=== PATIENT | male | born 1935 | race Caucasian/White ===

== ENCOUNTER → 2016-12-11 | Day surgery (SDC) | payer OTHER, MEDICARE ==
[~2016-12-11] VITALS: Ht 170.2 cm; Wt 73.5 kg
[~2016-12-11] MED LIST: CARAFATE 1GM1000 MG PO; CARDURA4 MG PO; CIPROFLOXACIN500 MG PO; FERROUS SULFAT325 M1 PO; FOLIC ACID 1 MG PO; GLIPIZIDE ER2.5 M1 PO; GLIPIZIDE ER2.5 MG PO; INDERAL LA 60MG60 MG PO; INDERAL LA60 M1 PO; MAG-OX 400400 MG PO; METFORMIN1000 MG PO; MULTIVITAMIN1 TAB PO; NATURAL IRON65 MG PO; OXYCODONE5 M1 PO; PRESERVISION A1 EAC1; PRILOSEC 20MG C20 MG PO; PROPRANOLOL HCL60 MG PO; TRAZODONE HCL100 M1 PO; Theragran Vitamins PO; VITAMIN B-150 MG PO; VITAMIN B121000 MC1 SL; VITAMIN D31000 IU PO; [UNRECOGNIZED DRUG - MIXTURE] TOP
[2016-12-11 06:20] LABS: ABSOLUTE BASOPHIL COUNT 0 /CUMM (0.0-0.2); ABSOLUTE EOSINOPHIL COUNT 0.3 /CUMM (0.0-0.7); ABSOLUTE LYMPH COUNT 0.7 /CUMM (1.2-3.4); ABSOLUTE MONOCYTE COUNT 0.9 /CUMM (0.10-0.60); BASOPHIL % 0.6 % (0.0-2.0); EOSINOPHIL % 6.3 % (0-5); GRANULOCYTE % 61.2 % (42.2-75.2); HEMATOCRIT 30.4 % (42-52); MEAN CORPUSCULAR HGB CONC 33.4 G/DL (33.0-37.0); MEAN CORPUSCULAR VOLUME 92.8 FL (80.0-94.0); MEAN PLATELET VOLUME 9.7 FL (7.4-10.4); RBC DISTRIBUTION WIDTH 15.5 % (11.5-14.5); RED BLOOD CELL CT 3.28 /CUMM (4.70-6.10)
[2016-12-11 06:25] LABS: PT 14.1 SEC (9.4-12.5)
[2016-12-11 06:37] LABS: PLATELET COUNT 84 /CUMM (130-400)
--- NOTE | 2016-12-11 11:48 | Operative Report ---
Operative/Inv Procedure Report Surgery Date: 12/11/16 Name of Procedure: Left inguinal hernia repair Pre-Operative Diagnosis: Left inguinal hernia Post-Operative Diagnosis: Same Estimated Blood Loss: scant Surgeon/Fiberglass Insulation Installer: RANJIT VAZQUEZ,HAMILTON Tillman/terry GUEVARA Anesthesia: local monitored anesthesi Implants: Plug and patch Operative/Procedure Note Note: After consent is brought to the operating room laid supine. Sedation was obtained and his left inguinal region was prepped and draped. Ilioinguinal nerve block was created with a cocktail local anesthesia. Skin and subcutaneous tissues tissues and after local anesthesia. A transverse skin crease incision was made sharply and the subcutaneous tissues dissected with cautery. We came down through Amy's fascia with cautery. The superficial epigastric vein was suture ligated with 3-0 Vicryl the inguinal canals and delineated and evidence incision made through the direction of the external fibers. This was performed sharply. Planes behind the fascia was then created bluntly cord structures were circumferentially dissected. His large hernia sac and associated cord lipoma. A Brandon drain was placed around the cords structures. The cord was then dissected and vasculature and spermatic tube were then preserved. There is large cord lipoma as well as a large indirect sac which was both dissected free down to the internal ring. Sac was opened and contained no bowel. Closed with 3-0 Vicryl and reduced through the indirect defect. A plug was then placed to hold the tissue in place. An onlay patch of mesh was then placed. It was sutured with 2-0 Prolene along the inguinal ligament. This was done a running fashion. Superiorly it was anchored with interrupted 2-0 Prolene's. The tails were then tied together to create a snug but not tight closure. The wound was irrigated with saline. Hemostasis achieved with cautery. The external oblique was then closed over the cord structures with a running 3-0 Vicryl. The incision was then closed in layers of 3-0 and 4-0 Vicryl suture. Steri-Strips and sterile dressing applied. Sponge and needle counts are correct Findings: indirect CC: STEVE VAZQUEZ,BOLIVAR Zuniga
== END ==
LOC: STS 01:42
PROVIDERS: Surgery
DX: K40.90 Unilateral inguinal hernia, without obstruction or gangrene, not specified as recurrent (principal); E11.9 Type 2 diabetes mellitus without complications; Z79.84 Long term (current) use of oral hypoglycemic drugs; K70.30 Alcoholic cirrhosis of liver without ascites; D46.9 Myelodysplastic syndrome, unspecified
CPT/HCPCS: 36415; J0131; J0690; J1100; J2250; J2405

== ENCOUNTER 2017-03-06 11:25 | Inpatient (IN) | payer OTHER, MEDICARE ==
[~2017-03-06] VITALS: Ht 170.2 cm; Wt 69.9 kg
[~2017-03-06 11:25] MED LIST changes: +CARDURA4 M1 PO; -CARDURA4 MG PO; +METFORMIN HCL1000 M1 PO; -METFORMIN1000 MG PO; -PRESERVISION A1 EAC1; +PRESERVISION A1 EAC1 PO; +VITAMIN B-121000 MC2 SL; -VITAMIN B121000 MC1 SL; -VITAMIN D31000 IU PO; +VITAMIN D31000 UNI2 PO
--- NOTE | 2017-03-06 11:57 | NUR ---
PT FELL GETTING OUT OF BED ON WEDNESDAY WAS SEEN AT CLINIC BUT DID NOT HAVE X-RAY AND PT CONT.TO HAVE PELVIC PAIN.
--- NOTE | 2017-03-06 12:03 | NUR ---
PT DECLINED PAIN ME IN TRIAGE
--- NOTE | 2017-03-06 12:49 | ED UPPER/LOWER EXTREMITY COMPL ---
History of Present Illness General Chief Complaint: Lower Extremity Problems Stated Complaint: LFT LEG/HIP PAIN S/P FALLX 2 DAYS Source: patient, family Exam Limitations: no limitations Vital Signs & Intake/Output Vital Signs & Intake/Output Vital Signs Date Time Temp Pulse Resp B/P B/P Pulse O2 O2 Flow FiO2 Mean Ox Delivery Rate 03/06 1411 97.6 68 18 152/68 100 Room Air 03/06 1158 97.2 69 16 130/63 98 Room Air Allergies Coded Allergies: NO KNOWN ALLERGIES (06/13/15) Reconcile Medications Cholecalciferol (Vitamin D3) 1,000 UNIT TABLET 1 TAB PO DAILY VITAMIN SUPPORT (Reported) Cyanocobalamin (Vitamin B-12) (Vitamin B-12) 1,000 MCG TAB.SUBL 1 TAB SL DAILY VITAMIN SUPPORT (Reported) Doxazosin Mesylate (Cardura) 4 MG TABLET 1 TAB PO DAILY PROSTATE (Reported) Ferrous Sulfate 325 MG (65 MG IRON) TABLET 1 TAB PO DAILY ANEMIA (Reported) Glipizide (Glipizide ER) 2.5 MG TAB.ER.24 1 TAB PO DAILY DM II (Reported) Metformin HCl 1,000 MG TABLET 1 TAB PO BID DIABETES (Reported) Propranolol LA (Inderal LA) 60 MG CAP.SA.24H 1 CAP PO DAILY TREMORS (Reported ) Trazodone HCl 100 MG TABLET 1 TAB PO QPM SLEEP (Reported) Vit C/E/Zn/Coppr/Lutein/Zeaxan (Preservision Areds 2 Softgel) 250-200-40 CAPSULE 1 TAB PO BID EYE (Reported) Triage Note: PT FELL GETTING OUT OF BED ON WEDNESDAY WAS SEEN AT CLINIC BUT DID NOT HAVE X-RAY AND PT CONT.TO HAVE PELVIC PAIN. Triage Nurses Notes Reviewed? yes HPI: 82 yo M PMH DM, peripheral neuropathy presenting with left hip pain s/p fall. Patient was getting out of bed 3 days ago, slipped, mechanical fall directly backwards onto buttocks, ongoing left hip pain since that time, much worse with ambulation or bearing weight, patient is unable to take more than 3-4 steps at a time with his cane (uses at baseline) secondary to pain, but seems very unsteady on his feet, is concerned he will fall again. Sustained ecchymosis to left buttocks and skin tear to right elbow. Denies head/neck trauma or pain, hedache, AMS, LOC, motor weakness, or new numbness (patient has BLE neuropathy at baseline). Denies chest pain, palpitations, SOB, dizziness or syncope associated with fall 3 days ago. Evaluated at walk 2 days ago, diagnosed with muscle contusion, no imaging, discharged, no tetanus given at that time (unknown last tetans). (CHARLENE GOMEZ MD) Past History Travel History Traveled to [place] past 21 day No Medical History Any Pertinent Medical History? 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 tracheostomy as infant. Psychosocial History Who do you live with Spouse Services at Home None What is your primary language Faroese Tobacco Use: Quit >30 days ago ETOH Use: denies use Illicit Drug Use: denies illicit drug use Family History Family History, If Any: maternal aunt, ; Cause: Alcoholic cirrhosis. Hx Contributory? Yes (CHARLENE GOMEZ MD) Review of Systems Review of Systems Constitutional: Reports: no symptoms. EENTM: Reports: no symptoms. Respiratory: Reports: no symptoms. Cardiovascular: Reports: no symptoms. Gastrointestinal/Abdominal: Reports: no symptoms. Genitourinary: Reports: no symptoms. Musculoskeletal: Reports: joint pain. Skin: Reports: no symptoms. Neurological/Psychological: Reports: no symptoms. Hematologic/Endocrine: Reports: no symptoms. Immunological: Reports: no symptoms. All Other Systems: Reviewed and Negative (CHARLENE GOMEZ MD) Physical Exam Physical Exam General Appearance: well developed/nourished, no apparent distress, alert, awake Head: atraumatic, normal appearance Eyes: Bilateral: PERRL, EOMI. Ears, Nose, Throat: normal pharynx, normal ENT inspection Neck: normal inspection, full range of motion Cardiovascular/Respiratory: normal peripheral pulses Peripheral Pulses: 2+ radial (R), 2+ radial (L), 2+ dorsalis pedis (R), 2+ dorsalis pedis (L) Gastrointestinal: Soft and non-TTP throughout Back: no vertebral tenderness Hip Left: tenderness, pain Comments: HEENT: Atraumatic, PERRL, EOMI, no nasal septal deviation or hematoma, no TTP or hematomas over scalp, no TTP over facial bones C-Spine: No midline c-spine TTP, step-offs or deformities Chest: No TTP over anterior chest wall and clavicles, equal breath sounds bilaterally Abdomen: Soft and nontender to palpation throughout Right Elbow: Skin tear over right proximal elbow, no active bleeding, full range of motion of right elbow without pain, no bony tenderness palpation over right elbow, 2+ radial pulse Left Hip: Pain with active and passive range of motion of left hip, bony tenderness to palpation over medial hip joint, 2+ DP pulses bilaterally, no motor deficits, Ecchymosis over left inferior buttocks with TTP (PATRICIA VAZQUEZ,CHARLENE) Progress Differential Diagnosis: arterial insufficiency, cellulitis, CHF, compartment syndrome, contusion, dislocation, DVT, fracture, gout, septic arthritis, sprain, tendon injury Plan of Care: Orders Procedure Date/time Status PARTIAL THROMBOPLASTIN TIME 03/06 1815 Complete PROTHROMBIN TIME 03/06 1815 Complete Admit to inpatient 03/06 1810 Active HEPATIC FUNCTION PANEL 03/06 1810 Active HEPATIC FUNCTION PANEL 03/06 172 Active CBC WITHOUT DIFFERENTIAL 03/06 1722 Complete BASIC METABOLIC PANEL 03/06 1722 Active Laboratory Tests 03/06/17 1835: PT 14.0 H, INR 1.34 H, APTT 35 03/06/17 1816: Total Bilirubin Cancelled, Direct Bilirubin Cancelled, AST Cancelled, ALT Cancelled, Alkaline Phosphatase Cancelled, Total Protein Cancelled, Albumin Cancelled 03/06/171809: Sodium Pending, Potassium Pending, Chloride Pending, Carbon Dioxide Pending, Anion Gap Pending, BUN Pending, Creatinine Pending, BUN/Creatinine Ratio Pending , Glucose Pending, Calcium Pending, Total Bilirubin Pending, Direct Bilirubin Pending, AST Pending, ALT Pending, Alkaline Phosphatase Pending, Total Protein Pending, Albumin Pending, CBC w Diff NO MAN DIFF REQ, RBC 3.40 L, MCV 93.5, MCH 31.3 H, RDW 16.6 H, MPV 9.6, Gran % 73.4, Lymphocytes % 12.1 L, Monocytes % 11.8 H, Eosinophils % 2.5, Basophils % 0.2, Absolute Granulocytes 4.0, Absolute Lymphocytes 0.7 L, Absolute Monocytes 0.6, Absolute Eosinophils 0.1, Absolute Basophils 0, PUBS MCHC 33.4 Physician MDM: 82 yo M PMH DM, peripheral neuropathy presenting with left hip pain s/p fall. VSS, trauma exam as above. DDx: Hip Fx, pelvic Fx, soft tissue injury, low concern for significant traumatic injury to head, C-spine, thorax, abdomen, or other extremities. Pelvis and left Hip XR with "Increased sclerosis of the left inferior pubic ramus questionable for fracture." Pelvis CT with "Acute nondisplaced left pubic ramus fracture." Patient unable to ambulate in ED more than 2-3 step without cane, very unsteady on his feet requiring support from multiple individuals to get back into bed. Given patient has underlying neuropathy, now with left inferior pubic ramus fracture, he has a multifactorial gait disorder and is not safe for discharge. Will admit for ongoing pain control, PT, nonemergent orthopedics consult if needed. The plan of care was discussed with the patient his expressed agreement and understanding. (PATRICIA VAZQUEZ,CHARLENE) Departure Departure Disposition: STILL A PATIENT Condition: Stable Clinical Impression Primary Impression: Fracture of left inferior pubic ramus Secondary Impressions: Unable to ambulate Referrals: STEVE VAZQUEZ,BOLIVAR Zuniga (PCP/Family) Departure Forms: Customer Survey General Discharge Information Admission Note Spoke With: WILLIAM SCHULTZ MD Documentation of Exam: Documentation of any treatments & extenuating circumstances including Concerns Regarding Discharge (functional status, medication knowledge or non-compliance, living conditions, etc.) that warrant an admission rather than observation: [ Patient presents with inability to ambulate after a fall 3 days ago, found to have left inferior pubic ramus fracture, patient unable to ambulate without marked assistance in ED, Significant concern that if the patient was discharged he would likely fall again resulting in further tabetic injury, or rigidity, possibly mortality, patient requires, furthermore the patient has baseline neuropathy that impairs his gait, now with an inferior ramus fracture the patient has a multifactorial gait disorder that will prevent him from walking safely unassisted, patient of ours admission for pain management, PT consult, orthopedics consult, monitoring and further management.] (PATRICIA VAZQUEZ,CHARLENE) Resident Co-Sign Statement Statement: ED Attending supervision documentation- I saw and evaluated the patient. I have also reviewed all the pertinent lab results and diagnostic results. I agree with the findings and the plan of care as documented in the Resident's documentation. x I have reviewed the ED Record and agree with the Resident's documentation. [] Additions or exceptions (if any) to the Resident's note and plan are summarized below: [] (LOIS VAZQUEZ,RHONA)
--- NOTE | 2017-03-06 13:07 | NUR ---
TO X-RAY VIA STRECHER
--- NOTE | 2017-03-06 13:15 | NUR ---
SEEN BY BRIGETTE VAZQUEZ
--- NOTE | 2017-03-06 13:51 | RADIOLOGY REPORT ---
EXAMINATION: XR HIP, LEFT CLINICAL INFORMATION: Fall. Evaluate for fracture. COMPARISON: None TECHNIQUE: Two views of the left hip and one view of the pelvis. FINDINGS: Bone alignment is normal. There is increased sclerosis of the left inferior pubic ramus questionable for fracture. No other fracture or dislocation is seen. There is arthritis at both hip joints. Degenerative changes of the visualized lower lumbar spine. There is evidence of atherosclerotic disease. There is a central calcification in the pelvis, questionable for possible bladder stone. IMPRESSION: Increased sclerosis of the left inferior pubic ramus questionable for fracture. Bilateral hip arthritis. Atherosclerotic disease. Question bladder stone.
[2017-03-06] MEDS ORDERED: FERROUS SULFAT325 M3 PO (15:08)
--- NOTE | 2017-03-06 15:13 | NUR ---
TO CT SCAN
--- NOTE | 2017-03-06 16:36 | CT SCAN REPORT ---
EXAMINATION: CT PELVIS WITHOUT CONTRAST CLINICAL INFORMATION: Difficulty weightbearing. Pain. History of fall. COMPARISON: Pelvis and left hip x-ray from earlier today. TECHNIQUE: Helical scanning was performed with submillimeter collimation through the pelvis. Sagittal and coronal multiplanar 2-D reconstructions were obtained. DLP: 511 mGy-cm FINDINGS: PELVIS: There is congestion of the small-bowel mesentery. There is evidence of diverticulosis. There is ascites. There is a 5 x 10 mm bladder stone. There is question of smaller layering stones versus dependent bladder wall calcification. The prostate gland is enlarged. There is evidence of atherosclerotic disease. OSSEOUS STRUCTURES: There is an acute nondisplaced fracture of the left inferior pubic ramus. No other fracture is seen. The bones are osteopenic. There is arthritis at the hip joints. There is degenerative disc disease of the visualized lower lumbar spine. IMPRESSION: Acute nondisplaced left pubic ramus fracture. No other fracture seen. Diverticulosis. Nonspecific haziness or congestion of the small-bowel mesentery. 5 x 10 mm bladder stone. Question smaller bladder stones versus dependent bladder wall calcification. Small amount of ascites.
--- NOTE | 2017-03-06 17:49 | NUR ---
PATIENT REMIANS ALERT ORIENTED SKIN WARM DRY RE-EVAL BY ER MD SEEN BY CASE MANAGEMENT TBA FOR REHAB DUE TO PELVIC FX GIVEN AFTERNOON TRAY
--- NOTE | 2017-03-06 18:26 | NUR ---
IV MED LOCK EST 22 LEFT UPPER F/A BLOOD WORK DRAWN AND SENT
[2017-03-06 18:31] LABS: ABSOLUTE BASOPHIL COUNT 0 /CUMM (0.0-0.2); ABSOLUTE EOSINOPHIL COUNT 0.1 /CUMM (0.0-0.7); ABSOLUTE LYMPH COUNT 0.7 /CUMM (1.2-3.4); ABSOLUTE MONOCYTE COUNT 0.6 /CUMM (0.10-0.60); BASOPHIL % 0.2 % (0.0-2.0); EOSINOPHIL % 2.5 % (0-5); GRANULOCYTE % 73.4 % (42.2-75.2); HEMATOCRIT 31.8 % (42-52); MEAN CORPUSCULAR HGB 31.3 PG (27.0-31.0); MEAN CORPUSCULAR HGB CONC 33.4 G/DL (33.0-37.0); MEAN CORPUSCULAR VOLUME 93.5 FL (80.0-94.0); MEAN PLATELET VOLUME 9.6 FL (7.4-10.4); PLATELET COUNT 91 /CUMM (130-400); RBC DISTRIBUTION WIDTH 16.6 % (11.5-14.5); WHITE BLOOD CELL COUNT 5.4 /CUMM (4.8-10.8)
[2017-03-06 18:52] LABS: PTT 35 SEC (25-37)
--- NOTE | 2017-03-06 19:09 | NUR ---
ASSUMED CARE OF PT PER ROHAN SANZ. PT LAYING ON STRETCHER WITH RR, WILL CONTINUE T O MONITOR. PT OFFERS NO COMPLAINTS AT THIS TIME.
--- NOTE | 2017-03-06 19:15 | NUR ---
FALL BRACELET PLACED ON PTS LEFT WRIST
--- NOTE | 2017-03-06 19:45 | NUR ---
DR SCHULTZ IN FOR EVAL
--- NOTE | 2017-03-06 20:44 | NUR ---
HOUSE STAFF IN FOR EVAL
--- NOTE | 2017-03-06 21:38 | NUR ---
PT BED ASSIGNMENT TO [id number]
--- NOTE | 2017-03-06 21:44 | History & Physical ---
[facility] 03/06/172136: General Information and HPI MD Statement: I have seen and personally examined PEDRO MYERS and documented this H&P. The patient is a 82 year old M who presented with a patient stated chief complaint of [inability to walk and left hip pain for two days.]. Exam Limitations: no limitations History of Present Illness: 82 YO M gentleman ex-smoker(1 PACK/D QUIT 40 Yrs back) PMH of diabetes mellitus with complication, peripheral neuropathy, alcoholic cirrhosis, portal hypertension with gastropathy, esophageal varices status post band ligation, essential tremors, cholelithiasis, thrombocytopenia(d/t portal hypertension), anxiety, depression, insomnia and inguinal hernia status post surgical repair presented to ED with complaint of inability to move and pain in left buttock for last 2 days. According to patient he was all right two days back when he woke up at 1:30am to urinate but lost his balance and fell down. He hit his buttock to ground and also hit his elbow to the dressing table. According to patient his son came in and helped him to get up and when he tried to walk he noticed pain in left buttock that increases on on walking, sharp pain, 10/10 on walking, nonradiating and and there is no pain at rest. He also noticed a bruise on his left buttock and a abrasion on his left elbow. He said he doesn't have any pain in left elbow and no moment restrictions. He also told us that he has a problem of BPH and sometimes he loses control on urination while getting out of the bed. He also reported that he is taking propranolol for tremors and portal hypertension but he stoped it one month back. He denied any chest pain, palpitations, nausea, vomiting, change in vision, sweating, shortness of breath, headache, shakiness in the body, loss of consciousness after fall, confusion after fall, fever and recent sore throat. Vitals signs stable on admission Alert oriented x3, cooperative, no distress, multiple ecchymosis on both forearms and abrasion on left elbow, and a bandage on right elbow. HEENT Atraumatic, PERRLA, EOMI CVS: R/R/R, S1+S2+0 Lungs: CTA, bilateral air entry normal Abdomen: Normal bowel sounds, nontender Neurological examination: Normal speech, power: 5/5 B/L X4, sensations: Impaired below the knees Bilateral pedal edema grade 1 LABS: Hemoglobin 10.6, bilirubin 1.4, platelets 91 Imaging: X-ray left hip:Increased sclerosis of the left inferior pubic ramus questionable for fracture. Bilateral hip arthritis. Atherosclerotic disease. Question bladder stone. CT scan:Acute nondisplaced left pubic ramus fracture. No other fracture seen. Diverticulosis. Nonspecific haziness or congestion of the small-bowel mesentery. 5 x 10 mm bladder stone. Question smaller bladder stones versus dependent bladder wall calcification. Small amount of ascites. ASSESSMENT/PLAN: Nondisplaced left pubic rami fracture status post mechanical fall Admitting general medicine floor Check Orthostatic vitals Baseline EKG X-ray right elbow tomorrow Tylenol for mild pain and tramadol for severe pain Orthopedic consult PT consult CIRRHOSIS/LOW PLT COUNT : Continue propranolol by mouth 10 mgXTID Low-sodium diet No HEPARIN No NSAIDs Continue vitamins FOR BPH: Continue doxazosin Follow-up with PCP for bladder stone ANEMIA: Watch for bleeding, CBCs in the morning Continue iron supplement. CODE STATUS: Full code, DVT PROPHYLAXIS: mechanical DVT prophylaxis Allergies/Medications Allergies: Coded Allergies: NO KNOWN ALLERGIES (06/13/15) Home Med list Cholecalciferol (Vitamin D3) 1,000 UNIT TABLET 1 TAB PO DAILY VITAMIN SUPPORT (Reported) Cyanocobalamin (Vitamin B-12) (Vitamin B-12) 1,000 MCG TAB.SUBL 1 TAB SL DAILY VITAMIN SUPPORT (Reported) Doxazosin Mesylate (Cardura) 4 MG TABLET 1 TAB PO DAILY PROSTATE (Reported) Ferrous Sulfate 325 MG (65 MG IRON) TABLET 1 TAB PO DAILY ANEMIA (Reported) Glipizide (Glipizide ER) 2.5 MG TAB.ER.24 1 TAB PO DAILY DM II (Reported) Metformin HCl 1,000 MG TABLET 1 TAB PO BID DIABETES (Reported) Propranolol LA (Inderal LA) 60 MG CAP.SA.24H 1 CAP PO DAILY TREMORS (Reported ) Trazodone HCl 100 MG TABLET 1 TAB PO QPM SLEEP (Reported) Vit C/E/Zn/Coppr/Lutein/Zeaxan (Preservision Areds 2 Softgel) 250-200-40 CAPSULE 1 TAB PO BID EYE (Reported) Past History Travel History Traveled to [place] past 21 day No Medical History Neurological: peripheral neuropathy, essential tremor EENT: hearing loss Cardiovascular: NONE Respiratory: NONE Gastrointestinal: Esophageal varices, band ligated Junctional varices Portal hypertensive gastropathy Hepatic: cholelithiasis, cirrhosis Renal: NONE Musculoskeletal: NONE Psychiatric: anxiety, depression, insomnia Endocrine: diabetes Blood Disorders: thrombocytopenia (cirrhotic) Cancer(s): NONE 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 tracheostomy as . Past Family/Social History Family History Relations & Conditions if any maternal aunt, ; Cause: Alcoholic cirrhosis. Psychosocial History Who Do You Live With? spouse Services at Home: None Primary Language: Turkish ETOH Use: denies use Illicit Drug Use: denies illicit drug use Living Will? full code Power of Relocation Counselor/HCP? unknown Functional Ability ADLs Independent: dressing, eating, toileting, bathing. Ambulation: independent IADLs Independent: shopping, housework, finances, food prep, telephone, transportation , medication admin. Review of Systems Review of Systems Constitutional: Reports: no symptoms. EENTM: Reports: no symptoms. Cardiovascular: Reports: edema. Respiratory: Reports: no symptoms. GI: Reports: constipation. Genitourinary: Reports: urgency. Musculoskeletal: Reports: no symptoms. Skin: Reports: no symptoms. Neurological/Psychological: Reports: tremors. Hematologic/Endocrine: Reports: bruising. Immunologic/Allergic: Reports: no symptoms. Exam & Diagnostic Data Last 24 Hrs of Vital Signs/I&O Vital Signs Date Time Temp Pulse Resp B/P B/P Pulse O2 O2 Flow FiO2 Mean Ox Delivery Rate 03/06 1911 98.6 72 18 151/69 97 Room Air 03/06 1411 97.6 68 18 152/68 100 Room Air 03/06 1158 97.2 69 16 130/63 98 Room Air Intake & Output 03/07 0800 03/07 0000 03/06 1600 Intake Total 250 Output Total 100 400 Balance -100 -150 Intake, Oral 250 Output, Urine 100 400 Patient 154 lb 154 lb Weight Weight Reported by Patient Reported by Patient Measurement Method Physical Exam General Appearance Alert, Oriented X3, Cooperative, No Acute Distress Skin No Rashes Skin Temp/Moisture Exam: Warm/Dry HEENT Atraumatic, PERRLA, EOMI Neck Supple Cardiovascular Regular Rate, Normal S1, Normal S2 Lungs Clear to Auscultation, Normal Air Movement Abdomen Normal Bowel Sounds, Soft, No Tenderness Neurological Normal Speech, Strength at 5/5 X4 Ext, Normal Tone, Cranial Nerves 3-12 NL Assessment/Plan Assessment: ASSESSMENT/PLAN: Nondisplaced left pubic rami fracture status post mechanical fall Admitting general medicine floor Check Orthostatic vitals Baseline EKG X-ray right elbow tomorrow Tylenol for mild pain and tramadol for severe pain Orthopedic consult PT consult CIRRHOSIS/LOW PLT COUNT : Continue propranolol by mouth 10 mgXTID Low-sodium diet No HEPARIN No NSAIDs Continue vitamins FOR BPH: Continue doxazosin Follow-up with PCP for bladder stone ANEMIA: Watch for bleeding, CBCs in the morning Continue iron supplement. CODE STATUS: Full code, DVT PROPHYLAXIS: mechanical DVT prophylaxis As Ranked By This Provider Problem List: 1. Fracture of left inferior pubic ramus 2. Cirrhosis 3. Thrombocytopenia 4. Esophageal varices Core Measures/Miscellaneous Acute Coronary Syndrome ACS Diagnosis: No Cerebrovascular Accident CVA/TIA Diagnosis: No Congestive Heart Failure CHF Diagnosis: No VTE (View Protocol) VTE Risk Factors: Age > 40 [facility] prophylaxis d/t: No contraindications No VTE Pharm Prophylaxis d/t: Medical contraindication VTE Diagnosis: No VTE Type: NONE VTE Confirmed by (Test): NONE Sepsis (View Protocol) Severe Sepsis Present: No Septic Shock Septic Shock Present: No Miscellaneous Documentation Attending Case Discussed With: Dr. ANTOINE THOMAS Primary Care Physician: STEVE VAZQUEZ,BOLIVAR Zuniga Patient sees these Specialists ORTHOPEDICS Level of Patient Care: General Medicine JAVAD MURO 03/06/173: Resident Review Statement Resident Statement: examined this patient, discussed with pharmacy graduate intern, agreed with pharmacy graduate intern, amended to note Other Findings: 82-year-old gentleman with past medical history of diabetes type 2 with diabetic neuropathy,essentional termors, alcoholic? cirrhosis and history of variceal bleeding status post gastric banding(on proponanol till 1 month ago, it was stopped by PCP due to tiredness), inguinal hernia status post repair ,BPH on doxazosin, trazodone for sleeping using cane for walking came with chief complaint of left hip pain which has been going on for 2 days. he reported that he fell at 1:30 AM about 2-3 days ago while standing up from the bed to go to the bathroom no loss of consciousness, dizziness, palpitations, sweating, chest pain, shortness of breath. Patient was able to walk small steps with pain 10 out of 10, nonradiating, sharp, allerivate with rest, contant while walking. He does not have any back pain however he does have urinary incontinency with drippling which is chronic. ex smoker, does not drink since 3 years ago. A deep also hit his head and had a bruise in his left buttocks and had a skin tear on the tight elbow. Patient reported that the pain on walking got worse for 2 days and Tylenol didn't help and he came to the hospital for direct. Vital signs on admission were stable Alert and oriented 3 HEENT Atraumatic, PERRLA, EOMI Cardiovascular Regular Rate, Normal S1, Normal S2 Lungs Clear to Auscultation, Normal Air Movement Abdomen Normal Bowel Sounds, Soft, No Tenderness, Neurological Normal Speech, Strength at 5/5 X4 Ext, Sensation impaired below both knees Extremities bilateral pedal edema to one third of the loving, Bandage on the right elbow, bruise on the left buttocks, No major limitation on passive movement of the left hip Labs were notable for anemia hemoglobin 10.6, bilirubin 1.4, platelet 91 CT of the hip IMPRESSION: Acute nondisplaced left pubic ramus fracture. No other fracture seen. Diverticulosis. Nonspecific haziness or congestion of the small-bowel mesentery. 5 x 10 mm bladder stone. Question smaller bladder stones versus dependent bladder wall calcification. Small amount of ascites. Assessment and plan #Nondisplaced left pubic ramus fracture status post mechanical fall -Admit to general medicine floor -check orthostatics -baseline EKG -Tylenol for mild and tramadol for severe pain -Orthopedic consult in the morning and PT consult # hx of Cirrhosis/ low plt -no NSAIDS - restart Propanolol by mouth 10 mg TID -low sodium diet - No heparin Sq for now -Continue B12 and multivitamin #hx of BPH/ new found bladder stone -Continue doxazosin -Follow-up with PCP for bladder stone Anemia -Stable, watch for bleeding, CBC in the morning -Continue iron supplementation insomnia/anxiety -Continue trazodone Full code, DVT prophylaxis is mechanical, diabetic and low sodium diet, Tylenol and tramadol for pain WILLIAM SCHULTZ 03/07/17 0045: Attending MD Review Statement Attending Statement Attending MD Statement: examined this patient, discuss w/resident/PA/CIVIL DESIGNER, agreed w/resident/PA/CIVIL DESIGNER, reviewed EMR data (avail), reviewed images, amended to note Attending Assessment/Plan: CC: Left groin pain persistent after fall PMH: DM, cirrhosis with esophageal varices, ascites, history of tremors, peripheral neuropathy Patient had fall on in [place] where he was visiting. He states that it's unclear how he fell down, he was conscious throughout, the space was narrow and surroundings were unfamiliar, so he may have had accidental fall according to him. He Did not have any palpitations, chest pain, loss of consciousness, head trauma before or after the fall. Next morning patient went to urgent care with the did x-ray of his left hip and some dressing for the wound on right arm. X-ray was negative and he was suggested pain control. Patient persisted to have pain in left groin and pelvic area. He returned back to [place] today. Last 3 days patient was barely able to walk with the help of cane because of pain, he did not notice any neurological weakness in lower extremity, back pain, blood in urine. No alcohol since 3 year Vitals: Unremarkable On exam: A O 3, cooperative, no acute distress, neck supple, JVD normal, no lymphadenopathy, mucosa moist, no focal neurological deficit, trace edema around ankle and feet, Ecchymosis over left inferior buttocks, Skin tear over right proximal elbow, trace bleeding, ? bony tenderness over lateral epicondyle CVS: S1-S2, RRR, systolic flow murmur. RS: Clear to auscultate bilaterally. Abdomen: Soft, NT, ND, bowel sounds present. Tenderness on palpation left groin, hip. Peripheral pulses, color, temperature normal. exam normal Labs: WBC 5.4, hemoglobin 10.6, hematocrit 31.8, platelets 91, BMP unremarkable, glucose 138, bilirubin 1.4, AST 35, AST 40, albumin 3.9, INR 1.34 X-ray left hip: Increased sclerosis of the left inferior pubic ramus questionable for fracture. Bilateral hip arthritis. Atherosclerotic disease. Question bladder stone. CT pelvis without IV contrast: Acute nondisplaced left pubic ramus fracture. No other fracture seen. Diverticulosis. Nonspecific haziness or congestion of the small-bowel mesentery. 5 x 10 mm bladder stone. Question smaller bladder stones versus dependent bladder wall calcification. Small amount of ascites. A and P 82-year-old male presented in ER for persistent left groin, pelvic pain after sustaining fall 3 days back. Fall appears accidental, no chest pain, loss of consciousness or palpitations before or after fall. Patient was evaluated in urgent care on that day, x-ray of left hip did not show any fracture, wound on the right arm was dressed. Patient's walking was limited because of the pain. Repeat imaging in the ER shows nondisplaced fracture of left pubis trauma. Skin tear present on lateral aspect of right arm. Questionable bony tenderness on lateral epicondyles. Patient has history of cirrhosis with bleeding analysis last year, status post banding which explains his anemia, ascites. Appears to be stable. + Accidental fall + Nondisplaced left pubic ramus fracture + History of DM, peripheral neuropathy, cirrhosis with history of a esophageal varices and ascites - Admit to general medicine - Adequate pain control - OT PT evaluation - Orthopedic consult in a.m. - ekg - orthostatic vitals in Am - Continue all his home medications - X-ray of right arm - DVT prophylaxis with Alps - Hold metformin and glipizide, continue sliding scale insulin - Patient's propranolol was recently discontinued, would suggest restarting propranolol upon discharge for his history of bleeding esophageal varices - Evaluate for short-term rehabilitation
--- NOTE | 2017-03-06 22:06 | NUR ---
PTS FS 125
--- NOTE | 2017-03-06 22:11 | NUR ---
REPORT GIVEN TO SANTANA, TRANSPORT BOOKED
--- NOTE | 2017-03-06 22:17 | NUR ---
CHANGE TO ROOM 206
--- NOTE | 2017-03-07 00:47 | Admission Certification ---
Admission Certification Certification Statement - As attending physician, I certify that at the time of - admission, based on clinical presentation, severity of - symptoms, need for further diagnostic testing and - therapeutic interventions, and risk of adverse outcomes - without in-hospital treatment, in my clinical assessment, - this patient requires an acute hospital stay for a minimum - of two nights or longer. I have also considered psychsocial - factors such as support system, advanced age, financial - issues, cognitive issues, and failed out-patient treatments, - past re-admission history, safety of patient, and lack of - compliance as applicable. Specific rationale supporting this admission is: left pubic ramus fracture s/p fall
[2017-03-07 06:29] VITALS: BP 132/62
[2017-03-07 08:15] LABS: ABSOLUTE BASOPHIL COUNT 0 /CUMM (0.0-0.2); ABSOLUTE EOSINOPHIL COUNT 0.2 /CUMM (0.0-0.7); ABSOLUTE GRANULOCYTE CT 3.5 /CUMM (1.4-6.5); ABSOLUTE LYMPH COUNT 0.5 /CUMM (1.2-3.4); ABSOLUTE MONOCYTE COUNT 0.6 /CUMM (0.10-0.60); BASOPHIL % 0.3 % (0.0-2.0); EOSINOPHIL % 3.8 % (0-5); GRANULOCYTE % 73.8 % (42.2-75.2); HEMATOCRIT 27.7 % (42-52); MEAN CORPUSCULAR HGB CONC 33.3 G/DL (33.0-37.0); MEAN CORPUSCULAR VOLUME 93.2 FL (80.0-94.0); MEAN PLATELET VOLUME 10.5 FL (7.4-10.4); PLATELET COUNT 76 /CUMM (130-400); RBC DISTRIBUTION WIDTH 15.8 % (11.5-14.5); RED BLOOD CELL CT 2.97 /CUMM (4.70-6.10); WHITE BLOOD CELL COUNT 4.8 /CUMM (4.8-10.8)
[2017-03-07 09:05] LABS: PT 14.1 SEC (9.4-12.5)
--- NOTE | 2017-03-07 10:28 | RADIOLOGY REPORT ---
EXAMINATION: XR ELBOW, RIGHT CLINICAL INFORMATION: History of fall, complaining of pain in the elbow. COMPARISON: None TECHNIQUE: AP, lateral, and oblique views of the right elbow. Total of 4 images. FINDINGS: The bony alignment is intact. The cortices are intact. There is no joint effusion present. Incidental note is made of mild osteoarthrosis of the right elbow and evidence of enthesopathy at the insertional site of the triceps tendon to the olecranon process. Note is also made of cortical irregularity and suggestion of new bone formation at both medial as well as lateral epicondyles, consistent with epicondylitis/flexor, extensor tendinopathy tendinitis. IMPRESSION: 1. No radiographic evidence of any displaced fracture and/or joint effusion identified at the right elbow. 2. Incidental note is made of mild osteoarthrosis, enthesopathy at the insertional site of the triceps tendon to the acromion process and features suggestive of medial, lateral epicondylitis/flexor, extensor tendinopathy/tendinitis.
--- NOTE | 2017-03-07 12:00 | PN- Housestaff ---
See Addendum Subjective Follow-up For: Mechanical fall, hip fracture Subjective: Overnight events. He is feeling okay this morning. He is 0 out of 10 pain when sitting, his increases to 910 out of 10 pain with walking. His elbows not hurting at this time. No chest pain or shortness of breath. Review of Systems Constitutional: Reports: no symptoms. EENTM: Reports: no symptoms. Cardiovascular: Reports: no symptoms. Respiratory: Reports: no symptoms. Gastrointestinal: Reports: no symptoms. Genitourinary: Reports: no symptoms. Musculoskeletal: Reports: see HPI. Skin: Reports: no symptoms. Neurological/Psychological: Reports: no symptoms. Hematologic/Endocrine: Reports: no symptoms. Immunologic/Allergic: Reports: no symptoms. Objective Last 24 Hrs of Vital Signs/I&O Vital Signs Date Time Temp Pulse Resp B/P B/P Pulse O2 O2 Flow FiO2 Mean Ox Delivery Rate 03/07 0629 98.0 73 20 132/62 96 03/07 0621 73 132/62 03/06 1911 98.6 72 18 151/69 97 Room Air 03/06 1411 97.6 68 18 152/68 100 Room Air 03/06 1158 97.2 69 16 130/63 98 Room Air Intake & Output 03/07 1600 03/07 0800 03/07 0000 Intake Total 200 250 Output Total 250 400 Balance -50 -150 Intake, Oral 200 250 Output, Urine 250 400 Patient 154 lb Weight Weight Reported by Patient Measurement Method Physical Exam General Appearance: Alert, Oriented X3, Cooperative, No Acute Distress Cardiovascular: Regular Rate, Normal S1, Normal S2 Lungs: Clear to Auscultation Abdomen: Normal Bowel Sounds, Soft, No Tenderness Extremities: right elbow bandaged Current Medications: Current Medications Sig/Sidra Start time Last Medication Dose Route Stop Time Status Admin Acetaminophen 650 MG Q6P PRN 03/06 2115 AC PO Cholecalciferol 1,000 IU DAILY 03/07 1000 AC 03/07 PO 1012 Cyanocobalamin 1,000 MCG DAILY 03/07 1000 AC 03/07 PO 1012 Doxazosin Mesylate 4 MG QPM 03/06 2300 AC 03/07 PO 0107 Ferrous Sulfate 325 MG DAILY 03/06 2300 AC 03/07 PO 1012 Insulin Aspart 0 TIDAC 03/07 0800 AC SC Multivitamins 1 TAB DAILY 03/07 1000 AC 03/07 PO 1012 Propranolol HCl 10 MG Q8 03/07 0600 AC 03/07 PO 0621 Tetanus/Diphtheria 0 .STK-MED ONE 03/06 1828 DC Toxoids Adsorbed IM Tetanus/Diphtheria 0.5 ML ONCE ONE 03/06 1815 DC 03/06 Toxoids Adsorbed IM 03/06 Tramadol HCl 25 MG Q6-PRN PRN 03/06 2115 AC PO Trazodone HCl 100 MG QPM 03/060 AC 03/07 PO 0108 Last 24 Hrs of Lab/Herb Results Last 24 Hrs of Labs/Mics: Laboratory Tests 03/07/17 0837: PT 14.1 H, INR 1.35 H 03/07/17 0637: Anion Gap 9, Estimated GFR > 60, BUN/Creatinine Ratio 30.0 H, Total Bilirubin 1.4 H, Direct Bilirubin 0.3, AST 31, ALT 40, Alkaline Phosphatase 81, Total Protein 6.6, Albumin 3.2 L, CBC w Diff NO MAN DIFF REQ, RBC 2.97 L, MCV 93.2, MCH 31.0, RDW 15.8 H, MPV 10.5 H, Gran % 73.8, Lymphocytes % 10.2 L, Monocytes % 11.9 H, Eosinophils % 3.8, Basophils % 0.3, Absolute Granulocytes 3.5, Absolute Lymphocytes 0.5 L, Absolute Monocytes 0.6, Absolute Eosinophils 0.2, Absolute Basophils 0, PUBS MCHC 33.3 03/06/17 1835: PT 14.0 H, INR 1.34 H, APTT 35 03/06/171815: Total Bilirubin Cancelled, Direct Bilirubin Cancelled, AST Cancelled, ALT Cancelled, Alkaline Phosphatase Cancelled, Total Protein Cancelled, Albumin Cancelled 03/06/171809: Anion Gap 13, Estimated GFR > 60, BUN/Creatinine Ratio 28.6 H, Glucose 138 H, Calcium 9.9, Total Bilirubin 1.4 H, Direct Bilirubin 0.4, AST 35, ALT 40, Alkaline Phosphatase 98, Total Protein 8.1, Albumin 3.9, CBC w Diff NO MAN DIFF REQ, RBC 3.40 L, MCV 93.5, MCH 31.3 H, RDW 16.6 H, MPV 9.6, Gran % 73.4, Lymphocytes % 12.1 L, Monocytes % 11.8 H, Eosinophils % 2.5, Basophils % 0.2, Absolute Granulocytes 4.0, Absolute Lymphocytes 0.7 L, Absolute Monocytes 0.6, Absolute Eosinophils 0.1, Absolute Basophils 0, PUBS MCHC 33.4 Assessment/Plan Assessment: Mr. Feliz is a 82 YO M gentleman ex-smoker(1 PACK/D QUIT 40 Yrs back) PMH of diabetes mellitus with complication, peripheral neuropathy, alcoholic cirrhosis, portal hypertension with gastropathy, esophageal varices status post band ligation, essential tremors, cholelithiasis, thrombocytopenia(d/t portal hypertension), anxiety, depression, insomnia and inguinal hernia status post surgical repair presented to ED with complaint of inability to move and pain in left buttock for last 2 days. On presentation, vital signs were 297.2, HR 69, RR 16, BP 130/63, satting 98% on room air. Labs were significant for no leukocytosis, hemoglobin 10.6, platelets 91, bilirubin 1.4, INR 1.34. Hip x-ray showed increased sclerosis of the left inferior pubic ramus she will for fracture, bilateral hip arthritis. Pelvic CT showed acute nondisplaced left pubic ramus fracture. He was admitted to general medicine and treated for the following conditions: 1. Nondisplaced left pubic rami fracture status post mechanical fall 2. Elbow pain #Nondisplaced left pubic rami fracture status post mechanical fall -Tylenol for mild pain and tramadol for severe pain -Orthopedic consult -PT consult #Elbow pain: X-ray shows no fracture. Incidental mild osteoarthritis, features suggestive of epicondylitis/tendinitis potentially. -Follow up orthopedics recommendations CIRRHOSIS/LOW PLT COUNT : Continue propranolol by mouth 10 mgXTID Low-sodium diet No HEPARIN No NSAIDs Continue vitamins FOR BPH: Continue doxazosin Follow-up with PCP for bladder stone ANEMIA: Watch for bleeding, CBCs in the morning Continue iron supplement. CODE STATUS: Full code, DVT PROPHYLAXIS: mechanical DVT prophylaxis Problem List: 1. Fracture of left inferior pubic ramus 2. Epicondylitis Pain Ratin Pain Location: hip Pain Goal: Remain pain free Pain Plan: see a/p Tomorrow's Labs & Rationales: cbc, bep
[2017-03-07 15:15] VITALS: BP 140/61
[2017-03-07 22:00] VITALS: BP 130/70
[2017-03-08 07:34] VITALS: BP 154/66
--- NOTE | 2017-03-08 08:13 | Discharge Summary ---
Visit Information Visit Dates Admission Date: 03/06/17 Discharge Date: 03/08/17 Hospital Course Course Attending Physician: CHRISTINA VAZQUEZ,ANTONIO Rossi Primary Care Physician: STEVE VAZQUEZ,BOLIVAR Zuniga Hospital Course: Mr. Feliz is a 82 YO M gentleman ex-smoker(1 PACK/D QUIT 40 Yrs back) PMH of diabetes mellitus with complication, peripheral neuropathy, alcoholic cirrhosis, portal hypertension with gastropathy, esophageal varices status post band ligation, essential tremors, cholelithiasis, thrombocytopenia(d/t portal hypertension), anxiety, depression, insomnia and inguinal hernia status post surgical repair presented to ED with complaint of inability to move and pain in left buttock for last 2 days. On presentation the emergency department, vital signs were T 97.2, HR 69, RR 16, BP 130/63, satting 90% on room air. Labs are significant for white blood cell count 5.4, hemoglobin 10.6, platelets 91, glucose 138, total bilirubin 1.4. He was admitted to the general medicine floor and treated for the following problems: 1. Nondisplaced left pubic rami fracture status post mechanical fall 2. Epicondylitis 3. Incidental bladder stone on CT 4. Thrombocytopenia and anemia secondary to cirrhosis 5. Benign prostate hyperplasia #Nondisplaced left pubic rami fracture status post mechanical fall. On presentation is significant pain with ambulation. Hip x-ray showed increased sclerosis of the left inferior pubic ramus and bilateral hip arthritis. Pelvic CT showed acute nondisplaced left pubic ramus fracture. He was treated conservatively, orthopedics recommended no surgery that time. PT evaluated him and recommended home with services. He should follow up with orthopedics as PCP in one week. #Epicondylitis: Upon presentation but elbow pain. X-ray of the elbow showed no displaced fracture or joint effusion, but there was features suggestive of epicondylitis and/or tendinitis. Xeroform dressing was applied. He should follow-up with his PCP and orthopedisst for this. #Incidental finding: CT scan showed bladder stone. He had no urinary complaints. He should follow up with his PCP for this. #thrombocytopenia/anemia secondary to cirrhosis: This is likely chronic in nature. He was kept on a low-sodium diet and heparin and NSAIDs were avoided. He is continued on his home vitamins. #History of esophageal varices: Propanolol was discontinued in context of generalized weakness. EGD in July 2016 showed varices that were not banded. He should follow-up with Dr. Malave, for endoscopy in 1 week. #BPH: He is continued on his home doxazosin. Allergies: Coded Allergies: NO KNOWN ALLERGIES (06/13/15) Disposition Summary Disposition Principal Diagnosis: Left anterior pubic ramus fracture Additional Diagnosis: Epicondylitis, bladder syndrome, thrombocytopenia Discharge Disposition: home health services Discharge Instructions General Discharge Information Code Status: Full Code Patient's Diet: Low-sodium diet Patient's Activity: As tolerated with walker Follow-Up Instructions/Appts: Please follow up with orthopedic surgery in 1 week. Please follow-up with Dr. Up, urology, in 1 week. Please follow up with her PCP in one week. Please follow-up with Dr. Malave in one week for endoscopy. Please take all medications as directed. Medications at Discharge Discharge Medications: Stop taking the following medications: Propranolol LA (Inderal LA) 60 MG CAP.SA.24H ORAL DAILY Continue taking these medications: Cholecalciferol (Vitamin D3) 1,000 UNIT TABLET 1 Tablet ORAL DAILY Metformin HCl (Metformin HCl) 1,000 MG TABLET 1 Tablet ORAL TWICE DAILY Doxazosin Mesylate (Cardura) 4 MG TABLET 1 Tablet ORAL DAILY Trazodone HCl (Trazodone HCl) 100 MG TABLET 1 Tablet ORAL Every night Cyanocobalamin (Vitamin B-12) (Vitamin B-12) 1,000 MCG TAB.SUBL 1 Tablet SUBLINGUAL DAILY Glipizide (Glipizide ER) 2.5 MG TAB.ER.24 1 Tablet ORAL DAILY Vit C/E/Zn/Coppr/Lutein/Zeaxan (Preservision Areds 2 Softgel) 250-200-40 CAPSULE 1 Tablet ORAL TWICE DAILY Ferrous Sulfate (Ferrous Sulfate) 325 MG (65 MG IRON) TABLET 1 Tablet ORAL DAILY Copies To: KAYLA VAZQUEZ,TEREZA; STEVE VAZQUEZ,BOLIVAR Zuniga; VALERIE VAZQUEZ,STELLA Helm; АННА VAZQUEZ,KRYSTLE Doyle
[2017-03-08 08:30] LABS: ABSOLUTE BASOPHIL COUNT 0 /CUMM (0.0-0.2); ABSOLUTE EOSINOPHIL COUNT 0.2 /CUMM (0.0-0.7); ABSOLUTE GRANULOCYTE CT 3.6 /CUMM (1.4-6.5); ABSOLUTE LYMPH COUNT 0.7 /CUMM (1.2-3.4); ABSOLUTE MONOCYTE COUNT 0.6 /CUMM (0.10-0.60); BASOPHIL % 0.4 % (0.0-2.0); EOSINOPHIL % 4.2 % (0-5); MEAN CORPUSCULAR HGB 31.2 PG (27.0-31.0); MEAN CORPUSCULAR HGB CONC 33.5 G/DL (33.0-37.0); MEAN CORPUSCULAR VOLUME 93.2 FL (80.0-94.0); MEAN PLATELET VOLUME 10.5 FL (7.4-10.4); PLATELET COUNT 73 /CUMM (130-400); RBC DISTRIBUTION WIDTH 16.8 % (11.5-14.5); RED BLOOD CELL CT 3.12 /CUMM (4.70-6.10); WHITE BLOOD CELL COUNT 5.1 /CUMM (4.8-10.8)
[2017-03-08 08:42] LABS: PT 14.5 SEC (9.4-12.5)
--- NOTE | 2017-03-08 08:51 | PN- Housestaff ---
See Addendum Subjective Follow-up For: Left pubic ramus fracture, right epicondylitis Subjective: No overnight events. He slept well. His pain with movement is improving, now 6/ 10. At rest, it is 0/10. His elbow is ok, hurts when he bangs it. Otherwise, no complaints or issues. Review of Systems Constitutional: Reports: no symptoms. EENTM: Reports: no symptoms. Cardiovascular: Reports: no symptoms. Respiratory: Reports: no symptoms. Gastrointestinal: Reports: no symptoms. Genitourinary: Reports: no symptoms. Musculoskeletal: Reports: see HPI. Skin: Reports: no symptoms. Neurological/Psychological: Reports: no symptoms. Hematologic/Endocrine: Reports: no symptoms. Immunologic/Allergic: Reports: no symptoms. Objective Last 24 Hrs of Vital Signs/I&O Vital Signs Date Time Temp Pulse Resp B/P B/P Pulse O2 O2 Flow FiO2 Mean Ox Delivery Rate 03/08 0734 97.8 66 20 154/66 96 03/07 2200 97.9 62 18 130/70 96 Room Air 03/07 1515 98.6 67 20 140/61 99 Room Air Intake & Output 03/08 1600 03/08 0800 03/08 0000 Intake Total 940 Output Total 250 Balance -250 940 Intake, IV 100 Intake, Oral 840 Number 1 Bowel Movements Output, Urine 250 Physical Exam General Appearance: Alert, Oriented X3, Cooperative, No Acute Distress Cardiovascular: Regular Rate, Normal S1, Normal S2 Lungs: Clear to Auscultation Abdomen: Normal Bowel Sounds, Soft, No Tenderness Extremities: Rigth eblow nontender to palpation and passive flexion/extension. Right hip not painful with limited exam (patient seated). Current Medications: Current Medications Sig/Sidra Start time Last Medication Dose Route Stop Time Status Admin Acetaminophen 500 MG Q6 03/07 1412 AC 03/08 IV 0630 Acetaminophen 650 MG Q6P PRN 03/065 DC PO Cholecalciferol 1,000 IU DAILY 03/07 1000 AC 03/07 PO 1012 Cyanocobalamin 1,000 MCG DAILY 03/07 1000 AC 03/07 PO 1012 Doxazosin Mesylate 4 MG QPM 03/06 2300 AC 03/07 PO 2119 Ferrous Sulfate 325 MG DAILY 03/06 2300 AC 03/07 PO 1012 Insulin Aspart 0 TIDAC 03/07 0800 AC 03/07 SC 1735 Multivitamins 1 TAB DAILY 03/07 1000 AC 03/07 PO 1012 Propranolol HCl 10 MG Q8 03/07 0600 DC 03/07 PO 0621 Tramadol HCl 25 MG Q6-PRN PRN 03/06 2115 AC PO Trazodone HCl 100 MG QPM 03/06 2200 AC 03/07 PO 2119 Last 24 Hrs of Lab/Herb Results Last 24 Hrs of Labs/Mics: Laboratory Tests 03/08/17 0645: PT Pending, INR Pending, CBC w Diff Pending, WBC Pending, RBC Pending, Hgb Pending, Hct Pending, MCV Pending, MCH Pending, RDW Pending, Plt Count Pending, MPV Pending, PUBS MCHC Pending Assessment/Plan Assessment: Mr. Feliz is a 82 YO M gentleman ex-smoker(1 PACK/D QUIT 40 Yrs back) PMH of diabetes mellitus with complication, peripheral neuropathy, alcoholic cirrhosis, portal hypertension with gastropathy, esophageal varices status post band ligation, essential tremors, cholelithiasis, thrombocytopenia(d/t portal hypertension), anxiety, depression, insomnia and inguinal hernia status post surgical repair presented to ED with complaint of inability to move and pain in left buttock for last 2 days. #Nondisplaced left pubic rami fracture status post mechanical fall. -Tylenol for mild pain standing and tramadol for severe pain. Avoiding opiates. -Orthopedic consult -PT consult #Elbow pain: X-ray shows no fracture. Incidental mild osteoarthritis, features suggestive of epicondylitis/tendinitis potentially. -Follow up orthopedics recommendations #Incidental finding: CT scan showed bladder stone. We'll recommend outpatient follow-up with urology. He is not having any urinary complaints at this time. -Outpatient follow-up with urology #thrombocytopenia/anemia secondary to cirrhosis: -Continue propranolol by mouth 10 mgXTID -Low-sodium diet -No HEPARIN -No NSAIDs -Continue vitamins #BPH Continue doxazosin Follow-up with PCP for bladder stone CODE STATUS: Full code, DVT PROPHYLAXIS: mechanical DVT prophylaxis Problem List: 1. Epicondylitis 2. Fracture of left inferior pubic ramus Pain Ratin Pain Location: no pain Pain Goal: Remain pain free Pain Plan: see a/p Tomorrow's Labs & Rationales: discharge
--- NOTE | 2017-03-08 12:43 | Patient Discharge Instructions ---
Discharge Instructions General Discharge Information You were seen/treated for: Fall and found to a have pubic fracture Watch for these problems: Worsening pain in the pelvis. Numbness or weakness in the legs. New incontinence of bowel/bladder Special Instructions: Continue to take all medications as directed. Continue with physical therapy at home. You were previously on propranolol which was discontinued for generalized weakness. Please follow up with your vendor analyst in the next 2 weeks for a repeat endoscopy We have provided you with a referral to see a urologist for a stoning and bladder. Please call the office of Dr. Up in the next 1 week to set up a follow-up appointment. Diet Recommended Diet: Diabetic Activity Activity Self Limited: Yes Other activity limits: Rolling walker Acute Coronary Syndrome Inclusion Criteria At DC or during hospital stay patient has or had the following: ACS DIAGNOSIS No Discharge Core Measures Meds if any: Prescribed or Continued at Discharge Meds if any: NOT Prescribed or Continued at Discharge Congestive Heart Failure Inclusion Criteria At DC or during hospital stay patient has or had the following: CHF DIAGNOSIS No Discharge Core Measures Meds if any: Prescribed or Continued at Discharge Meds if any: NOT Prescribed or Continued at Discharge Cerebrovascular accident Inclusion Criteria At DC or during hospital stay patient has or had the following: CVA/TIA Diagnosis No Discharge Core Measures Meds if any: Prescribed or Continued at Discharge Meds if any: NOT Prescribed or Continued at Discharge Venous thromboembolism Inclusion Criteria VTE Diagnosis No VTE Type NONE VTE Confirmed by (Test) NONE Discharge Core Measures - Per Current guidelines, there needs to be overlap - treatment for the first 5 days of Warfarin therapy. - If discharged on Warfarin prior to 5 days of - overlap therapy, the patient will need to be - assessed for post discharge needs including - *Post discharge parental anticoagulation - *Warfarin and/or parental anticoagulation education - *Follow up date to check INR post discharge At least 5 days overlap therapy as Inpatient No Meds if any: Prescribed or Continued at Discharge Note: Overlap Therapy is Warfarin and Anticoagulant Meds if any: NOT Prescribed or Continued at Discharge
== END 2017-03-08 15:30 | disposition home health service (06) | DRG 536 ==
LOC: ERH 11:25 → 2NB 18:10 → ERHI 18:10 → ENRESERV 21:37 → CANRESERV 21:37 → ENTRNSPT 22:11 → ENRESERV 22:16 → 2NB 22:22 → CMPTRNSPT 22:29 → 2NB 03-08 08:41 → ENPENDDIS 03-08 14:03 → 2NB 03-08 15:30
PROVIDERS: Emergency Medicine; Internal Medicine; Student in an Organized Health Care Education/Training Program; ADMIT Internal Medicine
DX: S32.592A Other specified fracture of left pubis, initial encounter for closed fracture (principal); K76.6 Portal hypertension; I85.10 Secondary esophageal varices without bleeding; E11.42 Type 2 diabetes mellitus with diabetic polyneuropathy; D69.59 Other secondary thrombocytopenia; K70.30 Alcoholic cirrhosis of liver without ascites; D63.8 Anemia in other chronic diseases classified elsewhere; W18.30XA Fall on same level, unspecified, initial encounter; Y92.003 Bedroom of unspecified non-institutional (private) residence as the place of occurrence of the external cause; K31.89 Other diseases of stomach and duodenum; N40.0 Benign prostatic hyperplasia without lower urinary tract symptoms; N21.0 Calculus in bladder; M77.11 Lateral epicondylitis, right elbow; G25.0 Essential tremor; M77.01 Medial epicondylitis, right elbow; K57.90 Diverticulosis of intestine, part unspecified, without perforation or abscess without bleeding; Z87.891 Personal history of nicotine dependence; Z79.84 Long term (current) use of oral hypoglycemic drugs
CPT/HCPCS: 2NBP; 36415; 73080-RT; 73502-LT; 82436; 90714; 93005; 93010; 97110-GO; 97116-GO; 97161-GP; 97530-GO; J0131

== ENCOUNTER 2017-09-10 11:57 | Emergency (ER) | payer OTHER, MEDICARE ==
[~2017-09-10] VITALS: Ht 170.2 cm; Wt 64.4 kg
[~2017-09-10 11:57] MED LIST changes: +FERROUS SULFAT325 M3 PO
[2017-09-10 14:05] LABS: ABSOLUTE BASOPHIL COUNT 0 /CUMM (0.0-0.2); ABSOLUTE EOSINOPHIL COUNT 0.2 /CUMM (0.0-0.7); ABSOLUTE GRANULOCYTE CT 8.3 /CUMM (1.4-6.5); ABSOLUTE LYMPH COUNT 0.8 /CUMM (1.2-3.4); ABSOLUTE MONOCYTE COUNT 0.8 /CUMM (0.10-0.60); BASOPHIL % 0.1 % (0.0-2.0); EOSINOPHIL % 1.6 % (0-5); HEMATOCRIT 28.6 % (42-52); MEAN CORPUSCULAR HGB 28.2 PG (27.0-31.0); MEAN CORPUSCULAR HGB CONC 32.9 G/DL (33.0-37.0); MEAN CORPUSCULAR VOLUME 85.8 FL (80.0-94.0); MEAN PLATELET VOLUME 9.5 FL (7.4-10.4); PLATELET COUNT 190 /CUMM (130-400); RBC DISTRIBUTION WIDTH 15.5 % (11.5-14.5); RED BLOOD CELL CT 3.33 /CUMM (4.70-6.10); WHITE BLOOD CELL COUNT 9.9 /CUMM (4.8-10.8)
--- NOTE | 2017-09-10 14:28 | ED GI/GU/ABDOMINAL COMPLAINT ---
History of Present Illness General Chief Complaint: General Adult Stated Complaint: SENT BY DR Tere REBOLLEDO FOR EVAL FLUID IN ABD Source: patient, family Exam Limitations: no limitations Allergies Coded Allergies: NO KNOWN ALLERGIES (06/13/15) Reconcile Medications Cholecalciferol (Vitamin D3) 1,000 UNIT TABLET 1 TAB PO DAILY VITAMIN SUPPORT (Reported) Doxazosin Mesylate (Cardura) 4 MG TABLET 1 TAB PO DAILY PROSTATE (Reported) Ferrous Sulfate 325 MG (65 MG IRON) TABLET 1 TAB PO DAILY ANEMIA (Reported) Glipizide (Glipizide ER) 2.5 MG TAB.ER.24 1 TAB PO DAILY DM II (Reported) Metformin HCl 1,000 MG TABLET 1 TAB PO BID DIABETES (Reported) Trazodone HCl 100 MG TABLET 1 TAB PO QPM SLEEP (Reported) Vit C/E/Zn/Coppr/Lutein/Zeaxan (Preservision Areds 2 Softgel) 250-200-40 CAPSULE 1 TAB PO BID EYE (Reported) Triage Note: PT TO ED FOR "PARACENTESIS" PT REPORTING HE CALLED DR. MALAVE'S OFFICE WHO INSTRUCTED HIM TO COME TO ED FOR ABOVE, PT'S VERY ADAMENT "A DOCTOR NEEDS TO DO IT NOT A PA" PT DENIES ALL OTHER COMPLAINTS STATING "I JUST CAME TO THE ED TO GET THIS FLUID DRAINED." Triage Nurses Notes Reviewed? yes Onset: Gradual Duration: week(s): (2-3), constant, continues in ED, getting worse Timing: single episode today Quality/Severity: dullness, fullness Location: generalized abdomen Radiation: no radiation Activities at Onset: none Prior Abdominal Problems: similar symptoms Past Sexual History: Unobtainable at this time No Modifying Factors: none Associated Symptoms: abdominal distention HPI: 82-year-old male past medical history of cirrhosis, diabetes, hypertension presents for evaluation of fluid in his abdomen. Patient states that over the past several months he has had gradually increasing fluid in his abdomen. He states it is difficult from the button his pants and he feels distended and full all the time. He had a paracentesis done in April 2017 reveals that he needs another one. He states that he is call Dr. Malave his GI doctors office he was instructed to come in for evaluation for possible paracentesis. He denies any abdominal pain, fever, chest pain, shortness of breath, back pain, urinary symptoms or any other associated symptoms. (Juan Alberto Díaz) Vital Signs & Intake/Output Vital Signs & Intake/Output Vital Signs Date Time Temp Pulse Resp B/P B/P Pulse O2 O2 Flow FiO2 Mean Ox Delivery Rate 09/10 1613 97.6 57 18 109/50 99 Room Air ED Intake and Output 09/11 0000 09/10 1200 Intake Total Output Total Balance Patient 142 lb Weight Weight Reported by Patient Measurement Method (Tehodora VAZQUEZ,James Boss) Past History Travel History Traveled to [place] past 21 day No Medical History Any Pertinent Medical History? see below for history Neurological: peripheral neuropathy, essential tremor EENT: cataracts, hearing loss Cardiovascular: NONE Respiratory: NONE Gastrointestinal: Esophageal varices, band ligated Junctional varices Portal hypertensive gastropathy Hepatic: cholelithiasis, cirrhosis Renal: NONE Musculoskeletal: osteoarthritis Psychiatric: alcohol dependence, insomnia Endocrine: diabetes Blood Disorders: thrombocytopenia (cirrhotic) Cancer(s): NONE CUSTOMER TRAINER/Reproductive: NONE History of MRSA: No History of VRE: No History of CDIFF: No Tetanus Vaccine: 03/06/17 Surgical History Surgical History: UPPER ENDOSCOPY WITH VARICEAL BANDING. tracheostomy as . INGUINAL HERNIA REPAIRED Psychosocial History Who do you live with Spouse Services at Home None What is your primary language [place] Tobacco Use: Never used ETOH Use: denies use Illicit Drug Use: denies illicit drug use Family History Family History, If Any: maternal aunt, ; Cause: Alcoholic cirrhosis. Hx Contributory? No (Juan Alberto Díaz) Review of Systems Review of Systems Constitutional: Reports: no symptoms. EENTM: Reports: no symptoms. Respiratory: Reports: no symptoms. Cardiovascular: Reports: no symptoms. GI: Reports: see HPI (distension ), bloating. Genitourinary: Reports: no symptoms. Musculoskeletal: Reports: no symptoms. Skin: Reports: no symptoms. Neurological/Psychological: Reports: no symptoms. Hematologic/Endocrine: Reports: no symptoms. Immunologic/Allergic: Reports: no symptoms. All Other Systems: Reviewed and Negative (Juan Alberto Díaz) Physical Exam Physical Exam General Appearance: well developed/nourished, no apparent distress, alert, awake Head: atraumatic, normal appearance Eyes: Bilateral: normal appearance, PERRL, EOMI. Ears, Nose, Throat, Mouth: hearing grossly normal, moist mucous membrane Neck: normal inspection, supple, full range of motion, no JVD Respiratory: normal breath sounds, chest non-tender, no respiratory distress, lungs clear Cardiovascular: regular rate/rhythm, normal peripheral pulses Peripheral Pulses: 2+ radial (R), 2+ radial (L) Gastrointestinal: normal bowel sounds, soft, non-tender, distention, ascities. mild distension no pain to palpation. no erythema Back: normal inspection, normal range of motion, no vertebral tenderness Extremities: normal range of motion Neurologic/Psych: no motor/sensory deficits, awake, alert, oriented x 3 Skin: intact, normal color, warm/dry Core Measures ACS in differential dx? No Sepsis Present: No Sepsis Focused Exam Completed? No (Wesley GUEVARA,Juan Alberto) Progress Differential Diagnosis: AAA, appendicitis, biliary colic, bowel obstruction, cholecystitis, diverticulitis, SBO, ureterolithiasis, urinary retention, UTI/ pyelo Diagnostic Imaging: Viewed by Me: CT Scan. Discussed w/RAD: CT Scan. Radiology Impression: PATIENT: JAS MYERS PRESENT AGE: 82 PATIENT ACCOUNT NO: [id number] : 36 LOCATION: [facility] ORDERING PHYSICIAN: Juan Alberto GUEVARA SERVICE DATE: 09/10/17 EXAM TYPE: CAT - CT ABD & PELVIS W IV CONTRAST EXAMINATION: CT ABDOMEN AND PELVIS WITH CONTRAST CLINICAL INFORMATION: Abdominal pain and distention. COMPARISON: 04/29/2017. TECHNIQUE: Contiguous axial thin section helical images of the abdomen and pelvis were performed following the administration of 100 mL of intravenous Omnipaque 300. The data set was reformatted in the coronal and sagittal planes and reviewed on an independent workstation. DLP: 345 mGy-cm. FINDINGS: The visualized lung bases are clear. The visualized portions of the heart are unremarkable. Distal esophageal varices are demonstrable. There are diffuse upper abdominal varices. The liver is of decreased size and mildly heterogeneous attenuation without intrahepatic biliary ductal dilation. Within the right lobe, there is a stable 10 mm low-attenuation focus. The gallbladder is distended. There is a calculus present dependently within the gallbladder lumen. There is pericholecystic fluid , though there is also a moderate amount of additional free fluid within the upper abdomen. The pancreas and adrenal glands are unremarkable. The spleen is of normal contour and attenuation. It is enlarged measuring 13.7 cm. Both kidneys are of normal size and attenuation without hydronephrosis or nephrolithiasis. Following the administration of IV contrast, prompt symmetric nephrograms are displayed. There is no abdominal free fluid. There are numerous retroperitoneal lymph nodes. The largest is at the level of the left renal hilum measuring approximately 1.9 cm in short axis on image 309/[id number]. There is nonspecific mesenteric fat stranding. Normal unopacified loops of small and large bowel are identified. There is a large amount of pelvic free fluid. The urinary bladder is partially filled. There is an 11 mm calculus within the bladder. There is neither pelvic nor inguinal lymphadenopathy. Bone windows: Neither sclerotic nor lytic bone lesions are identified. There is multilevel disc height loss throughout the lumbar spine. IMPRESSION: Moderate amount of abdominal and pelvic free fluid. Manifestations of cirrhosis and upper abdominal and lower esophageal varices. Splenomegaly. Cholelithiasis without evidence of cholecystitis. Scattered retroperitoneal lymph nodes. The largest measures 19 mm in short axis. DICTATED BY: Jas Hameed MD DATE/TIME DICTATED:09/10/171733 CHIEF OPERATING ENGINEER:JESUS DATE/TIME TRANSCRIBED:09/10/171733 CONFIDENTIAL, DO NOT COPY WITHOUT APPROPRIATE AUTHORIZATION. <Electronically signed in Other Vendor System> , PATIENT: JAS MYERS PRESENT AGE: 82 PATIENT ACCOUNT NO: [id number] : LOCATION: [facility] ORDERING PHYSICIAN: Juan Alberto GUEVARA SERVICE DATE: EXAM TYPE: US - US-LIMITED ABDOMEN EXAMINATION: US ABDOMEN LIMITED CLINICAL INFORMATION: Ascites, assess for paracentesis. COMPARISON: Paracentesis performed 05/13/2017. TECHNIQUE: Real-time images of all 4 quadrants of the abdomen were performed. FINDINGS: Real-time imaging of all 4 quadrants demonstrates trace amount of ascites in the right lower quadrant. No safe window for paracentesis was identified. IMPRESSION: Trace abdominal ascites. No safe window for paracentesis. Results were discussed with Juan Alberto Olson at the time of imaging. DICTATED BY: Bay Iniguez MD DATE/TIME DICTATED:09/10/171633 CHIEF OPERATING ENGINEER:MAURI DATE/TIME TRANSCRIBED:09/10/171633 CONFIDENTIAL, DO NOT COPY WITHOUT APPROPRIATE AUTHORIZATION. Initial ED EKG: none (Wesley GUEVARA,Juan Alberto) Plan of Care: Laboratory Tests 09/10/17 1430: Fluid WBC Cancelled, Fld Total RBCs Counted Cancelled 09/10/17 1430: Fluid Albumin Cancelled 09/10/17 1407: Urine Color YEL, Urine Clarity CLEAR, Urine pH 6.0, Ur Specific [place] 1.020, Urine Protein NEG, Urine Ketones NEG, Urine Nitrite NEG, Urine Bilirubin NEG, Urine Urobilinogen 0.2, Ur Leukocyte Esterase NEG, Ur Microscopic EXAM NOT REQUIRED, Urine Hemoglobin NEG, Urine Glucose NEG Microbiology 09/10 1430 BODY FLUID: Body Fluid Culture - CAN Cancelled: Cancelled via OE: Per MD Decision 09/10 1430 BODY FLUID: Gram Stain - CAN Cancelled: Cancelled via OE: Per MD Decision Patient seen and evaluated. He has history of liver cirrhosis and ascites. He' s had a paracentesis before. Patient states he feels like he needs another one. He was not actually evaluated by Dr. Malave he just call the office. Will check basic blood work and order an abdominal US. pt went to US and radiologist called saying that there is not enough fluid in the abdomen to make para worth the risk. discussed with pt. will check a ct of neda abdomen. ct scan does not show any acute changes. blood work shows a mildly elevated potassium. rx given for a dose of art-excelate otherwise nho acute changes. reviewed results with pt. advised him to follow up with [facility]. discussed return precautions. case discussed with dr nova. he agrees. (Juan Alberto Díaz) (Theodora VAZQUEZ,James Boss) Departure Departure Disposition: HOME OR SELF CARE Condition: Stable Clinical Impression Primary Impression: Ascites Qualifiers: Ascites type: other type Qualified Code: R18.8 - Other ascites Referrals: Tashi VAZQUEZ,Anurag Zuniga (PCP/Family) Ananda VAZQUEZ,Nigel Doyle Additional Instructions: Continue all medications as directed. Follow-up with Dr. Malave this coming week. Monitor symptoms return with fever, abdominal pain, chest pain, shortness of breath or any other concerns. Departure Forms: Customer Survey General Discharge Information (Juan Alberto Díaz) PA/ADMISSIONS CLINICIAN Co-Sign Statement Statement: ED Attending supervision documentation- [X] I saw and evaluated the patient. I have also reviewed all the pertinent lab results and diagnostic results. I agree with the findings and the plan of care as documented in the PA's/ADMISSIONS CLINICIAN's documentation. Patient presents for evaluation of worsening ascites. Physical examination reveals firmly distended abdomen. [] I have reviewed the ED Record and agree with the PA's/ADMISSIONS CLINICIAN's documentation. [] Additions or exceptions (if any) to the PAs/ADMISSIONS CLINICIAN's note and plan are summarized below: [] (Theodora VAZQUEZ,James Boss) as documented in the PA's/ADMISSIONS CLINICIAN's documentation. Patient presents for evaluation of worsening ascites. Physical examination reveals firmly distended abdomen. [] I have reviewed the ED Record and agree with the PA's/ADMISSIONS CLINICIAN's documentation. [] Additions or exceptions (if any) to the PAs/ADMISSIONS CLINICIAN's note and plan are summarized below: [] (Theodora VAZQUEZ,James Boss)
[2017-09-10 16:13] VITALS: BP 109/50
--- NOTE | 2017-09-10 16:47 | ULTRASOUND REPORT ---
EXAMINATION: US ABDOMEN LIMITED CLINICAL INFORMATION: Ascites, assess for paracentesis. COMPARISON: Paracentesis performed 05/13/2017. TECHNIQUE: Real-time images of all 4 quadrants of the abdomen were performed. FINDINGS: Real-time imaging of all 4 quadrants demonstrates trace amount of ascites in the right lower quadrant. No safe window for paracentesis was identified. IMPRESSION: Trace abdominal ascites. No safe window for paracentesis. Results were discussed with Juan Alberto Olson at the time of imaging.
--- NOTE | 2017-09-10 17:43 | CT SCAN REPORT ---
EXAMINATION: CT ABDOMEN AND PELVIS WITH CONTRAST CLINICAL INFORMATION: Abdominal pain and distention. COMPARISON: 04/29/2017. TECHNIQUE: Contiguous axial thin section helical images of the abdomen and pelvis were performed following the administration of 100 mL of intravenous Omnipaque 300. The data set was reformatted in the coronal and sagittal planes and reviewed on an independent workstation. DLP: 345 mGy-cm. FINDINGS: The visualized lung bases are clear. The visualized portions of the heart are unremarkable. Distal esophageal varices are demonstrable. There are diffuse upper abdominal varices. The liver is of decreased size and mildly heterogeneous attenuation without intrahepatic biliary ductal dilation. Within the right lobe, there is a stable 10 mm low-attenuation focus. The gallbladder is distended. There is a calculus present dependently within the gallbladder lumen. There is pericholecystic fluid, though there is also a moderate amount of additional free fluid within the upper abdomen. The pancreas and adrenal glands are unremarkable. The spleen is of normal contour and attenuation. It is enlarged measuring 13.7 cm. Both kidneys are of normal size and attenuation without hydronephrosis or nephrolithiasis. Following the administration of IV contrast, prompt symmetric nephrograms are displayed. There is no abdominal free fluid. There are numerous retroperitoneal lymph nodes. The largest is at the level of the left renal hilum measuring approximately 1.9 cm in short axis on image 309/[id number]. There is nonspecific mesenteric fat stranding. Normal unopacified loops of small and large bowel are identified. There is a large amount of pelvic free fluid. The urinary bladder is partially filled. There is an 11 mm calculus within the bladder. There is neither pelvic nor inguinal lymphadenopathy. Bone windows: Neither sclerotic nor lytic bone lesions are identified. There is multilevel disc height loss throughout the lumbar spine. IMPRESSION: Moderate amount of abdominal and pelvic free fluid. Manifestations of cirrhosis and upper abdominal and lower esophageal varices. Splenomegaly. Cholelithiasis without evidence of cholecystitis. Scattered retroperitoneal lymph nodes. The largest measures 19 mm in short axis.
== END 2017-09-10 18:14 ==
LOC: ERH 11:57
PROVIDERS: Physician Assistant Medical
DX: K70.31 Alcoholic cirrhosis of liver with ascites (principal); E11.9 Type 2 diabetes mellitus without complications; D69.6 Thrombocytopenia, unspecified
CPT/HCPCS: 87075; 74177; 81003

== ENCOUNTER 2017-09-27 15:18 | Inpatient (IN) | payer OTHER, MEDICARE ==
[~2017-09-27] VITALS: Ht 170.2 cm; Wt 70.8 kg
[2017-09-27 17:40] LABS: ABSOLUTE BASOPHIL COUNT 0 /CUMM (0.0-0.2); ABSOLUTE EOSINOPHIL COUNT 0.1 /CUMM (0.0-0.7); ABSOLUTE LYMPH COUNT 0.6 /CUMM (1.2-3.4)
[2017-09-27 17:48] LABS: ABSOLUTE GRANULOCYTE CT 12.6 /CUMM (1.4-6.5); BASOPHIL % 0 % (0.0-2.0); EOSINOPHIL % 0.5 % (0-5); HEMATOCRIT 21.9 % (42-52); MEAN CORPUSCULAR HGB 28.5 PG (27.0-31.0); MEAN CORPUSCULAR HGB CONC 33.3 G/DL (33.0-37.0); MEAN CORPUSCULAR VOLUME 85.5 FL (80.0-94.0); MEAN PLATELET VOLUME 10.9 FL (7.4-10.4); PLATELET COUNT 116 /CUMM (130-400); RBC DISTRIBUTION WIDTH 16.9 % (11.5-14.5); RED BLOOD CELL CT 2.57 /CUMM (4.70-6.10); WHITE BLOOD CELL COUNT 14.2 /CUMM (4.8-10.8)
[2017-09-27 18:10] LABS: GRANULOCYTE % 88.2 % (42.2-75.2)
--- NOTE | 2017-09-27 18:17 | ED GENERAL ADULT ---
History of Present Illness General Chief Complaint: General Adult Stated Complaint: YOSELIN BELL FOR ?LOW BLOOD COUNT Source: patient, family, old records Exam Limitations: no limitations Vital Signs & Intake/Output Vital Signs & Intake/Output Vital Signs Date Time Temp Pulse Resp B/P B/P Pulse O2 O2 Flow FiO2 Mean Ox Delivery Rate 09/30 1017 97.8 77 19 114/54 09/30 0645 97.8 77 19 114/54 98 Room Air ED Intake and Output 09/30 0000 09/29 1200 Intake Total 720 240 Output Total 400 Balance 320 240 Intake, Oral 720 240 Output, Urine 400 Patient 156 lb Weight Allergies Coded Allergies: NO KNOWN ALLERGIES (06/13/15) Reconcile Medications B12/Levomefolate Calcium/B-6 (Folbic Rf Tablet) 2 MG-1.13 MG-25 MG TABLET 1 TAB PO DAILY Vitamin (Reported) Cholecalciferol (Vitamin D3) 1,000 UNIT TABLET 1 TAB PO DAILY VITAMIN SUPPORT (Reported) Ferrous Sulfate 325 MG (65 MG IRON) TABLET 1 TAB PO DAILY ANEMIA (Reported) Glipizide (Glipizide ER) 2.5 MG TAB.ER.24 1 TAB PO DAILY DM II (Reported) Lactulose 10 GRAM/15 ML SOLUTION 15 ML PO DAILY CONSTIPATION (Reported) Metformin HCl 1,000 MG TABLET 1 TAB PO BID DIABETES (Reported) Propranolol HCl (Propranolol HCl ER) 60 MG CAP.SA.24H 1 CAP PO DAILY Cirrhosis (Reported) Rifaximin (Xifaxan) 550 MG TABLET 1 TAB PO BID Liver (Reported) Trazodone HCl 100 MG TABLET 1 TAB PO QPM SLEEP (Reported) Vit C/E/Zn/Coppr/Lutein/Zeaxan (Preservision Areds 2 Softgel) 250-200-40 CAPSULE 1 TAB PO BID EYE (Reported) Triage Note: RECEIVED 82 YO MALE WITH HX OF ANEMIA AND CIRRHOSIS, SENT BY DR BELL FOR LOWE BLOOD COUNT. PT REPORTS WEAKNESS LATELY AND MULTIPLE FALLS RECENTLY. PT FELL YESTERDAY AND CALLED 911, WAS UNABLE TO GET OFF THE FLOOR. Triage Nurses Notes Reviewed? yes HPI: Patient presents for evaluation of an anemia. Patient states that he saw Dr. Neida carpenter earlier today at the request of his GI specialist the possibility of a low blood count. He was then instructed to go to the emergency department based on the blood counts today. He has been experiencing fatigue dyspnea and generalized weakness. His states that he has been sleeping almost constantly and has fallen repeatedly recently. He denies any clinical focus of bleeding and denies melena. Past History Travel History Traveled to [place] past 21 day No Medical History Any Pertinent Medical History? 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 tracheostomy as infant. INGUINAL HERNIA REPAIRED Psychosocial History Who do you live with Spouse Services at Home None What is your primary language Vietnamese Tobacco Use: Never used Family History Family History, If Any: maternal aunt, ; Cause: Alcoholic cirrhosis. Hx Contributory? No Review of Systems Review of Systems Constitutional: Reports: no symptoms. EENTM: Reports: no symptoms. Respiratory: Reports: no symptoms. Cardiovascular: Reports: no symptoms. GI: Reports: no symptoms. Genitourinary: Reports: no symptoms. Musculoskeletal: Reports: no symptoms. Skin: Reports: no symptoms. Neurological/Psychological: Reports: no symptoms. Hematologic/Endocrine: Reports: no symptoms. Immunologic/Allergic: Reports: no symptoms. All Other Systems: Reviewed and Negative Physical Exam Physical Exam General Appearance: SEE BELOW Comments: Gen.: Well-nourished, well-developed, no acute respiratory distress. Head: Normocephalic, atraumatic. Eyes: Mild icterus Ears: Normal inspection bilaterally Nose: Normal inspection Throat/mouth : Moist mucosa, no oropharyngeal soft tissue swelling erythema or exudates Neck: Supple, full range of motion, no goiter, no JVD Heart: Regular rate and rhythm, systolic murmur greatest over the left sternal border Lungs: Clear to auscultation bilaterally with normal air entry Chest: Nontender Back: Normal range of motion Abdomen: Soft, nontender, mildly distended and tympanitic, normal bowel sounds Extremities: Normal range of motion grossly, equal radial pulses, no cyanosis clubbing or edema Neurologic: Cranial nerves grossly intact, speech is clear Skin: warm and dry Psychiatric: Calm, cooperative, no apparent delusions or hallucinations Core Measures ACS in differential dx? No CVA/TIA Diagnosis: No Sepsis Present: No Sepsis Focused Exam Completed? No Progress Differential Diagnoses I considered the following diagnoses in my evaluation of the patient: Plan of Care: Orders Procedure Date/time Status CBC WITHOUT DIFFERENTIAL 09/30 0656 Complete Evaluate Swallowing 09/30 UNK Complete Therapeutic Exercise 09/30 UNK Complete Gait Training 09/30 UNK Complete Discharge Patient 09/30 UNK Active Laboratory Tests 09/30/17 0710: CBC w Diff NO MAN DIFF REQ, RBC 3.23 L, MCV 86.3, MCH 28.2, MCHC 32.7 L, RDW 17.5 H, MPV 9.7, Gran % 74.5, Lymphocytes % 10.2 L, Monocytes % 11.4 H, Eosinophils % 3.4, Basophils % 0.5, Absolute Granulocytes 6.3, Absolute Lymphocytes 0.9 L, Absolute Monocytes 1.0 H, Absolute Eosinophils 0.3, Absolute Basophils 0 Initial ED EKG: none Comments: d/w dr keller. no clear onc dx. hypersplenism with low counts in 2008. Other than the patient's current symptoms there seems to be no reason for an urgent blood transfusion. Patient does have hyponatremia and this could explain his symptoms. Departure Departure Disposition: STILL A PATIENT Condition: Stable Clinical Impression Primary Impression: Hyponatremia Secondary Impressions: Anemia Qualifiers: Anemia type: unspecified type Qualified Code: D64.9 - Anemia, unspecified Cirrhosis Qualifiers: Hepatic cirrhosis type: unspecified hepatic cirrhosis Ascites presence: without ascites Qualified Code: K74.60 - Unspecified cirrhosis of liver Occult GI bleeding Thrombocytopenia Referrals: Tashi VAZQUEZ,Anurag Zuniga (PCP/Family) Departure Forms: Customer Survey General Discharge Information Admission Note Spoke With: Devin Hernandez MDaustyn Documentation of Exam: Documentation of any treatments & extenuating circumstances including Concerns Regarding Discharge (functional status, medication knowledge or non-compliance, living conditions, etc.) that warrant an admission rather than observation: Patient presents for worsening fatigue shortness of breath and generalized weakness somnolence and falling. His emergency department evaluation reveals hyponatremia, anemia, thrombocytopenia and heme positive stool. Given the patient's overall debilitated state both as a result of his chronic illnesses and his recent fatigue and weakness and falling with hypersomnolence I feel he is a poor candidate for outpatient management and would likely return in worse clinical condition including injury secondary to falling. He had great difficulty in even repositioning himself on the stretcher due to weakness and I feel he would be incapable of maintaining ADLs under the circumstances. I feel he now requires hospitalization for correction of his hyponatremia and monitoring of his hematocrit and hemoglobin for worsening. In addition, he should be monitored clinically for onset of melena and GI consultation considered for the possibility of an occult GI bleed (patient may require an endoscopy). In addition, physical therapy consultation should be considered given his history of lower extremity peripheral neuropathy and worsening trouble ambulating with frequent falls. If patient's hyponatremia does not respond to a normal saline infusion, nephrology consultation should be considered. Given the above I feel this patient will require a multiple day hospitalization and could potentially require short-term rehabilitation. Critical Care Note Critical Care Note Critical Care Time: 30-74 min ED Attending Observation Initial Observation Note: I have seen and personally examined PEDRO MYERS on 09/30/17 at 2339. I agree with the current emergency department documentation. The disposition (admission or discharge) is uncertain at this time, he needs a period of observation for the following reason(s): The ED Nurse caring for this patient has been personally informed as to what the patient is being observed for. Observation Re-Evaluation: I have reevaluated PEDRO MYERS on 09/30/17 at 2339. The physical findings that support the continued need to observe this patient include . Observation Discharge: I have reevaluated PEDRO MYERS on 09/30/17 at 2339. The patient is: (): Stable for discharge (): To be admitted to Nursing Floor (): To be placed in Observation on Nursing Floor (): For transfer to other facility The patient was being observed for As a result of that observation, I have determined .
[2017-09-27] MEDS ORDERED: LASIX40 M1 PO (19:57)
[2017-09-27] MEDS ORDERED: FOLBIC RF TABL1 EACH PO (19:57)
[2017-09-27] MEDS ORDERED: XIFAXAN550 M1 PO (19:58)
[2017-09-27] MEDS ORDERED: FINASTERIDE5 M1 PO (19:59)
[2017-09-27] MEDS ORDERED: ALDACTONE100 M1 PO (20:00)
[2017-09-27 20:36] LABS: PT 13.3 SEC (9.4-12.5)
--- NOTE | 2017-09-27 20:46 | History & Physical ---
Singh VAZQUEZ,[facility] 09/27/172044: General Information and HPI MD Statement: I have seen and personally examined PEDOR FELIZ and documented this H&P. The patient is a 82 year old M who presented with a patient stated chief complaint of [sent in by Dr. Willis for low hemoglobin]. History of Present Illness: 82-year-old male with past history of alcoholic cirrhosis, portal hypertension with gastropathy, esophageal varices status post band ligation,diabetes mellitus with peripheral neuropathy, essential tremors, cholelithiasis, thrombocytopenia and anemia, anxiety, depression, insomnia and inguinal hernia status post surgical repair sent to the emergency department from Dr. Willis's office for low hemoglobin. The patient states that he had endoscopy by Dr. Malave 2 weeks ago. The patient states that there were varices found however there was no reason to band ligate them. The patient's were talked with over the phone is unsure whether there are varices are not however she did agree that there was going to be any intervention to be done. The patient was referred to Dr. Willis by Dr. Malave and was seen by Dr. Willis first time today. At this office visit he was found to be anemic and was instructed to go to the emergency department for transfusion. The patient states that he had a colonoscopy 5 years ago and states that the colonoscopy was normal. He also states that he had a paracentesis done in August however the records show that a paracentesis was done in April 2017. The patient states that he does not have any blood in his stool or melena however the guaiac was positive. He does endorse weakness, fatigue, sleepiness, lightheadedness, nausea, decreased appetite, nonproductive cough, and intermittent confusion. He also states she's been having a sore throat and lower extremity edema. He also endorses subprapubic abd pain starting in the L and radiating to the R. He denies any fevers, chills, sick contacts, chest pain, shortness breath, changes in urination, blurry vision, or dizziness. Patient states that he last used alcohol 2 years ago and stopped smoking in 1964. 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 tracheostomy as . INGUINAL HERNIA REPAIRED Past Family/Social History Family History Relations & Conditions if any maternal aunt, ; Cause: Alcoholic cirrhosis. Psychosocial History Who Do You Live With? spouse Services at Home: None Primary Language: Slovenian Living Will? full code Power of Eddy Current Inspector/HCP? unknown Functional Ability ADLs Independent: dressing, eating, toileting, bathing. Ambulation: independent IADLs Independent: shopping, housework, finances, food prep, telephone, transportation , medication admin. Review of Systems Review of Systems Constitutional: Reports: see HPI, malaise, weakness. EENTM: Reports: see HPI, throat pain. Cardiovascular: Reports: edema. GI: Reports: see HPI, nausea. Genitourinary: Reports: see HPI (suprapubic abd pain). Neurological/Psychological: Reports: see HPI (lightheadedness,), confusion. Exam & Diagnostic Data Last 24 Hrs of Vital Signs/I&O Vital Signs Date Time Temp Pulse Resp B/P B/P Pulse O2 O2 Flow FiO2 Mean Ox Delivery Rate 09/28 0130 56 96/40 09/28 0005 98.8 60 18 88/46 99 Room Air 09/27 2305 98.2 62 18 111/54 100 Room Air 09/27 2121 98.6 61 18 98/52 100 Room Air 09/27 2106 97.8 60 20 96/51 100 Room Air 09/27 2019 97.2 58 18 110/51 100 Room Air 09/27 1820 98.0 57 20 94/46 99 Room Air 09/27 1637 97.5 60 20 105/61 96 Room Air Intake & Output 09/28 0800 09/28 0000 09/27 1600 Intake Total 600 Output Total 200 Balance 400 Intake, IV 600 Output, Urine 200 Patient 156 lb Weight Weight Reported by Patient Measurement Method Physical Exam General Appearance Alert, Oriented X3, Cooperative, No Acute Distress Skin hand jaudice, R loving bruising HEENT NO scleral icterus Cardiovascular ?systolic murmur Lungs Clear to Auscultation, Normal Air Movement Abdomen Normal Bowel Sounds, Soft, No Tenderness, distended abd Extremities 1+ LE edema b/l, no flapping tremor Last 24 Hrs of Labs/Herb: Laboratory Tests 09/28/17 0621: Anion Gap 12, Estimated GFR > 60, BUN/Creatinine Ratio 65.7 H 09/28/17 0621: Alpha Fetoprotein Pending, CBC w Diff NO MAN DIFF REQ, RBC 2.79 L, MCV 86.0, MCH 29.0, MCHC 33.8, RDW 17.8 H, MPV 10.9 H, Gran % 84.7 H, Lymphocytes % 4.6 L, Monocytes % 9.7 H, Eosinophils % 1.0, Basophils % 0, Absolute Granulocytes 9.8 H, Absolute Lymphocytes 0.5 L, Absolute Monocytes 1.1 H, Absolute Eosinophils 0.1, Absolute Basophils 0 09/28/17 0205: Lactic Acid 1.6 09/28/17 0025: Anion Gap 10, Estimated GFR > 60, BUN/Creatinine Ratio 67.1 H, Ammonia 25 09/27/17 1846: Urine Color YEL, Urine Clarity CLEAR, Urine pH 6.0, Ur Specific [place] 1.015, Urine Protein NEG, Urine Ketones NEG, Urine Nitrite NEG, Urine Bilirubin NEG, Urine Urobilinogen 0.2, Ur Leukocyte Esterase NEG, Ur Microscopic EXAM NOT REQUIRED, Urine Hemoglobin NEG, Urine Glucose NEG 09/27/17 1713: Anion Gap 14, Estimated GFR > 60, BUN/Creatinine Ratio 67.5 H, Glucose 95, Lactic Acid 4.8 H, Calcium 9.6, Iron 13 L, TIBC 317, Ferritin 44.0, Total Bilirubin 0.6, AST 44, ALT 45, Alkaline Phosphatase 97, Lactate Dehydrogenase 409, Troponin I < 0.01, Total Protein 6.7, Albumin 2.8 L, Globulin 3.9, Albumin /Globulin Ratio 0.7 L, PT 13.3 H, INR 1.27 H, CBC w Diff NO MAN DIFF REQ, RBC 2.57 L, MCV 85.5, MCH 28.5, MCHC 33.3, RDW 16.9 H, MPV 10.9 H, Gran % 88.2 H , Lymphocytes % 4.2 L, Monocytes % 7.1, Eosinophils % 0.5, Basophils % 0, Absolute Granulocytes 12.6 H, Absolute Lymphocytes 0.6 L, Absolute Monocytes 1.0 H, Absolute Eosinophils 0.1, Absolute Basophils 0, Retic Count 2.74 H Microbiology 09/28 0145 NASOPHARYN: Influenza Virus A & B Rapid Smear - COMP Assessment/Plan Assessment: A: 82 yo M with a pmhx of diabetes mellitus with peripheral neuropathy, alcoholic cirrhosis, portal hypertension with gastropathy, esophageal varices status post band ligation, essential tremors, cholelithiasis, thrombocytopenia and anemia, anxiety, depression, insomnia and inguinal hernia status post surgical repair presenting for low h/h found at Dr. Lovett's office. P: #symptomatic acute blood loss anemia most likely due to GI bleed Pt reports having varices during his endoscopy 2 weeks ago Presumed upper GI bleeding BUN elevated 54 H/H 7.3/21.9 iron 13 Platelet 116 reticulocyte count 2.74 Vitals: T-98.0, HR 57, RR 20, BP 94/46, 96-99% O2 sat -hgn goal >7 -Repeat CBC after transfusion (1 unit so far) -orthos tats -GI and onc consult -PT consult for weakness -cont Ferrous sulfate -*currently holding IVF for concerns of third spacing -*be cautious with over transfusing as pt has varices #Hyponatremia Na 129 -> 131 Most likely due to poor po intake -f/u urine osmolarity and lytes #Lactic acidosis 2/2 hepatic cirrhosis Lactic acid 4.8 -> 1.6 -continue to monitor #Hepatic cirrhosis and esophageal varices ammonia 25 -GI consult as stated above -cont lactulose, Rifaximin #Coagulopathy INR 1.27, PT 13.3 Most likely 2/2 cirrhosis -monitor vitals and signs of bleeding #Thrombocytopenia Plt 116 -currently at baseline. -avoid NSAIDS for pharm lowering plt drugs #diabetes -continue NovoLog sliding scale #insomnia -cont Trazodone #DVT prophylaxis -ALPS #FULL CODE As Ranked By This Provider Problem List: 1. Anemia Qualifiers Anemia type: unspecified type Qualified Code: D64.9 - Anemia, unspecified 2. Hyponatremia 3. Cirrhosis Core Measures/Misc (05/02) Acute Coronary Syndrome ACS Diagnosis: No Congestive Heart Failure Congestive Heart Failure Diagnosis No Cerebrovascular Accident CVA/TIA Diagnosis: No VTE (View Protocol) VTE Risk Factors Acute Medical Illness No Mechanical VTE Prophylaxis d/t N/A MechProphylax Ordered No VTE Pharm Prophylaxis d/t Bleeding (Active) Sepsis (View protocol) Sepsis Present: No Basilia VAZQUEZ,[facility] 09/28/17 0353: General Information and HPI Allergies/Medications Home Med list B12/Levomefolate Calcium/B-6 (Folbic Rf Tablet) 2 MG-1.13 MG-25 MG TABLET HEART HEALTH (Reported) Cholecalciferol (Vitamin D3) 1,000 UNIT TABLET 1 TAB PO DAILY VITAMIN SUPPORT (Reported) Doxazosin Mesylate (Cardura) 4 MG TABLET 1 TAB PO DAILY PROSTATE (Reported) Ferrous Sulfate 325 MG (65 MG IRON) TABLET 1 TAB PO DAILY ANEMIA (Reported) Finasteride 5 MG TABLET X (Reported) Furosemide (Lasix) 40 MG TABLET HEART HEALTH (Reported) Glipizide (Glipizide ER) 2.5 MG TAB.ER.24 1 TAB PO DAILY DM II (Reported) Lactulose 10 GRAM/15 ML SOLUTION 15 ML PO DAILY CONSTIPATION (Reported) Metformin HCl 1,000 MG TABLET 1 TAB PO BID DIABETES (Reported) Propranolol HCl (Propranolol HCl ER) 60 MG CAP.SA.24H HEART HEALTH (Reported) Rifaximin (Xifaxan) 550 MG TABLET HEART HEALTH (Reported) Spironolactone (Aldactone) 100 MG TABLET X (Reported) Trazodone HCl 100 MG TABLET 1 TAB PO QPM SLEEP (Reported) Vit C/E/Zn/Coppr/Lutein/Zeaxan (Preservision Areds 2 Softgel) 250-200-40 CAPSULE 1 TAB PO BID EYE (Reported) Resident Review Statement Resident Statement: examined this patient, discussed with copywriting intern, agreed with copywriting intern Other Findings: Mr. Feliz is 82 years old male with past medical history significant for diabetes mellitus with peripheral neuropathy, alcoholic cirrhosis, portal hypertension with gastropathy, esophageal varices status post band ligation, essential tremors, cholelithiasis, thrombocytopenia and anemia, anxiety, depression, insomnia and inguinal hernia status post surgical repair presented to ED for evaluation for low hemoglobin level. Patient was evaluated by Dr. Malave GI last week, regular follow up, had upper endoscopy without any intervention, CBC was found to be significant for worsening anemia, since patient didn't have any significant bleeding from the esophageal varices, Dr. Malave asked him to go and see Dr. Willis. Patient saw Dr. Willis today and he was advised to come to ED for evaluation. He reported weakness since April, sleeps a lot, fatigue. Denied any chest pain, shortness of breath, change in the color of stool or the caliber of stool. Note that patient has alternating bowel movement constipation and diarrhea because of the laxative. He has urine and stool incontinence at baseline. Reported getting bruised easily, multiple falls with no significant injuries. Last paracentesis April 2017. He denied any abdominal pain, fever or chills. Reported some confusion on and off. Last colonoscopy was 5 years ago within normal. Problem list Acute blood loss anemia Upper GI bleeding Hyponatremia Lactic acidosis incident of hepatic cirrhosis Hepatic cirrhosis and esophageal varices Coagulopathy Thrombocytopenia Plan Admit to general medical floor Vitals every shift Bleeding and fall precautions Typed and crossmatched Hemoglobin should be above 7 however this patient is symptomatic will transfuse 1 unit of blood Repeat CBC after transfusion Monitor CBC Ammonia level Urine osmolarity and lites Oncology/hematology consultation GI consultation PT evaluation Lactic acid trend DC IV fluid because of third spacing Orthostatic Rapid flu test Accu-Chek and NovoLog sliding scale low-dose Continue home medication, was confirmed by the Diet diabetic with 2 g sodium restriction DVT prophylaxis Alps for thrombocytopeniA Code full David VAZQUEZ, [facility] 09/28/17 0725: Attending MD Review Statement Attending Statement Attending MD Statement: examined this patient, discuss w/resident/PA/SHIPSMITH, agreed w/resident/PA/SHIPSMITH, reviewed images, amended to note Attending Assessment/Plan: 82 yo M with T2DM with neuropathy, alcoholic cirrhosis, portal hypertension with gastropathy, esophageal varices s/p band ligation, essential tremors, cholelithiasis, thrombocytopenia(d/t portal hypertension), recently underwent EGD (Sep [address] Malave) which showed small to medrium esophageal varices without need for ligation, was sent in by Dr. Lovett for anemia. Patient was referred by Dr. Malave to Dr. Lovett for workup of his anemia. Patient reports fatigue, weakness, lightheadedness and recurrent falls. He also reports feeling increasingly tired, sleepy and at times confused. He is oriented x 3 right now. His abdomen is distended and he reports some lower abdominal discomfort but no pain. He denies melena, hematemesis or BRBPR. C/o b/l lower extremity edema. Last colonscopy (2012): nonbleeding angioectasias, pandiverticulosis. Vitals stable, except for transient hypotension. Examination as above. Labs: WBC 14.2, H/H 7.3/21.9, plt 116, INR 1.27, Na 129, bicarb 20, BUN 54, lactic acid 4.8, trop neg. UA clear. CT abd/pelvis: Sep 10 moderate amount of abdominal and pelvic free fluids, splenomegaly. Rectal exam: guaiac positive stool Assessment and plan: 1. Symptomatic anemia 2. Acute on chronic blood loss anemia 3. Possible source upper GI bleed from esophageal varices 4. History of alcoholic cirrhosis with portal hypertension and gastropathy 5. Hyponatremia hypervolemic from cirrhosis 6. Lactic acidosis 7. Coagulopathy with thrombocytopenia 8. Leukocytosis likely reactive, no source of infection - Admit to General medicine - Type and crossmatch - Hb goal is > 7.0, however given he is symptomatic 1 unit was transfused in ER - Guaiac all stools - Check iron studies, B12, folic acid, TSH - GI consult - Hold off on Oncology consult - Check serum and urine osmolality, urine lytes - Check ammonia level (given h/o confusion, although is oriented now) - Discontinue IV fluids, can given albumin to keep SBP ~ 90's. - Trend lactic acid - Consider paracentesis in AM by IR, although patient is in no acute distress due to this - Resume lactulose and rifaximin now. - Resume spirinolactone, lasix and propranolol in AM as BP tolerates. - PT eval for possible placement - Case management consult DVT ppx Alps. Full code. Please confirm CMR and resume meds in AM.
--- NOTE | 2017-09-27 23:17 | Admission Certification ---
Admission Certification Certification Statement - As attending physician, I certify that at the time of - admission, based on clinical presentation, severity of - symptoms, need for further diagnostic testing and - therapeutic interventions, and risk of adverse outcomes - without in-hospital treatment, in my clinical assessment, - this patient requires an acute hospital stay for a minimum - of two nights or longer. I have also considered psychsocial - factors such as support system, advanced age, financial - issues, cognitive issues, and failed out-patient treatments, - past re-admission history, safety of patient, and lack of - compliance as applicable. Specific rationale supporting this admission is: Symptomatic anemia, hyponatremia.
[2017-09-28 00:05] VITALS: BP 88/46
[2017-09-28] MEDS ORDERED: LACTULOSE10 GM/153 PO (01:02)
[2017-09-28 01:30] VITALS: BP 96/40
[2017-09-28 07:35] VITALS: BP 98/46
--- NOTE | 2017-09-28 08:35 | PN- Housestaff ---
See Addendum Subjective Follow-up For: Acute anemia, hyponatremia, cirrohis with ascites Subjective: Admitted last night. He was sent in by Dr. Lovett for symptomatic anemia. He was seen by Dr. Malave, EGD performed 09/20/17 showed esophageal varices and portal HTN without active bleeding. His weakness and fatigue have improved s/p 1unit pRBC. No abd pain, CP, SOB, or other complaints. Patient is incontinent, was evaluated by urology, surgery contraindicated given other medical conditions. Review of Systems Constitutional: Reports: no symptoms. EENTM: Reports: no symptoms. Cardiovascular: Reports: no symptoms. Respiratory: Reports: no symptoms. Gastrointestinal: Reports: see HPI. Genitourinary: Reports: see HPI. Musculoskeletal: Reports: no symptoms. Skin: Reports: no symptoms. Neurological/Psychological: Reports: no symptoms. Hematologic/Endocrine: Reports: see HPI. Immunologic/Allergic: Reports: no symptoms. Objective Last 24 Hrs of Vital Signs/I&O Vital Signs Date Time Temp Pulse Resp B/P B/P Pulse O2 O2 Flow FiO2 Mean Ox Delivery Rate 09/28 0735 97.9 60 20 98/46 95 Room Air 09/28 0130 56 96/40 09/28 0005 98.8 60 18 88/46 99 Room Air 09/27 2305 98.2 62 18 111/54 100 Room Air 09/27 2121 98.6 61 18 98/52 100 Room Air 09/27 2106 97.8 60 20 96/51 100 Room Air 09/27 2020 97.2 58 18 110/51 100 Room Air 09/27 1820 98.0 57 20 94/46 99 Room Air 09/27 1637 97.5 60 20 105/61 96 Room Air Intake & Output 09/28 1600 09/28 0800 09/28 0000 Intake Total 290 600 Output Total 200 Balance 290 400 Intake, IV 50 600 Intake, Oral 240 Number 0 Bowel Movements Output, Urine 200 Patient 70.76 kg Weight Weight Reported by Patient Measurement Method Physical Exam General Appearance: Alert, Oriented X3, Cooperative, No Acute Distress Cardiovascular: Regular Rate, Normal S1, Normal S2 Lungs: Clear to Auscultation Abdomen: distended, with caput medusa and fluid wave, nontender Neurological: Normal Speech Extremities: No Edema, Normal Pulses, No Tenderness/Swelling Current Medications: Current Medications Sig/Sidra Start time Last Medication Dose Route Stop Time Status Admin Acetaminophen 325 MG Q6P PRN 09/28 0100 AC PO Doxazosin Mesylate 4 MG DAILY 09/28 1000 CAN PO Ferrous Sulfate 325 MG DAILY 09/28 1000 AC PO Finasteride 5 MG DAILY 09/28 1000 CAN PO Furosemide 40 MG DAILY 09/28 1000 CAN PO Insulin Aspart 0 TIDAC 09/28 0800 AC SC Lactulose 15 GM DAILY 09/28 1000 AC PO Propranolol HCl 60 MG DAILY 09/28 1000 CAN PO Rifaximin 550 MG BID 09/28 0100 AC 09/28 PO 0205 Sodium Chloride 1,000 ML ONCE ONE 09/27 1999 DC 09/27 IV 09/28 Spironolactone 100 MG DAILY 09/28 1000 CAN PO Trazodone HCl 100 MG QPM 09/28 0200 AC 09/28 PO 0205 Last 24 Hrs of Lab/Herb Results Last 24 Hrs of Labs/Mics: Laboratory Tests 09/28/17 0621: Sodium Pending, Potassium Pending, Chloride Pending, Carbon Dioxide Pending, Anion Gap Pending, BUN Pending, Creatinine Pending, BUN/Creatinine Ratio Pending , CBC w Diff Pending, WBC Pending, RBC Pending, Hgb Pending, Hct Pending, MCV Pending, MCH Pending, MCHC Pending, RDW Pending, Plt Count Pending, MPV Pending 09/28/17 0205: Lactic Acid 1.6 09/28/17 0025: Anion Gap 10, Estimated GFR > 60, BUN/Creatinine Ratio 67.1 H, Ammonia 25 09/27/17 1846: Urine Color YEL, Urine Clarity CLEAR, Urine pH 6.0, Ur Specific [place] 1.015, Urine Protein NEG, Urine Ketones NEG, Urine Nitrite NEG, Urine Bilirubin NEG, Urine Urobilinogen 0.2, Ur Leukocyte Esterase NEG, Ur Microscopic EXAM NOT REQUIRED, Urine Hemoglobin NEG, Urine Glucose NEG 09/27/17 1713: Anion Gap 14, Estimated GFR > 60, BUN/Creatinine Ratio 67.5 H, Glucose 95, Lactic Acid 4.8 H, Calcium 9.6, Iron 13 L, TIBC 317, Ferritin 44.0, Total Bilirubin 0.6, AST 44, ALT 45, Alkaline Phosphatase 97, Lactate Dehydrogenase 409, Troponin I < 0.01, Total Protein 6.7, Albumin 2.8 L, Globulin 3.9, Albumin /Globulin Ratio 0.7 L, PT 13.3 H, INR 1.27 H, CBC w Diff NO MAN DIFF REQ, RBC 2.57 L, MCV 85.5, MCH 28.5, MCHC 33.3, RDW 16.9 H, MPV 10.9 H, Gran % 88.2 H , Lymphocytes % 4.2 L, Monocytes % 7.1, Eosinophils % 0.5, Basophils % 0, Absolute Granulocytes 12.6 H, Absolute Lymphocytes 0.6 L, Absolute Monocytes 1.0 H, Absolute Eosinophils 0.1, Absolute Basophils 0, Retic Count 2.74 H Microbiology 09/28 0145 NASOPHARYN: Influenza Virus A & B Rapid Smear - COMP Assessment/Plan Assessment: 82-year-old male with past history of alcoholic cirrhosis, portal hypertension with gastropathy, esophageal varices status post band ligation,diabetes mellitus with peripheral neuropathy, essential tremors, cholelithiasis, thrombocytopenia and anemia, anxiety, depression, insomnia and inguinal hernia status post surgical repair sent to the emergency department from Dr. Willis's office for low hemoglobin. Problem List: 1. Acute iron deficiency anemia 2. Acute hyponatremia 3. Lactic acidosis 4. Hepatic cirrhosis with esophageal varices and mild portal hypertension #Acute iron deficiency anemia: Patient was sent in by Dr. Willis for symptomatic anemia. Hemoglobin at admission was 7.3. He feels better this morning status post 1 unit PRBC. His guaiac was positive. Lactic acidosis has resolved. -Monitor CBC, hemoglobin goal greater than 7 -Appreciate GI recommendations -PT evaluation #Acute hyponatremia: Sodium on admission was 129. -Follow up urinary electrolytes -Continue to monitor #Hepatic cirrhosis with esophageal varices and mild portal hypertension: No fevers or chills to suggest SBP at this time. -Continue lactulose and rifaximin #Chronic medical problems: -Continue other home medications DVT prophylaxis with heparin Consistent carbohydrate 3 diet Full code Problem List: 1. Cirrhosis 2. Anemia Pain Ratin Pain Location: no pain Pain Goal: Remain pain free Pain Plan: see a/p Tomorrow's Labs & Rationales: none
[2017-09-28 08:43] LABS: ABSOLUTE BASOPHIL COUNT 0 /CUMM (0.0-0.2); ABSOLUTE EOSINOPHIL COUNT 0.1 /CUMM (0.0-0.7); ABSOLUTE GRANULOCYTE CT 9.8 /CUMM (1.4-6.5); ABSOLUTE LYMPH COUNT 0.5 /CUMM (1.2-3.4); ABSOLUTE MONOCYTE COUNT 1.1 /CUMM (0.10-0.60); BASOPHIL % 0 % (0.0-2.0); MEAN CORPUSCULAR HGB CONC 33.8 G/DL (33.0-37.0); MEAN PLATELET VOLUME 10.9 FL (7.4-10.4); PLATELET COUNT 117 /CUMM (130-400); RBC DISTRIBUTION WIDTH 17.8 % (11.5-14.5); RED BLOOD CELL CT 2.79 /CUMM (4.70-6.10); WHITE BLOOD CELL COUNT 11.6 /CUMM (4.8-10.8)
[2017-09-28 09:34] LABS: GRANULOCYTE % 84.7 % (42.2-75.2)
--- NOTE | 2017-09-28 11:01 | Patient Discharge Instructions ---
Discharge Instructions General Discharge Information You were seen/treated for: Anemia Watch for these problems: Fever, chest pain, shortness of breath Special Instructions: Please take all medications as directed. Please follow-up with primary care. Activity Full Activity/No Limits: Yes Acute Coronary Syndrome Inclusion Criteria At DC or during hospital stay patient has or had the following: ACS DIAGNOSIS No Discharge Core Measures Meds if any: Prescribed or Continued at Discharge Meds if any: NOT Prescribed or Continued at Discharge Congestive Heart Failure Inclusion Criteria At DC or during hospital stay patient has or had the following: CHF DIAGNOSIS No Discharge Core Measures Meds if any: Prescribed or Continued at Discharge Meds if any: NOT Prescribed or Continued at Discharge Cerebrovascular accident Inclusion Criteria At DC or during hospital stay patient has or had the following: CVA/TIA Diagnosis No Discharge Core Measures Meds if any: Prescribed or Continued at Discharge Meds if any: NOT Prescribed or Continued at Discharge Venous thromboembolism Inclusion Criteria VTE Diagnosis No VTE Type NONE VTE Confirmed by (Test) NONE Discharge Core Measures - Per Current guidelines, there needs to be overlap - treatment for the first 5 days of Warfarin therapy. - If discharged on Warfarin prior to 5 days of - overlap therapy, the patient will need to be - assessed for post discharge needs including - *Post discharge parental anticoagulation - *Warfarin and/or parental anticoagulation education - *Follow up date to check INR post discharge At least 5 days overlap therapy as Inpatient No Meds if any: Prescribed or Continued at Discharge Note: Overlap Therapy is Warfarin and Anticoagulant Meds if any: NOT Prescribed or Continued at Discharge
[2017-09-28 13:28] VITALS: BP 90/54
--- NOTE | 2017-09-28 16:05 | Cons- Gastroenterology ---
General Information and HPI Consulting Request Date of Consult: 09/28/17 Requested By: David VAZQUEZ,Aricalakshmi Reason for Consult: Anemia Source of Information: Electronic Medical Record Exam Limitations: poor historian History of Present Illness: Mr. Feliz is an 82-year-old male with a past medical history of alcoholic cirrhosis, diabetes mellitus with peripheral neuropathy, essential tremors, cholelithiasis, and chronic anemia, as well as anxiety, depression, insomnia. He has had an inguinal herniorraphy. I have reviewed Mr. Feliz's electronic medical record. He was admitted to [facility] in May 2015 for anemia. At that time his H&H was 8.1 and 24.9. At that time he had 89,000 platelets and an albumin of 3.4. His PT/INR was 13.4/1.36. In 2012 he had undergone EGD and colonoscopy by Dr. Hudson Carlisle and was found to have grade 2-3 varices with no stigmata of bleeding and did not undergo banding. He also had portal hypertensive gastropathy with no stigmata of bleeding. On colonoscopy he had nonbleeding colonic ectasias which were felt to be the source of his anemia. At that time he had an MRI which showed a cirrhotic liver, gastric and esophageal varices as well as splenomegaly. In April 2015 just prior to admission Mr. Feliz underwent EGD with band ligation of grade 2-3 esophageal varices with red whale sign by Dr. Mike Malave to his his primary fur blower. On admission in May he underwent EGD by Dr. Carlota kelley and was found to have ulceration at the site of prior band ligation. Since that time Mr. Feliz has undergone surveillance EGD and has generally had insignificant varices with no stigmata of bleeding. His last EGD was on September 20, 2017 and he was found to have a small to medium sized esophageal varices with no stigmata of bleeding and mild portal hypertensive gastropathy. Per my discussions with Dr. Malave it is his impression that Mr. Feliz has had gradual decompensation of his cirrhosis. Mr. Feliz was seen by Dr. Lovett in his office on the day of admission for evaluation of his anemia. Dr. Lovett recommended that Mr. Feliz be evaluated for transfusion at the [facility] ED where he was subsequently admitted. Mr. Feliz complains of fatigue. However he denies melena, bright red blood per rectum, nausea vomiting or abdominal pain. He last had a colonoscopy in 2004 which was completely normal. He has had no anorexia or unusual weight loss. He is had no unusual bruisability and denies fever, shaking chills, or malaise. He had a CT Scan of the abdomen done in August of this year. The results are as follows: FINDINGS: The visualized lung bases are clear. The visualized portions of the heart are unremarkable. Distal esophageal varices are demonstrable. There are diffuse upper abdominal varices. The liver is of decreased size and mildly heterogeneous attenuation without intrahepatic biliary ductal dilation. Within the right lobe, there is a stable 10 mm low-attenuation focus. The gallbladder is distended. There is a calculus present dependently within the gallbladder lumen. There is pericholecystic fluid, though there is also a moderate amount of additional free fluid within the upper abdomen. The pancreas and adrenal glands are unremarkable. The spleen is of normal contour and attenuation. It is enlarged measuring 13.7 cm. Both kidneys are of normal size and attenuation without hydronephrosis or nephrolithiasis. Following the administration of IV contrast, prompt symmetric nephrograms are displayed. There is no abdominal free fluid. There are numerous retroperitoneal lymph nodes. The largest is at the level of the left renal hilum measuring approximately 1.9 cm in short axis on image [id number]. There is nonspecific mesenteric fat stranding. Normal unopacified loops of small and large bowel are identified. There is a large amount of pelvic free fluid. The urinary bladder is partially filled. There is an 11 mm calculus within the bladder. There is neither pelvic nor inguinal lymphadenopathy. Bone windows: Neither sclerotic nor lytic bone lesions are identified. There is multilevel disc height loss throughout the lumbar spine. IMPRESSION: Moderate amount of abdominal and pelvic free fluid. Manifestations of cirrhosis and upper abdominal and lower esophageal varices. Splenomegaly. Cholelithiasis without evidence of cholecystitis. Scattered retroperitoneal lymph nodes. The largest measures 19 mm in short axis. We are consulted for assistance with this patient who is well known to our service. Allergies/Medications Allergies: Coded Allergies: NO KNOWN ALLERGIES (06/13/15) Home Med List: B12/Levomefolate Calcium/B-6 (Folbic Rf Tablet) 2 MG-1.13 MG-25 MG TABLET [facility] [employer] (Reported) Cholecalciferol (Vitamin D3) 1,000 UNIT TABLET 1 TAB PO DAILY VITAMIN SUPPORT (Reported) Doxazosin Mesylate (Cardura) 4 MG TABLET 1 TAB PO DAILY PROSTATE (Reported) Ferrous Sulfate 325 MG (65 MG IRON) TABLET 1 TAB PO DAILY ANEMIA (Reported) Finasteride 5 MG TABLET X (Reported) Furosemide (Lasix) 40 MG TABLET HEART HEALTH (Reported) Glipizide (Glipizide ER) 2.5 MG TAB.ER.24 1 TAB PO DAILY DM II (Reported) Lactulose 10 GRAM/15 ML SOLUTION 15 ML PO DAILY CONSTIPATION (Reported) Metformin HCl 1,000 MG TABLET 1 TAB PO BID DIABETES (Reported) Propranolol HCl (Propranolol HCl ER) 60 MG CAP.SA.24H HEART HEALTH (Reported) Rifaximin (Xifaxan) 550 MG TABLET HEART HEALTH (Reported) Spironolactone (Aldactone) 100 MG TABLET X (Reported) Trazodone HCl 100 MG TABLET 1 TAB PO QPM SLEEP (Reported) Vit C/E/Zn/Coppr/Lutein/Zeaxan (Preservision Areds 2 Softgel) 250-200-40 CAPSULE 1 TAB PO BID EYE (Reported) Current Medications: Current Medications Sig/Sidra Start time Last Medication Dose Route Stop Time Status Admin Acetaminophen 325 MG Q6P PRN 09/28 0100 AC PO Doxazosin Mesylate 4 MG DAILY 09/28 1000 CAN PO Ferrous Sulfate 325 MG DAILY 09/28 1000 AC 09/28 PO 1038 Finasteride 5 MG DAILY 09/28 1000 CAN PO Furosemide 40 MG DAILY 09/28 1000 CAN PO Insulin Aspart 0 TIDAC 09/28 0800 AC SC Lactulose 15 GM DAILY 09/28 1000 AC 09/28 PO 1038 Propranolol HCl 60 MG DAILY 09/28 1000 CAN PO Rifaximin 550 MG BID 09/28 0100 AC 09/28 PO 1038 Sodium Chloride 1,000 ML ONCE ONE 09/27 1999 DC 09/27 IV 09/28 0239 2020 Spironolactone 100 MG DAILY 09/28 1000 CAN PO Trazodone HCl 100 MG QPM 09/28 0200 AC 09/28 PO 0205 Past History Travel History Traveled to [place] past 21 day No Medical History Blood Transfusion Hx: Yes Neurological: peripheral neuropathy, essential tremor EENT: cataracts, hearing loss Cardiovascular: NONE Respiratory: NONE Gastrointestinal: Esophageal varices, band ligated Junctional varices Portal hypertensive gastropathy Hepatic: cholelithiasis, cirrhosis Renal: NONE Musculoskeletal: osteoarthritis Psychiatric: alcohol dependence, insomnia Endocrine: diabetes Blood Disorders: thrombocytopenia (cirrhotic) Cancer(s): NONE CLIENT SUPPORT PROFESSIONAL/Reproductive: NONE Surgical History Surgical History: UPPER ENDOSCOPY WITH VARICEAL BANDING. tracheostomy as . INGUINAL HERNIA REPAIRED Family History Relations & Conditions If Any: maternal aunt, ; Cause: Alcoholic cirrhosis. Psychosocial History Where Do You Live? Home Who Do You Live With? spouse Services at Home: None Primary Language: Indonesian Smoking Status: Former Smoker Living Will? full code Power of Splicer Helper/HCP? unknown Functional Ability ADLs Independent: dressing, eating, toileting, bathing. Ambulation: independent IADLs Independent: shopping, housework, finances, food prep, telephone, transportation , medication admin. Exam & Diagnostic Data Vital Signs and I&O Vital Signs Date Time Temp Pulse Resp B/P B/P Pulse O2 O2 Flow FiO2 Mean Ox Delivery Rate 09/28 1328 98.1 60 20 90/54 98 Room Air 09/28 0735 97.9 60 20 98/46 95 Room Air 09/28 0130 56 96/40 09/28 0005 98.8 60 18 88/46 99 Room Air 09/27 2305 98.2 62 18 111/54 100 Room Air 09/27 2121 98.6 61 18 98/52 100 Room Air 09/27 2106 97.8 60 20 96/51 100 Room Air 09/27 2020 97.2 58 18 110/51 100 Room Air 09/27 1820 98.0 57 20 94/46 99 Room Air 09/27 1637 97.5 60 20 105/61 96 Room Air Intake & Output 09/28 1600 09/28 0400 09/27 1600 09/27 0400 09/26 1600 09/26 0400 Intake Total 290 600 Output Total 200 Balance 290 400 Intake, IV 50 600 Intake, Oral 240 Number 0 Bowel Movements Output, Urine 200 Patient 156 lb Weight Weight Reported by Patient Measurement Method Results Pertinent Lab Results: Laboratory Tests 09/28 09/28 09/28 0621 0205 0025 Chemistry Sodium (137 - 145 mmol/L) 132 L 131 L Potassium (3.5 - 5.1 mmol/L) 4.6 4.5 Chloride (98 - 107 mmol/L) 99 100 Carbon Dioxide (22 - 30 mmol/L) 22 22 Anion Gap (5 - 16) 12 10 BUN (9 - 20 mg/dL) 46 H 47 H Creatinine (0.7 - 1.2 mg/dL) 0.7 0.7 Estimated GFR (>60 ml/min) > 60 > 60 BUN/Creatinine Ratio (7 - 25 %) 65.7 H 67.1 H Lactic Acid (0.7 - 2.1 mmol/L) 1.6 Ammonia (9 - 30 umol/L) 25 Hematology CBC w Diff NO MAN DIFF REQ WBC (4.8 - 10.8 /CUMM) 11.6 H RBC (4.70 - 6.10 /CUMM) 2.79 L Hgb (14.0 - 18.0 G/DL) 8.1 L Hct (42 - 52 %) 24.0 L MCV (80.0 - 94.0 FL) 86.0 MCH (27.0 - 31.0 PG) 29.0 MCHC (33.0 - 37.0 G/DL) 33.8 RDW (11.5 - 14.5 %) 17.8 H Plt Count (130 - 400 /CUMM) 117 L MPV (7.4 - 10.4 FL) 10.9 H Gran % (42.2 - 75.2 %) 84.7 H Lymphocytes % (20.5 - 51.1 %) 4.6 L Monocytes % (1.7 - 9.3 %) 9.7 H Eosinophils % (0 - 5 %) 1.0 Basophils % (0.0 - 2.0 %) 0 Absolute Granulocytes (1.4 - 6.5 /CUMM) 9.8 H Absolute Lymphocytes (1.2 - 3.4 /CUMM) 0.5 L Absolute Monocytes (0.10 - 0.60 /CUMM) 1.1 H Absolute Eosinophils (0.0 - 0.7 /CUMM) 0.1 Absolute Basophils (0.0 - 0.2 /CUMM) 0 09/27 02 1846 1713 Chemistry Sodium (137 - 145 mmol/L) 129 L Potassium (3.5 - 5.1 mmol/L) 5.0 Chloride (98 - 107 mmol/L) 95 L Carbon Dioxide (22 - 30 mmol/L) 20 L Anion Gap (5 - 16) 14 BUN (9 - 20 mg/dL) 54 H Creatinine (0.7 - 1.2 mg/dL) 0.8 Estimated GFR (>60 ml/min) > 60 BUN/Creatinine Ratio (7 - 25 %) 67.5 H Glucose (65 - 99 mg/dL) 95 Lactic Acid (0.7 - 2.1 mmol/L) 4.8 H Calcium (8.4 - 10.2 mg/dL) 9.6 Iron (49 - 181 ug/dL) 13 L TIBC (261 - 462 ug/dL) 317 Ferritin (17.9 - 464 ng/mL) 44.0 Total Bilirubin (0.2 - 1.3 mg/dL) 0.6 AST (17 - 59 U/L) 44 ALT (21 - 72 U/L) 45 Alkaline Phosphatase (< 127 U/L) 97 Lactate Dehydrogenase (313 - 618 U/L) 409 Troponin I (<0.11 ng/ml) < 0.01 Total Protein (6.3 - 8.2 g/dL) 6.7 Albumin (3.5 - 5.0 g/dL) 2.8 L Globulin (1.9 - 4.2 gm/dL) 3.9 Albumin/Globulin Ratio (1.1 - 2.2 %) 0.7 L Coagulation PT (9.4 - 12.5 SEC) 13.3 H INR (0.90 - 1.17) 1.27 H Hematology CBC w Diff NO MAN DIFF REQ WBC (4.8 - 10.8 /CUMM) 14.2 H RBC (4.70 - 6.10 /CUMM) 2.57 L Hgb (14.0 - 18.0 G/DL) 7.3 *L Hct (42 - 52 %) 21.9 L MCV (80.0 - 94.0 FL) 85.5 MCH (27.0 - 31.0 PG) 28.5 MCHC (33.0 - 37.0 G/DL) 33.3 RDW (11.5 - 14.5 %) 16.9 H Plt Count (130 - 400 /CUMM) 116 L MPV (7.4 - 10.4 FL) 10.9 H Gran % (42.2 - 75.2 %) 88.2 H Lymphocytes % (20.5 - 51.1 %) 4.2 L Monocytes % (1.7 - 9.3 %) 7.1 Eosinophils % (0 - 5 %) 0.5 Basophils % (0.0 - 2.0 %) 0 Absolute Granulocytes (1.4 - 6.5 /CUMM) 12.6 H Absolute Lymphocytes (1.2 - 3.4 /CUMM) 0.6 L Absolute Monocytes (0.10 - 0.60 /CUMM) 1.0 H Absolute Eosinophils (0.0 - 0.7 /CUMM) 0.1 Absolute Basophils (0.0 - 0.2 /CUMM) 0 Retic Count (0.5 - 2.0 %) 2.74 H Urines Urine Color (YEL,AMB,STR) YEL Urine Clarity (CLEAR) CLEAR Urine pH (5.0 - 8.0) 6.0 Ur Specific [place] (1.001 - 1.035) 1.015 Urine Protein (NEG,<30 MG/DL) NEG Urine Ketones (NEG) NEG Urine Nitrite (NEG) NEG Urine Bilirubin (NEG) NEG Urine Urobilinogen (0.1 - 1.0 EU/dl) 0.2 Ur Leukocyte Esterase (NEG) NEG Ur Microscopic EXAM NOT REQUIRED Urine Hemoglobin (NEG) NEG Urine Glucose (N MG/DL) NEG Assessment/Plan Assessment/Recommendations: ASSESSMENT: 1. Alcoholic Cirrhosis 2. Esophageal Varices -- Non-Bleeding 3. Acute on Chronic Anemia -- Patient with H/H of 7.3/21.9 on admission now 8.1 /24.0. With no signs of overt gastrointestinal bleeding 4. Retroperitoneal lymphadenopathy on CT Scan -- ? significance. Will review with radiology. ? benign reactive or malignant process 5. Esophageal Varices -- no clinical signs of bleeding. On propranolol for primary prophylaxis of variceal bleeding. RECOMMENDATIONS: 1. Continue current medications 2. Will review CT Scan with radiology. 3. Follow serial H/H. No need for repeat endoscopic investigation at this time. Continue propranolol. 4. AFP if it has not been drawn recently. Consult Acknowledgment - Thank you for your consult request.
[2017-09-28 22:01] VITALS: BP 88/48
[2017-09-28 23:26] VITALS: BP 92/50
--- NOTE | 2017-09-29 06:43 | PN- Housestaff ---
See Addendum Subjective Follow-up For: anemia Subjective: GUS. Patient feels good this morning, no CP, SOB, abd pain, fatigue or diarrhea. He is complaining of some nipple pain and swollen legs. Review of Systems Constitutional: Reports: no symptoms. EENTM: Reports: no symptoms. Cardiovascular: Reports: no symptoms. Respiratory: Reports: no symptoms. Gastrointestinal: Reports: no symptoms. Genitourinary: Reports: no symptoms. Musculoskeletal: Reports: see HPI. Skin: Reports: no symptoms. Neurological/Psychological: Reports: no symptoms. Hematologic/Endocrine: Reports: no symptoms. Immunologic/Allergic: Reports: no symptoms. Objective Last 24 Hrs of Vital Signs/I&O Vital Signs Date Time Temp Pulse Resp B/P B/P Pulse O2 O2 Flow FiO2 Mean Ox Delivery Rate 09/286 92/50 09/281 97.5 64 19 88/48 97 Room Air 09/28 1723 Room Air 09/28 1328 98.1 60 20 90/54 98 Room Air 09/28 0735 97.9 60 20 98/46 95 Room Air Intake & Output 09/29 0800 09/29 0000 09/28 1600 Intake Total 240 1800 Output Total 200 Balance 40 1800 Intake, IV 0 Intake, Oral 240 1800 Number 0 Bowel Movements Output, Urine 200 Physical Exam General Appearance: Alert, Oriented X3, Cooperative, No Acute Distress Skin: nipples appear normal, nontender to palpation. Cardiovascular: Regular Rate, Normal S1, Normal S2 Lungs: Clear to Auscultation Abdomen: disteneded, nontender Neurological: Normal Speech Extremities: 2+ pitting edema bilaterally, mildly tender Current Medications: Current Medications Sig/Sidra Start time Last Medication Dose Route Stop Time Status Admin Acetaminophen 325 MG Q6P PRN 09/28 010 AC PO Ferrous Sulfate 325 MG DAILY 09/28 1000 AC 09/28 PO 1038 Guaifenesin 600 MG Q12 09/28 2200 CAN PO Insulin Aspart 0 TIDAC 09/28 0800 AC 09/28 SC 1741 Lactulose 15 GM DAILY 09/28 1000 AC 09/28 PO 1038 Rifaximin 550 MG BID 09/28 0100 AC 09/28 PO 220 Trazodone HCl 100 MG QPM 09/28 0200 AC 09/28 PO 220 Assessment/Plan Assessment: 82-year-old male with past history of alcoholic cirrhosis, portal hypertension with gastropathy, esophageal varices status post band ligation,diabetes mellitus with peripheral neuropathy, essential tremors, cholelithiasis, thrombocytopenia and anemia, anxiety, depression, insomnia and inguinal hernia status post surgical repair sent to the emergency department from Dr. Willis's office for low hemoglobin. Problem List: 1. Acute iron deficiency anemia 2. Acute hyponatremia 3. Lactic acidosis 4. Hepatic cirrhosis with esophageal varices and mild portal hypertension 5. Deconditioning #Acute iron deficiency anemia: Patient was sent in by Dr. Willis for symptomatic anemia. Hemoglobin at admission was 7.3. He is status post 1 unit PRBC. His guaiac was positive. Lactic acidosis has resolved. -Monitor CBC, hemoglobin goal greater than 7 -Appreciate GI recommendations -PT evaluation -Continue ferrous sulfate #Deconditioning: Patient has been not eating well and not moving around a lot prior to admission. PT evaluated yesterday and recommended short-term rehabilitation. -Short-term rehabilitation at discharge #Acute hyponatremia: Sodium on admission was 129. Improved to 132. -Follow up urinary electrolytes -Continue to monitor #Hepatic cirrhosis with esophageal varices and mild portal hypertension: Compensated. No fevers or chills to suggest SBP at this time. -Continue lactulose and rifaximin #Chronic medical problems: -Continue other home medications DVT prophylaxis with alps Consistent carbohydrate 3 diet Full code Problem List: 1. Anemia Pain Ratin Pain Location: none Pain Goal: Remain pain free Pain Plan: see a/p Tomorrow's Labs & Rationales: none
[2017-09-29 06:56] VITALS: BP 114/53
--- NOTE | 2017-09-29 09:58 | Discharge Summary ---
Visit Information Visit Dates Admission Date: 09/27/17 Discharge Date: 09/29/17 Hospital Course Course Attending Physician: Marcy Thomson MD Primary Care Physician: Anurag Akins MD Hospital Course: 82-year-old male with past history of alcoholic cirrhosis, portal hypertension with gastropathy, esophageal varices status post band ligation,diabetes mellitus with peripheral neuropathy, essential tremors, cholelithiasis, thrombocytopenia and anemia, anxiety, depression, insomnia and inguinal hernia status post surgical repair sent to the emergency department from Dr. Willis's office for low hemoglobin. #Acute iron deficiency anemia: Patient was sent in for symptomatic anemia. Hemoglobin at admission was 7.3. He is status post 1 unit PRBC. His guaiac was positive on admission. Hg is stable post blood transfusion. We continue ferrous sulfate. GI recommended against repeat endoscopic investigation at this time. On discharge we will continue propranolol for primary prophylaxis of variceal bleeding. The patient will be instructed to follow up with Dr. Malave. # Retroperitoneal lymphadenopathy on CT Scan Noted increase in size of lymphadenopathy. For now patient appears stable from the point of view of his end-stage liver disease. He will be instructed to follow up with Dr. Lovett as an out-patient. #Hepatic cirrhosis with esophageal varices and mild portal hypertension: No fevers or chills to suggest SBP during admission. No active bleeding. Patient received lactulose and rifaximin. On propranolol for primary prophylaxis of variceal bleeding. On discharge we held, spironolactone, doxasosin, furosemide, and finasteride because of hypotension, patient will need to follow up with PCP within one week of discharge to address restarting these medications. #Deconditioning: Patient has been not eating and ambulating well prior to admission. physical therapy evaluated and recommended short-term rehabilitation. #Chronic medical problems: We continue other home medications Allergies: Coded Allergies: NO KNOWN ALLERGIES (06/13/15) Disposition Summary Disposition Principal Diagnosis: 1. Acute iron deficiency anemia 2. Acute hyponatremia 3. Lactic acidosis 4. Hepatic cirrhosis with esophageal varices and mild portal hypertension Additional Diagnosis: Deconditioning Discharge Disposition: SNF Discharge Instructions General Discharge Information Code Status: Full Code Patient's Diet: diabetic diet Patient's Activity: as tolerated Follow-Up Instructions/Appts: please f/u with PCP, GI, hem/onc within 1-2 weeks of discharge. Medications at Discharge Discharge Medications: Stop taking the following medications: Doxazosin Mesylate (Cardura) 4 MG TABLET ORAL DAILY Furosemide (Lasix) 40 MG TABLET ORAL DAILY Qty = 30 Finasteride (Finasteride) 5 MG TABLET ORAL DAILY Qty = 30 Spironolactone (Aldactone) 100 MG TABLET ORAL DAILY Qty = 30 Continue taking these medications: Cholecalciferol (Vitamin D3) 1,000 UNIT TABLET 1 Tablet ORAL DAILY Comments: NOT GIVEN IN HOSPITAL Metformin HCl (Metformin HCl) 1,000 MG TABLET 1 Tablet ORAL TWICE DAILY Comments: NOT GIVEN AT HOSPITAL Trazodone HCl (Trazodone HCl) 100 MG TABLET 1 Tablet ORAL Every night Comments: Last Taken: 09/29/17 Time: 2200PM Glipizide (Glipizide ER) 2.5 MG TAB.ER.24 1 Tablet ORAL DAILY Comments: NOT GIVEN AT HOSPITAL Vit C/E/Zn/Coppr/Lutein/Zeaxan (Preservision Areds 2 Softgel) 250-200-40 CAPSULE 1 Tablet ORAL TWICE DAILY Comments: NOT GIVEN AT HOSPITAL Ferrous Sulfate (Ferrous Sulfate) 325 MG (65 MG IRON) TABLET 1 Tablet ORAL DAILY Comments: Last Taken: 09/30/17 Time: 9AM Propranolol HCl (Propranolol HCl ER) 60 MG CAP.SA.24H 1 Capsule ORAL DAILY Qty = 30 B12/Levomefolate Calcium/B-6 (Folbic Rf Tablet) 2 MG-1.13 MG-25 MG TABLET 1 Tablet ORAL DAILY Qty = 30 Comments: NOT GIVEN IN HOSPITAL Rifaximin (Xifaxan) 550 MG TABLET 1 Tablet ORAL TWICE DAILY Qty = 60 Comments: Last Taken: 09/30/17 Time: 9AM Lactulose (Lactulose) 10 GRAM/15 ML SOLUTION 15 Milliliters ORAL DAILY Comments: Last Taken: 09/30/17 Time: 9AM Copies To: Tashi VAZQUEZ,Anurag Zuniga; Rachell VAZQUEZ,Anderson Antunez; Ananda VAZQUEZ,Nigel Doyle
--- NOTE | 2017-09-29 10:14 | PN- Gastroenterology ---
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 Acute on Chronic Anemia -- Patient with H/H of 7.3/21.9 on admission now 8.1 /24.0. With no signs of overt gastrointestinal bleeding 4. Retroperitoneal lymphadenopathy on CT Scan -- ? significance. Will review with radiology. ? benign reactive or malignant process 5. Esophageal Varices -- no clinical signs of bleeding. On propranolol for primary prophylaxis of variceal bleeding. RECOMMENDATIONS: 1. Continue current medications 2. Reviewed CT Scan with radiology who noted increase in size of lymphadenopathy. Spoke with Dr. Lovett who had also reviewed the CT with radiology. He will see patient back in office for further evaluation. Although patient may not be a candidate for chemotherapy should he have a hematologic malignancy because of his multiple medical comorbidities, that can be addressed if that diagnosis is made. For now patient appears stable from the point of view of his end-stage liver disease. 3. Follow serial H/H. No need for repeat endoscopic investigation at this time. Continue propranolol. 4. AFP if it has not been drawn recently. 5. At discharge, patient should have follow up appointments made with both Dr. Lovett and with Dr. Mike Malave Subjective Subjective: Doing well. No nausea, vomiting or abdominal pain. Tolerating diet. Objective Vital Signs and I&Os Vital Signs Date Time Temp Pulse Resp B/P B/P Pulse O2 O2 Flow FiO2 Mean Ox Delivery Rate 09/29 0656 97.7 67 18 114/53 98 Room Air 09/28 2326 92/50 09/28 2201 97.5 64 19 88/48 97 Room Air 09/28 1723 Room Air 09/28 1328 98.1 60 20 90/54 98 Room Air Intake & Output 09/29 1600 09/29 0400 09/28 1600 09/28 0400 09/27 1600 09/27 0400 Intake Total 162 939 8749 600 Output Total 200 200 Balance 919 76 5166 400 Intake, IV 50 600 Intake, Oral 793 291 2883 Number 0 Bowel Movements Output, Urine 200 200 Patient 156 lb Weight Weight Reported by Patient Measurement Method Physical Exam General Appearance: no apparent distress, alert, awake Respiratory: lungs clear Cardiovascular: regular rate/rhythm Abdomen: normal bowel sounds, soft, non-tender Neurologic/Psychiatric: alert, oriented x 3, mild asterixis Current Medications: Current Medications Sig/Sidra Start time Last Medication Dose Route Stop Time Status Admin Acetaminophen 325 MG Q6P PRN 09/28 0100 AC PO Ferrous Sulfate 325 MG DAILY 09/28 1000 AC 09/29 PO 1008 Guaifenesin 600 MG Q12 09/28 2200 CAN PO Insulin Aspart 0 TIDAC 09/28 0800 AC 09/28 SC 1741 Lactulose 15 GM DAILY 09/28 1000 AC 09/29 PO 1009 Rifaximin 550 MG BID 09/28 0100 AC 09/29 PO 1008 Trazodone HCl 100 MG QPM 09/28 0200 AC 09/28 PO 220 Results Pertinent Lab Results: Laboratory Tests 09/28 09/28 09/28 0621 0621 0205 Chemistry Sodium (137 - 145 mmol/L) 132 L Potassium (3.5 - 5.1 mmol/L) 4.6 Chloride (98 - 107 mmol/L) 99 Carbon Dioxide (22 - 30 mmol/L) 22 Anion Gap (5 - 16) 12 BUN (9 - 20 mg/dL) 46 H Creatinine (0.7 - 1.2 mg/dL) 0.7 Estimated GFR (>60 ml/min) > 60 BUN/Creatinine Ratio (7 - 25 %) 65.7 H Lactic Acid (0.7 - 2.1 mmol/L) 1.6 Alpha Fetoprotein Pending Hematology CBC w Diff NO MAN DIFF REQ WBC (4.8 - 10.8 /CUMM) 11.6 H RBC (4.70 - 6.10 /CUMM) 2.79 L Hgb (14.0 - 18.0 G/DL) 8.1 L Hct (42 - 52 %) 24.0 L MCV (80.0 - 94.0 FL) 86.0 MCH (27.0 - 31.0 PG) 29.0 MCHC (33.0 - 37.0 G/DL) 33.8 RDW (11.5 - 14.5 %) 17.8 H Plt Count (130 - 400 /CUMM) 117 L MPV (7.4 - 10.4 FL) 10.9 H Gran % (42.2 - 75.2 %) 84.7 H Lymphocytes % (20.5 - 51.1 %) 4.6 L Monocytes % (1.7 - 9.3 %) 9.7 H Eosinophils % (0 - 5 %) 1.0 Basophils % (0.0 - 2.0 %) 0 Absolute Granulocytes (1.4 - 6.5 /CUMM) 9.8 H Absolute Lymphocytes (1.2 - 3.4 /CUMM) 0.5 L Absolute Monocytes (0.10 - 0.60 /CUMM) 1.1 H Absolute Eosinophils (0.0 - 0.7 /CUMM) 0.1 Absolute Basophils (0.0 - 0.2 /CUMM) 0 09/28 09/27 0025 1846 Chemistry Sodium (137 - 145 mmol/L) 131 L Potassium (3.5 - 5.1 mmol/L) 4.5 Chloride (98 - 107 mmol/L) 100 Carbon Dioxide (22 - 30 mmol/L) 22 Anion Gap (5 - 16) 10 BUN (9 - 20 mg/dL) 47 H Creatinine (0.7 - 1.2 mg/dL) 0.7 Estimated GFR (>60 ml/min) > 60 BUN/Creatinine Ratio (7 - 25 %) 67.1 H Ammonia (9 - 30 umol/L) 25 Urines Urine Color (YEL,AMB,STR) YEL Urine Clarity (CLEAR) CLEAR Urine pH (5.0 - 8.0) 6.0 Ur Specific [place] (1.001 - 1.035) 1.015 Urine Protein (NEG,<30 MG/DL) NEG Urine Ketones (NEG) NEG Urine Nitrite (NEG) NEG Urine Bilirubin (NEG) NEG Urine Urobilinogen (0.1 - 1.0 EU/dl) 0.2 Ur Leukocyte Esterase (NEG) NEG Ur Microscopic EXAM NOT REQUIRED Urine Hemoglobin (NEG) NEG Urine Glucose (N MG/DL) NEG 09/27 1713 Chemistry Sodium (137 - 145 mmol/L) 129 L Potassium (3.5 - 5.1 mmol/L) 5.0 Chloride (98 - 107 mmol/L) 95 L Carbon Dioxide (22 - 30 mmol/L) 20 L Anion Gap (5 - 16) 14 BUN (9 - 20 mg/dL) 54 H Creatinine (0.7 - 1.2 mg/dL) 0.8 Estimated GFR (>60 ml/min) > 60 BUN/Creatinine Ratio (7 - 25 %) 67.5 H Glucose (65 - 99 mg/dL) 95 Lactic Acid (0.7 - 2.1 mmol/L) 4.8 H Calcium (8.4 - 10.2 mg/dL) 9.6 Iron (49 - 181 ug/dL) 13 L TIBC (261 - 462 ug/dL) 317 Ferritin (17.9 - 464 ng/mL) 44.0 Total Bilirubin (0.2 - 1.3 mg/dL) 0.6 AST (17 - 59 U/L) 44 ALT (21 - 72 U/L) 45 Alkaline Phosphatase (< 127 U/L) 97 Lactate Dehydrogenase (313 - 618 U/L) 409 Troponin I (<0.11 ng/ml) < 0.01 Total Protein (6.3 - 8.2 g/dL) 6.7 Albumin (3.5 - 5.0 g/dL) 2.8 L Globulin (1.9 - 4.2 gm/dL) 3.9 Albumin/Globulin Ratio (1.1 - 2.2 %) 0.7 L Coagulation PT (9.4 - 12.5 SEC) 13.3 H INR (0.90 - 1.17) 1.27 H Hematology CBC w Diff NO MAN DIFF REQ WBC (4.8 - 10.8 /CUMM) 14.2 H RBC (4.70 - 6.10 /CUMM) 2.57 L Hgb (14.0 - 18.0 G/DL) 7.3 *L Hct (42 - 52 %) 21.9 L MCV (80.0 - 94.0 FL) 85.5 MCH (27.0 - 31.0 PG) 28.5 MCHC (33.0 - 37.0 G/DL) 33.3 RDW (11.5 - 14.5 %) 16.9 H Plt Count (130 - 400 /CUMM) 116 L MPV (7.4 - 10.4 FL) 10.9 H Gran % (42.2 - 75.2 %) 88.2 H Lymphocytes % (20.5 - 51.1 %) 4.2 L Monocytes % (1.7 - 9.3 %) 7.1 Eosinophils % (0 - 5 %) 0.5 Basophils % (0.0 - 2.0 %) 0 Absolute Granulocytes (1.4 - 6.5 /CUMM) 12.6 H Absolute Lymphocytes (1.2 - 3.4 /CUMM) 0.6 L Absolute Monocytes (0.10 - 0.60 /CUMM) 1.0 H Absolute Eosinophils (0.0 - 0.7 /CUMM) 0.1 Absolute Basophils (0.0 - 0.2 /CUMM) 0 Retic Count (0.5 - 2.0 %) 2.74 H
[2017-09-29 13:53] VITALS: BP 118/60
[2017-09-29 17:59] LABS: ABSOLUTE BASOPHIL COUNT 0 /CUMM (0.0-0.2); ABSOLUTE EOSINOPHIL COUNT 0.3 /CUMM (0.0-0.7); ABSOLUTE GRANULOCYTE CT 8.8 /CUMM (1.4-6.5); ABSOLUTE LYMPH COUNT 0.8 /CUMM (1.2-3.4); ABSOLUTE MONOCYTE COUNT 1.1 /CUMM (0.10-0.60); BASOPHIL % 0.3 % (0.0-2.0); EOSINOPHIL % 2.4 % (0-5); GRANULOCYTE % 79.9 % (42.2-75.2); HEMATOCRIT 28.3 % (42-52); MEAN CORPUSCULAR HGB 28.2 PG (27.0-31.0); MEAN CORPUSCULAR HGB CONC 32.5 G/DL (33.0-37.0); MEAN CORPUSCULAR VOLUME 86.7 FL (80.0-94.0); MEAN PLATELET VOLUME 10.3 FL (7.4-10.4); PLATELET COUNT 153 /CUMM (130-400); RBC DISTRIBUTION WIDTH 17.8 % (11.5-14.5); RED BLOOD CELL CT 3.27 /CUMM (4.70-6.10)
[2017-09-29 21:34] VITALS: BP 90/52
[2017-09-30 06:45] VITALS: BP 114/54
--- NOTE | 2017-09-30 07:00 | PN- Housestaff ---
Subjective Follow-up For: Anemia, cirrhosis Subjective: No overnight events. Patient feels good this morning, ready to go to rehab. No CP, SOB, N/V/D or other complaints. Last BM yesterday. He agrees with the plan to follow up with Dr. Malave and Dr. Willis outpatient. Review of Systems Constitutional: Reports: no symptoms. EENTM: Reports: no symptoms. Cardiovascular: Reports: no symptoms. Respiratory: Reports: no symptoms. Gastrointestinal: Reports: no symptoms. Genitourinary: Reports: no symptoms. Musculoskeletal: Reports: no symptoms. Skin: Reports: no symptoms. Neurological/Psychological: Reports: no symptoms. Hematologic/Endocrine: Reports: no symptoms. Immunologic/Allergic: Reports: no symptoms. Objective Last 24 Hrs of Vital Signs/I&O Vital Signs Date Time Temp Pulse Resp B/P B/P Pulse O2 O2 Flow FiO2 Mean Ox Delivery Rate 09/30 0645 97.8 77 19 114/54 98 Room Air 09/29 2134 97.7 76 19 90/52 99 Room Air 09/29 1600 Room Air 09/29 1353 98.1 70 20 118/60 98 Room Air 09/29 1117 Room Air Intake & Output 09/30 0800 09/30 0000 09/29 1600 Intake Total 720 Output Total 450 400 Balance -450 320 Intake, Oral 720 Output, Urine 450 400 Patient 70.76 kg Weight Physical Exam General Appearance: Alert, Oriented X3, Cooperative, No Acute Distress Cardiovascular: Regular Rate, Normal S1, Normal S2 Lungs: heavy breathing Abdomen: distended, nontender Neurological: Normal Speech Extremities: 1+ pitting edema Current Medications: Current Medications Sig/Sidra Start time Last Medication Dose Route Stop Time Status Admin Acetaminophen 325 MG Q6P PRN 09/28 010 AC PO Ferrous Sulfate 325 MG DAILY 09/28 1000 AC 09/29 PO 1008 Insulin Aspart 0 TIDAC 09/28 0800 AC 09/29 SC 1747 Lactulose 15 GM DAILY 09/28 1000 AC 09/29 PO 1009 Rifaximin 550 MG BID 09/28 0100 AC 09/29 PO 2208 Trazodone HCl 100 MG QPM 09/28 0200 AC 09/29 PO 2208 Last 24 Hrs of Lab/Herb Results Last 24 Hrs of Labs/Mics: Laboratory Tests 09/29/17 1700: CBC w Diff NO MAN DIFF REQ, RBC 3.27 L, MCV 86.7, MCH 28.2, MCHC 32.5 L, RDW 17.8 H, MPV 10.3, Gran % 79.9 H, Lymphocytes % 7.2 L, Monocytes % 10.2 H, Eosinophils % 2.4, Basophils % 0.3, Absolute Granulocytes 8.8 H, Absolute Lymphocytes 0.8 L, Absolute Monocytes 1.1 H, Absolute Eosinophils 0.3, Absolute Basophils 0 Assessment/Plan Assessment: 82-year-old male with past history of alcoholic cirrhosis, portal hypertension with gastropathy, esophageal varices status post band ligation,diabetes mellitus with peripheral neuropathy, essential tremors, cholelithiasis, thrombocytopenia and anemia, anxiety, depression, insomnia and inguinal hernia status post surgical repair sent to the emergency department from Dr. Willis's office for low hemoglobin. Problem List: 1. Acute iron deficiency anemia 2. Acute hyponatremia 3. Lactic acidosis 4. Hepatic cirrhosis with esophageal varices and mild portal hypertension 5. Deconditioning #Acute iron deficiency anemia: Patient was sent in by Dr. Willis for symptomatic anemia. Hemoglobin at admission was 7.3. He is status post 1 unit PRBC. His guaiac was positive. Lactic acidosis has resolved. Hg has been stable since. -Monitor CBC, hemoglobin goal greater than 7 -Appreciate GI recommendations -PT evaluation - STR -Continue ferrous sulfate -Follow up with Dr. Malave and Dr. Willis as an outpatient #Deconditioning: Patient has been not eating well and not moving around a lot prior to admission. PT evaluated yesterday and recommended short-term rehabilitation. -Short-term rehabilitation at discharge #Acute hyponatremia: Sodium on admission was 129. Improved to 132. -Continue to monitor #Hepatic cirrhosis with esophageal varices and mild portal hypertension: Compensated. No fevers or chills to suggest SBP at this time. -Continue lactulose and rifaximin #Chronic medical problems: -Continue other home medications DVT prophylaxis with alps Consistent carbohydrate 3 diet Full code Problem List: 1. Cirrhosis Pain Ratin Pain Location: no Pain Goal: Remain pain free Pain Plan: seea/p Tomorrow's Labs & Rationales: no
[2017-09-30 07:47] LABS: ABSOLUTE BASOPHIL COUNT 0 /CUMM (0.0-0.2); ABSOLUTE EOSINOPHIL COUNT 0.3 /CUMM (0.0-0.7); ABSOLUTE GRANULOCYTE CT 6.3 /CUMM (1.4-6.5); ABSOLUTE LYMPH COUNT 0.9 /CUMM (1.2-3.4); BASOPHIL % 0.5 % (0.0-2.0); EOSINOPHIL % 3.4 % (0-5); GRANULOCYTE % 74.5 % (42.2-75.2); HEMATOCRIT 27.9 % (42-52); MEAN CORPUSCULAR HGB 28.2 PG (27.0-31.0); MEAN CORPUSCULAR HGB CONC 32.7 G/DL (33.0-37.0); MEAN CORPUSCULAR VOLUME 86.3 FL (80.0-94.0); MEAN PLATELET VOLUME 9.7 FL (7.4-10.4); PLATELET COUNT 148 /CUMM (130-400); RBC DISTRIBUTION WIDTH 17.5 % (11.5-14.5); RED BLOOD CELL CT 3.23 /CUMM (4.70-6.10); WHITE BLOOD CELL COUNT 8.5 /CUMM (4.8-10.8)
[2017-09-30 10:17] VITALS: BP 114/54
[2017-09-30] MEDS ORDERED: PROPRANOLOL HCL60 M2 PO (10:50)
== END 2017-09-30 11:30 | DRG 812 ==
LOC: ERH 15:18 → ERHI 20:33 → 2NB 20:33 → ENRESERV 22:05 → 2NB 23:21 → ENPENDDIS 09-30 10:10 → ENTRNSPT 09-30 11:08 → EDTRNSPT 09-30 11:21 → EDTRNSPTSTS 09-30 11:21 → 2NB 09-30 11:30 → CMPTRNSPT 09-30 11:40
PROVIDERS: Internal Medicine; Physician Assistant Medical; Student in an Organized Health Care Education/Training Program
PROC: 30233N1 Transfusion of Nonautologous Red Blood Cells into Peripheral Vein, Percutaneous Approach (ICD-10-PCS; principal; 2017-09-27)
DX: D62 Acute posthemorrhagic anemia (principal); D68.9 Coagulation defect, unspecified; D69.59 Other secondary thrombocytopenia; E87.2 Acidosis; E11.42 Type 2 diabetes mellitus with diabetic polyneuropathy; E87.1 Hypo-osmolality and hyponatremia; K92.2 Gastrointestinal hemorrhage, unspecified; K76.6 Portal hypertension; I85.10 Secondary esophageal varices without bleeding; I85.00 Esophageal varices without bleeding; F32.9 Major depressive disorder, single episode, unspecified; E86.0 Dehydration; F10.20 Alcohol dependence, uncomplicated; Z79.84 Long term (current) use of oral hypoglycemic drugs; G25.0 Essential tremor; K31.89 Other diseases of stomach and duodenum; W19.XXXA Unspecified fall, initial encounter; D63.8 Anemia in other chronic diseases classified elsewhere; K70.31 Alcoholic cirrhosis of liver with ascites; G47.00 Insomnia, unspecified; R16.1 Splenomegaly, not elsewhere classified; K80.20 Calculus of gallbladder without cholecystitis without obstruction; R59.1 Generalized enlarged lymph nodes; F41.9 Anxiety disorder, unspecified
CPT/HCPCS: 2NBSP; 84133; 84300; 36415; 36592; 81003; 82436; 82570; 86920; 87804; 87804-59; 96374; 97110-GO; 97116-GO; 97161-GP; 97530-GO; P9016

== ENCOUNTER 2018-01-12 06:19 | Inpatient (IN) | payer OTHER, MEDICARE ==
[~2018-01-12] VITALS: Ht 170.2 cm; Wt 67.2 kg
[~2018-01-12 06:19] MED LIST changes: +ALDACTONE100 M1 PO; +FINASTERIDE5 M1 PO; +FOLBIC RF TABL1 EACH PO; +LACTULOSE10 GM/153 PO; +LASIX40 M1 PO; +PROPRANOLOL HCL60 M2 PO; +XIFAXAN550 M1 PO
--- NOTE | 2018-01-12 06:25 | ED MVC/FALL/TRAUMA COMPLAINT ---
History of Present Illness General Chief Complaint: Fall Stated Complaint: FALL Source: patient Exam Limitations: no limitations Vital Signs & Intake/Output Vital Signs & Intake/Output Vital Signs Date Time Temp Pulse Resp B/P B/P Pulse O2 O2 Flow FiO2 Mean Ox Delivery Rate 01/12 0730 96.7 60 18 110/61 99 Room Air 01/12 0636 92 Room Air 01/12 0620 97.6 60 20 93/44 92 Room Air Allergies Coded Allergies: NO KNOWN ALLERGIES (NONE 12/27/17) Reconcile Medications B12/Levomefolate Calcium/B-6 (Folbic Rf Tablet) 2 MG-1.13 MG-25 MG TABLET 1 TAB PO DAILY Vitamin (Reported) Cholecalciferol (Vitamin D3) 1,000 UNIT TABLET 1 TAB PO DAILY VITAMIN SUPPORT (Reported) Ferrous Sulfate 325 MG (65 MG IRON) TABLET 1 TAB PO DAILY ANEMIA (Reported) Glipizide (Glipizide ER) 2.5 MG TAB.ER.24 1 TAB PO DAILY DM II (Reported) Lactulose 10 GRAM/15 ML SOLUTION 15 ML PO DAILY CONSTIPATION (Reported) Metformin HCl 1,000 MG TABLET 1 TAB PO BID DIABETES (Reported) Propranolol HCl (Propranolol HCl ER) 60 MG CAP.SA.24H 1 CAP PO DAILY Cirrhosis (Reported) Rifaximin (Xifaxan) 550 MG TABLET 1 TAB PO BID Liver (Reported) Trazodone HCl 100 MG TABLET 1 TAB PO QPM SLEEP (Reported) Vit C/E/Zn/Coppr/Lutein/Zeaxan (Preservision Areds 2 Softgel) 250-200-40 CAPSULE 1 TAB PO BID EYE (Reported) Triage Nurses Notes Reviewed? yes Onset: Abrupt Duration: minute(s): Timing: single episode today Severity: mild Injuries/Fall Location: head Method of Injury: fall Loss of Consciousness: no loss of consciousness Modifying Factors: Improves With: rest. Associated Symptoms: headache HPI: 82-year-old gentleman history of alcohol abuse, liver cirrhosis, with varices, presents after a fall from home. Per the medics, he was in his closet reaching up for something, when he fell backwards and hit his head and landed on his elbows. He did not lose consciousness. He is at his usual mental state. He notes a mild headache and multiple skin tears on his elbows and forearms. He states that he has no other pain. He has no neck pain back pain abdominal pain hip pain, or pain in his upper or lower extremities. He notes that he has had frequent falls in the past few days, suffering skin tears of his left forearm from a fall yesterday. He has no fever chills chest pain shortness of breath. His abdomen is distended at its baseline. He is otherwise well. (Guillermo Gonzalez MD) Past History Travel History Traveled to [place] past 21 day No Medical History Any Pertinent Medical History? see below for history Neurological: peripheral neuropathy, essential tremor EENT: cataracts, hearing loss Cardiovascular: NONE Respiratory: NONE Gastrointestinal: Esophageal varices, band ligated Junctional varices Portal hypertensive gastropathy Hepatic: cholelithiasis, cirrhosis Renal: NONE Musculoskeletal: osteoarthritis Psychiatric: alcohol dependence, insomnia Endocrine: diabetes Blood Disorders: thrombocytopenia (cirrhotic) Cancer(s): NONE REHAB CARE ASSISTANT/Reproductive: NONE History of MRSA: No History of VRE: No History of CDIFF: No Tetanus Vaccine: 03/06/17 Surgical History Surgical History: UPPER ENDOSCOPY WITH VARICEAL BANDING. tracheostomy as . INGUINAL HERNIA REPAIRED Psychosocial History Who do you live with Spouse Services at Home None What is your primary language Armenian Tobacco Use: Quit >30 days ago ETOH Use: denies use Illicit Drug Use: denies illicit drug use Family History Family History, If Any: maternal aunt, ; Cause: Alcoholic cirrhosis. Hx Contributory? No (Guillermo Gonzalez MD) Review of Systems Review of Systems Constitutional: Reports: no symptoms. Eyes: Reports: no symptoms. Ears, Nose, Throat, Mouth: Reports: no symptoms. Respiratory: Reports: no symptoms. Cardiovascular: Reports: no symptoms. Gastrointestinal/Abdominal: Reports: no symptoms. Genitourinary: Reports: no symptoms. Musculoskeletal: Reports: no symptoms. Skin: Reports: no symptoms. Neurological/Psychological: Reports: no symptoms. All Other Systems: Reviewed and Negative (Guillermo Gonzalez MD) Physical Exam Physical Exam General Appearance: well developed/nourished, alert, awake, mild distress Head: atraumatic, normal appearance Eyes: Bilateral: normal appearance, PERRL, EOMI, other (pINpOINT PUPILS). Ears, Nose, Throat, Mouth: hearing grossly normal, dental injury, moist mucous membrane Neck: normal inspection, supple, full range of motion, no midline tenderness Respiratory: normal breath sounds, chest non-tender, no respiratory distress, quiet respiration, lungs clear Cardiovascular: regular rate/rhythm Gastrointestinal: normal bowel sounds, soft, MILD DISTENTION WITH AN UMBILICAL HERNIA EASILY REDUCIBLE. Extremities: MULTIPLE SKIN TEARS ON BILATERAL FOREARMS, WITHOUT FOCAL BONY TENDERNESS OR DEFORMITY. Neurologic/Psych: no motor/sensory deficits, awake, AXO X 2 (KNOWS NAME, PLACE, NOT DAY (BUT DOES KNOW YEAR)) MILD TREMOR, BUT NO SIGNIFICANT ASTERIXIS. Core Measures ACS in differential dx? No CVA/TIA Diagnosis No Sepsis Present: No Sepsis Focused Exam Completed? No (Carlos VAZQUEZ,Guillermo Maldonado) Progress Differential Diagnosis: C/T/L spine injury, ext injury, ICH Plan of Care: Orders Procedure Date/time Status PT Evaluate & Treat 01/13 628 Active CASE MANAGEMENT CONSULT 01/13 628 Active XRY-WRIST 2 VIEWS RIGHT 01/12 627 Active XRY-WRIST 2 VIEWS LEFT 01/12 627 Active XRY-AP PELVIS 01/12 627 Active XRY-FOREARM, RIGHT 01/12 627 Active XRY-FOREARM, LEFT 01/12 627 Active XRY-ELBOW 3 OR MORE VIEWS, R 01/12 627 Active XRY-ELBOW 3 OR MORE VIEWS, L 01/12 627 Active XRY-CHEST XRAY, SINGLE VIEW 01/12 627 Active URINE DRUG SCREEN FOR ER ONLY 01/12 627 Active URINALYSIS 01/12 627 Active TROPONIN LEVEL 01/12 627 Complete PARTIAL THROMBOPLASTIN TIME 01/12 627 Complete PROTHROMBIN TIME 01/12 627 Complete LIPASE 01/12 627 Complete HEPATIC FUNCTION PANEL 01/12 627 Complete ETHANOL 01/12 627 Complete CBC WITHOUT DIFFERENTIAL 01/12 627 Complete BASIC METABOLIC PANEL 01/12 627 Complete AMYLASE 01/12 627 Complete EKG 01/12 627 Active Laboratory Tests 01/12/18 0645: Anion Gap 10, Estimated GFR > 60, BUN/Creatinine Ratio 37.8 H, Glucose 86, Calcium 10.6 H, Total Bilirubin 2.1 H, Direct Bilirubin 1.0 H, AST 66 H, ALT 41, Alkaline Phosphatase 154 H, Troponin I < 0.01, Total Protein 6.6, Albumin 2.7 L, Amylase 45, Lipase 139, PT 13.8 H, INR 1.26 H, APTT 30, CBC w Diff NO MAN DIFF REQ, RBC 3.14 L, MCV 86.4, MCH 29.1, MCHC 33.7, RDW 22.6 H, MPV 9.8, Gran % 83.6 H, Lymphocytes % 6.2 L, Monocytes % 10.2 H, Eosinophils % 0, Basophils % 0, Absolute Granulocytes 10.4 H, Absolute Lymphocytes 0.8 L, Absolute Monocytes 1.3 H, Absolute Eosinophils 0, Absolute Basophils 0, Serum Alcohol < 10.0 Diagnostic Imaging: Viewed by Me: Radiology Read, CT Scan. Discussed w/RAD: Radiology Read, CT Scan. Initial ED EKG: NSR, NO ACUTE CHANGES Hand-Off Endorsed To: Vernon Hirsch DO Endorsed Time: 0700 Pending: CT, labs, Xray (Carlos VAZQUEZ,Guillermo Maldonado) Hand-Off Endorsed To: Vernon Hirsch DO Comments: I assumed care of this patient from Dr. Gonzalez at shift change. We were awaiting laboratory studies, CT scans, and case management consultation. Laboratory studies show bilirubin elevation in the context of liver disease, but no other acute abnormalities. CT scans were negative for trauma. Patient was ambulated but failed. Admitted for further treatment and possible placement. (Vernon Hirsch DO) Departure Departure Disposition: STILL A PATIENT Clinical Impression Primary Impression: Fall Secondary Impressions: Abrasions of multiple sites, Head injury Referrals: Tasih VAZQUEZ,Anurag Zuniga (PCP/Family) Departure Forms: Customer Survey General Discharge Information Comments 01/12/18, 6:48.... pt comfortable in ED, without focal tenderness, but with multiple abrasions... given his recurrent falls and underlying comorbidity, pt merits PT eval/case management... labs/images pending... pt to be singed out to dr. hirsch at 7am. (Carlos VAZQUEZ,Guillermo Maldonado) Departure Time of Disposition: 952 Condition: Guarded Admission Note Spoke With: Marcy Thomson MD Documentation of Exam: Documentation of any treatments & extenuating circumstances including Concerns Regarding Discharge (functional status, medication knowledge or non-compliance, living conditions, etc.) that warrant an admission rather than observation: Patient with chronic alcoholism and abdominal pain and discomfort with distention reportedly no ascites found on prior imaging with plans for a CT ordered by Dr. Malave, presented overnight for profound weakness after a fall with head and cervical spine injury. I explained care from Dr. Gonzalez at the time of shift change awaiting studies. Thankfully, CT of the head and cervical spine showed no obvious trauma. Laboratory studies showed no acute abnormalities, but the patient's weakness was profound. We attempted to ambulate him, but he was unable to even sit up in his bed alone but alone stand or ambulate safely. I feel that he represents an unacceptably high fall risk and given his alcoholism and advanced age, he is at an even higher risk for intracranial hemorrhage than the general population. He will require gentle fluid rehydration, GI consultation, physical therapy evaluation, and possibly even placement in acute rehabilitation. Admitted to the hospital for these reasons, with admitting diagnoses of profound weakness, gait dysfunction, fall risk, and unsafe discharge. (Harris BECKFORD,Vernon)
[2018-01-12 07:18] LABS: ABSOLUTE BASOPHIL COUNT 0 /CUMM (0.0-0.2); ABSOLUTE EOSINOPHIL COUNT 0 /CUMM (0.0-0.7); ABSOLUTE GRANULOCYTE CT 10.4 /CUMM (1.4-6.5); ABSOLUTE LYMPH COUNT 0.8 /CUMM (1.2-3.4); ABSOLUTE MONOCYTE COUNT 1.3 /CUMM (0.10-0.60); BASOPHIL % 0 % (0.0-2.0); EOSINOPHIL % 0 % (0-5); GRANULOCYTE % 83.6 % (42.2-75.2); HEMATOCRIT 27.1 % (42-52); MEAN CORPUSCULAR HGB 29.1 PG (27.0-31.0); MEAN CORPUSCULAR HGB CONC 33.7 G/DL (33.0-37.0); MEAN CORPUSCULAR VOLUME 86.4 FL (80.0-94.0); MEAN PLATELET VOLUME 9.8 FL (7.4-10.4); PLATELET COUNT 110 /CUMM (130-400); RBC DISTRIBUTION WIDTH 22.6 % (11.5-14.5); RED BLOOD CELL CT 3.14 /CUMM (4.70-6.10); WHITE BLOOD CELL COUNT 12.5 /CUMM (4.8-10.8)
[2018-01-12 07:29] LABS: PT 13.8 SEC (9.4-12.5)
[2018-01-12 07:30] LABS: PTT 30 SEC (25-37)
--- NOTE | 2018-01-12 07:50 | CT SCAN REPORT ---
EXAMINATION: CT HEAD AND CT CERVICAL SPINE. CLINICAL INFORMATION: Trauma. COMPARISON: None TECHNIQUE: 5 mm thin axial images of brain were obtained without contrast. Subsequently 2.5 minutes and axial and reformatted 2.5 minutes and coronal images of brain were obtained without contrast. DLP 938. FINDINGS: BRAIN: There is no acute intra-axial, extra-axial bleed, collection, masses or midline shift. The [place] to white matter differentiation is maintained. There is mild dilatation of lateral ventricles and prominence of cerebral cortical sulci suggestive of mild cerebral atrophy. Mild periventricular hypodensity seen in the subcortical white matter of both cerebral hemispheres. Bone windows reveal well-aerated bilateral paranasal sinuses and mastoid air cells. No calvarial abnormality. No scalp soft tissue swelling seen. CERVICAL SPINE: On sagittal reconstructed images there is normal cervical lordosis. The vertebral heights and alignment is normal. There is loss of C2-C3, C3-C4, C4-C5, C5-C6 disc heights with mild ventral and posterior spondylosis. There is no visible acute fracture, dislocation or lytic process seen. There is mild right C3-C4 and left C4-C5 significant facet joint arthropathy. Mild facet joint arthropathy seen at rest off the disc levels. There is no visible acute fracture, dislocation or subluxation. The prevertebral and paravertebral soft tissues are unremarkable. The airway is widely patent. The lung apices are clear. IMPRESSION: No acute intracranial process seen. Age-related mild cerebral atrophy and chronic small vessel ischemic changes in subcortical white matter of both cerebral hemispheres. There is no acute fracture or dislocation cervical spine. There are degenerative disc changes C2-C3 through C6-C7 disc level with moderate ventral and posterior spondylosis.
--- NOTE | 2018-01-12 10:04 | RADIOLOGY REPORT ---
EXAMINATION: XR BILATERAL WRIST XR BILATERAL ELBOW XR BILATERAL FOREARM XR CHEST AND AP PELVIS CLINICAL INFORMATION: Trauma. COMPARISON: None TECHNIQUE: 2 views each wrist, 3 views each elbow, 2 views each forearm, 1 view chest and one view AP pelvis. FINDINGS: RIGHT WRIST: There is no visible acute fracture or dislocation. There is a negative ulnar variance. LEFT WRIST: There is no visible acute fracture, dislocation or lytic process. RIGHT ELBOW: There is a small olecranon process spur. No visible fracture or dislocation seen. No evidence of joint effusion noted. LEFT ELBOW: There is a moderate size olecranon process spur. No visible fracture or dislocation seen. There is no joint effusion noted. RIGHT FOREARM: There is no visible acute fracture or dislocation seen. LEFT FOREARM: There is no visible acute fracture or dislocation noted. CHEST EXAM: Both lungs are well-expanded and clear of acute process. No pleural effusion or pneumothorax. The heart size and pulmonary vascularity is normal. No gross bony abnormality seen. PELVIS: There is normal symmetry of bilateral SI joints and hip joints without any visible fracture or dislocation. The soft tissues are unremarkable. There is a radiopaque density in the pelvis question phlebolith versus bladder calculi. IMPRESSION: No visible fracture or dislocation involving bilateral wrist, forearm or the elbows. No acute cardiopulmonary process seen in the chest. There is no visible acute fracture or dislocation AP pelvis.
--- NOTE | 2018-01-12 10:05 | RADIOLOGY REPORT ---
EXAMINATION: XR PELVIS CLINICAL INFORMATION: Trauma. FINDINGS/IMPRESSION: See bilateral wrist, bilateral forearm and bilateral elbow exam for pelvis results
--- NOTE | 2018-01-12 13:11 | Admission Certification ---
Admission Certification Certification Statement - As attending physician, I certify that at the time of - admission, based on clinical presentation, severity of - symptoms, need for further diagnostic testing and - therapeutic interventions, and risk of adverse outcomes - without in-hospital treatment, in my clinical assessment, - this patient requires an acute hospital stay for a minimum - of two nights or longer. I have also considered psychsocial - factors such as support system, advanced age, financial - issues, cognitive issues, and failed out-patient treatments, - past re-admission history, safety of patient, and lack of - compliance as applicable. Specific rationale supporting this admission is: fall initial encounter with gait instability and bruises for evaluation of recurrent falls.
--- NOTE | 2018-01-12 13:43 | ULTRASOUND REPORT ---
EXAMINATION: US ABDOMEN LIMITED CLINICAL INFORMATION: Rule out biliary pathology. High bilirubin and alkaline phosphatase. COMPARISON: CT of the abdomen and pelvis 09/10/2017. Abdominal ultrasound 12/27/2017. TECHNIQUE: Real-time imaging of the right upper quadrant abdominal viscera. FINDINGS: PANCREAS: Visualized portions appear normal. The tail was not seen. LIVER: Morphologic changes of cirrhosis with nodularity and heterogeneous echotexture. No focal mass identified. GALLBLADDER: Intraluminal calculi are present. Marked wall thickening measuring 17 mm. There is pericholecystic fluid. No sonographic Tsai sign. COMMON BILE DUCT: Normal in caliber measuring 0.6 cm in diameter. RIGHT KIDNEY: Normal. No hydronephrosis. No renal calculi or focal parenchymal lesions. The kidney measures 10.8 cm in maximum dimension. FREE FLUID: Moderate amount of ascites is present. IMPRESSION: - The gallbladder demonstrates intraluminal calculi, marked wall thickening, and pericholecystic fluid. No sonographic Tsai sign was present. These findings may be at least partly secondary to cirrhosis with portal hypertension. Clinical correlation is needed. - Cirrhosis with moderate edema.
--- NOTE | 2018-01-12 13:58 | History & Physical ---
Jarret Fitzgerald 01/12/18 1340: General Information and HPI MD Statement: I have seen and personally examined PEDRO MYERS and documented this H&P. The patient is a 82 year old M who presented with a patient stated chief complaint of fall. Source of Information: patient Exam Limitations: no limitations History of Present Illness: 82-year-old man with past medical history of alcoholic cirrhosis, portal hypertension with gastropathy, esophageal varices, diabetes with peripheral neuropathy, essential tremors, cholelithiasis, thrombocytopenia, anemia, anxiety depression presented to [facility] ED after sustaining a fall this morning. Patient was trying to reach up for something in his closet, when he fell backwards and hit his head, landing on his elbows. He denied any loss of consciousness. He denied any near the prodromal symptoms or any seizure-like activity. He denied any lightheadedness or dizziness. He does endorse to very little appetite and has been losing a lot of weight, roughly 40 pounds in last 6 months. He came in with a mild headache, which has now resolved. His head CT in the ED was unremarkable. In the ED, he was noted to have multiple skin tears on his elbows and forearms. He denies pain anywhere in the body. He does note that he has had increasing number of falls in the last few weeks, thus sustaining skin tears bilaterally on his forearms. He has no fevers, chills, shortness of breath. He denies any constipation, but does admit to intermittent diarrhea. Systems reviewed and negative, exceptions above. Allergies/Medications Allergies: Coded Allergies: NO KNOWN ALLERGIES (NONE 12/27/17) Past History Travel History Traveled to [place] past 21 day No Medical History Neurological: peripheral neuropathy, essential tremor EENT: cataracts, hearing loss Cardiovascular: NONE Respiratory: NONE Gastrointestinal: Esophageal varices, band ligated Junctional varices Portal hypertensive gastropathy Hepatic: cholelithiasis, cirrhosis Renal: NONE Musculoskeletal: osteoarthritis Psychiatric: alcohol dependence, insomnia Endocrine: diabetes Blood Disorders: thrombocytopenia (cirrhotic) Cancer(s): NONE [employer] MAGISTRATE/Reproductive: NONE History of MRSA: No History of VRE: No History of CDIFF: No Tetanus Vaccine: 03/06/17 Surgical History Surgical History: UPPER ENDOSCOPY WITH VARICEAL BANDING. tracheostomy as infant. INGUINAL HERNIA REPAIRED Past Family/Social History Family History Relations & Conditions if any maternal aunt, ; Cause: Alcoholic cirrhosis. Psychosocial History Who Do You Live With? spouse Services at Home: None Primary Language: Mosotho ETOH Use: denies use Illicit Drug Use: denies illicit drug use Living Will? full code Power of Music Leader/HCP? unknown Functional Ability ADLs Independent: dressing, eating, toileting, bathing. Ambulation: independent IADLs Independent: shopping, housework, finances, food prep, telephone, transportation , medication admin. Review of Systems Review of Systems Constitutional: Reports: see HPI. Exam & Diagnostic Data Last 24 Hrs of Vital Signs/I&O Vital Signs Date Time Temp Pulse Resp B/P B/P Pulse O2 O2 Flow FiO2 Mean Ox Delivery Rate 01/12 1052 97.2 62 17 108/64 100 Room Air 01/12 0730 96.7 60 18 110/61 99 Room Air 01/12 0636 92 Room Air 01/12 0620 97.6 60 20 93/44 92 Room Air Intake & Output 01/12 1600 01/12 0800 01/12 0000 Intake Total 500 Output Total Balance 500 Intake, IV 500 Intake, Oral 0 Patient 143 lb Weight Weight Reported by Patient Measurement Method Physical Exam General Appearance Alert, Oriented X3, Mild Distress HEENT Atraumatic, PERRLA, EOMI Neck Supple, No JVD Cardiovascular Regular Rate, Normal S1, Normal S2 Lungs Clear to Auscultation, Normal Air Movement Abdomen Normal Bowel Sounds, Soft, Mild tenderness to deep palpation in RUQ. Extremities No Clubbing, No Cyanosis, No Edema Last 24 Hrs of Labs/Herb: Laboratory Tests 01/12/18 0645: Anion Gap 10, Estimated GFR > 60, BUN/Creatinine Ratio 37.8 H, Glucose 86, Calcium 10.6 H, Phosphorus 2.8, Total Bilirubin 2.1 H, Direct Bilirubin 1.0 H , AST 66 H, ALT 41, Alkaline Phosphatase 154 H, Troponin I < 0.01, Total Protein 6.6, Albumin 2.7 L, Amylase 45, Lipase 139, Vitamin B12 > 1000 H, 25- OH Vitamin D Total 36.7, TSH 3.080, PT 13.8 H, INR 1.26 H, APTT 30, CBC w Diff NO MAN DIFF REQ, RBC 3.14 L, MCV 86.4, MCH 29.1, MCHC 33.7, RDW 22.6 H, MPV 9.8, Gran % 83.6 H, Lymphocytes % 6.2 L, Monocytes % 10.2 H, Eosinophils % 0, Basophils % 0, Absolute Granulocytes 10.4 H, Absolute Lymphocytes 0.8 L, Absolute Monocytes 1.3 H, Absolute Eosinophils 0, Absolute Basophils 0, Serum Alcohol < 10.0 Microbiology 01/12 1243 URINE ROUT: Urine Culture - COLB Diagnostic Data EKG Results Sinus rhythm CXR Results IMPRESSION: No visible fracture or dislocation involving bilateral wrist, forearm or the elbows. No acute cardiopulmonary process seen in the chest. There is no visible acute fracture or dislocation AP pelvis. Other Results IMPRESSION: - The gallbladder demonstrates intraluminal calculi, marked wall thickening, and pericholecystic fluid. No sonographic Tsai sign was present. These findings may be at least partly secondary to cirrhosis with portal hypertension. Clinical correlation is needed. - Cirrhosis with moderate edema. Assessment/Plan Assessment: 82-year-old gentleman with multiple comorbidities, including but not limited to, alcoholic cirrhosis, esophageal varices, portal hypertension, diabetes with microvascular complications, cholelithiasis, long-standing anemia presents to [facility] ED after sustaining a fall while he was reaching out in his closet to get something. 1. Fall. Head CT negative. This could be secondary to imbalance or what is known as vertebrobasilar insufficiency, sometimes referred to as beauty parlor syndrome. Usually happens with hyperextension of the neck due to decrease in blood flow in posterior circulation of brain. This can happen in the setting of dehydration, patient does endorse to decreased appetite and decreased oral intake. Already got normal saline in the ED. Normal saline 1 more bag 1. We will get nutrition consult. Encourage Ensure intake. Please check phosphorus levels. Vitamin B12, vitamin D and TSH levels within normal limits. Check orthostatics. Physical therapy evaluation. 2. Hypercalcemia. Corrected calcium for low albumin 11.7. Will provide hydration 1 bag. We will check intact PTH. Please check magnesium levels. 3. Hyperbilirubinemia. Transaminitis. Elevated alk phos. Abdominal ultrasound obtained, demonstrates intraluminal calculi along with wall thickening as well as pericholecystic fluid. All these findings can be explained by cirrhosis with portal hypertension, especially in the setting of no physical or sonographic Tsai sign. Continue to monitor liver enzymes closely. 4. Leukocytosis. Perhaps due to hemoconcentration from dehydration. Rule out infection, check urinalysis. Unremarkable chest x-ray. Afebrile, and no sonographic evidence of bile duct pathology. Monitor for fevers. Afebrile, may need para to rule out infection. 5. Chronic anemia and thrombocytopenia. Continue to monitor. Will hold heparin products for now. 6. Essential tremor. Continue propranolol. Hold for SBP <100. 7. Diabetes. Accu-Cheks and sliding scale. DNR/DNI. Alps for DVT prophylaxis. Regular diet-nutrition consult-mechanical chopping and pureed Diet until swallow evaluation. As Ranked By This Provider Problem List: 1. Thrombocytopenia 2. Cirrhosis Core Measures/Misc (05/02) Acute Coronary Syndrome ACS Diagnosis: No Congestive Heart Failure Congestive Heart Failure Diagnosis No Cerebrovascular Accident CVA/TIA Diagnosis: No VTE (View Protocol) VTE Risk Factors Acute Medical Illness No Mechanical VTE Prophylaxis d/t N/A MechProphylax Ordered No VTE Pharm Prophylaxis d/t Platelets below ref range Sepsis (View protocol) Sepsis Present: No If YES complete Sepsis Event Note If YES complete Sepsis Event Note Luis Gill 01/12/18 1418: General Information and HPI Allergies/Medications Home Med list B12/Levomefolate Calcium/B-6 (Folbic Rf Tablet) 2 MG-1.13 MG-25 MG TABLET 1 TAB PO DAILY Vitamin (Reported) Cholecalciferol (Vitamin D3) 1,000 UNIT TABLET 1 TAB PO DAILY VITAMIN SUPPORT (Reported) Doxazosin Mesylate (Cardura) 4 MG TABLET 1 TAB PO DAILY BPH (Reported) Ferrous Sulfate 325 MG (65 MG IRON) TABLET 1 TAB PO DAILY ANEMIA (Reported) Furosemide (Lasix) 40 MG TABLET 1 TAB PO DAILY Fluid (Reported) Glipizide (Glipizide ER) 2.5 MG TAB.ER.24 1 TAB PO DAILY DM II (Reported) Lactulose 10 GRAM/15 ML SOLUTION 15 ML PO DAILY CONSTIPATION (Reported) Metformin HCl 1,000 MG TABLET 1 TAB PO BID DIABETES (Reported) Propranolol HCl (Propranolol HCl ER) 60 MG CAP.SA.24H 1 CAP PO DAILY Cirrhosis (Reported) Rifaximin (Xifaxan) 550 MG TABLET 1 TAB PO BID Liver (Reported) Spironolactone (Aldactone) 100 MG TABLET 1 TAB PO DAILY Fluid (Reported) Trazodone HCl 100 MG TABLET 1 TAB PO QPM SLEEP (Reported) Vit C/E/Zn/Coppr/Lutein/Zeaxan (Preservision Areds 2 Softgel) 250-200-40 CAPSULE 1 TAB PO BID EYE (Reported) Core Measures/Misc (05/02) Sepsis (View protocol) If YES complete Sepsis Event Note If YES complete Sepsis Event Note Attending MD Review Statement Attending Statement Attending MD Statement: examined this patient, discuss w/resident/PA/BLOCK MAKING MACHINE OPERATOR, agreed w/resident/PA/BLOCK MAKING MACHINE OPERATOR, reviewed EMR data (avail) Attending Assessment/Plan: 82-year M with PMH alcoholic cirrhosis secondary to ETOH with portal hypertension with gastropathy and esophageal varices, diabetes with peripheral neuropathy, essential tremors, cholelithiasis, thrombocytopenia, anemia, anxiety depression and recurrent falls recently presented to ER after sustaining a fall this morning while trying to take something out of the closet. Pt fell backwards and hit his head and scraped his elbows. Pt is being admitted for workup of recurrent falls. Review of his labs show baseline anemia and thrombocytopenia with mild leukocytosis. Pt denies any fever or chills or any resp symptoms. Head CT and Cervical spine CT done shows- "Age-related mild cerebral atrophy and chronic small vessel ischemic changes in subcortical white matter of both cerebral hemispheres. There is no acute fracture or dislocation cervical spine. " Will get PT consult for evaluation of gait issues and will also recheck his calcium level given high level at admission. will check TSH, Vit B12 level .
[2018-01-12] MEDS ORDERED: ALDACTONE100 M1 PO (16:23)
[2018-01-12] MEDS ORDERED: LASIX40 M1 PO (16:23)
[2018-01-12] MEDS ORDERED: CARDURA4 M1 PO (16:25)
[2018-01-12 17:31] VITALS: BP 100/42
[2018-01-12 22:05] VITALS: BP 90/48
[2018-01-13 06:30] VITALS: BP 98/52
[2018-01-13 08:31] LABS: ABSOLUTE BASOPHIL COUNT 0 /CUMM (0.0-0.2); ABSOLUTE EOSINOPHIL COUNT 0 /CUMM (0.0-0.7); ABSOLUTE GRANULOCYTE CT 9.4 /CUMM (1.4-6.5); ABSOLUTE LYMPH COUNT 0.8 /CUMM (1.2-3.4); ABSOLUTE MONOCYTE COUNT 1.2 /CUMM (0.10-0.60); BASOPHIL % 0.2 % (0.0-2.0); EOSINOPHIL % 0.2 % (0-5); GRANULOCYTE % 82.1 % (42.2-75.2); MEAN CORPUSCULAR HGB 29.2 PG (27.0-31.0); MEAN CORPUSCULAR HGB CONC 33.5 G/DL (33.0-37.0); MEAN CORPUSCULAR VOLUME 87.2 FL (80.0-94.0); MEAN PLATELET VOLUME 9.9 FL (7.4-10.4); PLATELET COUNT 97 /CUMM (130-400); RBC DISTRIBUTION WIDTH 23.4 % (11.5-14.5); RED BLOOD CELL CT 2.87 /CUMM (4.70-6.10); WHITE BLOOD CELL COUNT 11.4 /CUMM (4.8-10.8)
--- NOTE | 2018-01-13 08:33 | PN- Housestaff ---
See Addendum Subjective Follow-up For: Mechanical fall. Hypercalcemia Hyperbilirubinemia Subjective: Feels better than yesterday. Still fatigued and tired. Complains of dry mouth. No fevers or chills overnight. No lightheadedness or dizziness. Review of Systems Constitutional: Reports: see HPI. Objective Last 24 Hrs of Vital Signs/I&O Vital Signs Date Time Temp Pulse Resp B/P B/P Pulse O2 O2 Flow FiO2 Mean Ox Delivery Rate 01/13 630 98.0 67 20 98/52 95 Room Air 01/12 2205 98.1 72 20 90/48 95 Room Air 01/12 1731 97.8 61 20 100/42 97 Room Air 01/12 1526 97.9 68 18 123/58 98 Room Air 01/12 1431 97.6 60 18 92/54 96 Room Air 01/12 1423 97.7 69 18 93/48 01/12 1052 97.2 62 17 108/64 100 Room Air Intake & Output 01/13 1600 01/13 0800 01/13 0000 Intake Total 840 300 Output Total 250 Balance 590 300 Intake, IV 600 300 Intake, Oral 240 Output, Urine 250 Patient 140 lb Weight Weight Bed scale Measurement Method Physical Exam General Appearance: Alert, Oriented X3, Cooperative HEENT: Mucous membranes dry. Cardiovascular: Regular Rate, Normal S1, Normal S2 Lungs: Clear to Auscultation, Normal Air Movement Abdomen: Normal Bowel Sounds, Soft, No Tenderness Extremities: No Clubbing, No Cyanosis, No Edema Current Medications: Current Medications Sig/Sidra Start time Last Medication Dose Route Stop Time Status Admin Cholecalciferol 1,000 IU DAILY 01/13 09 CAN PO Ferrous Sulfate 325 MG DAILY 01/13 0900 AC PO Insulin Aspart 0 TIDAC 01/12 1700 AC SC Lactulose 10 GM DAILY PRN 01/12 1245 AC PO Propranolol HCl 60 MG DAILY 01/12 1241 AC PO Rifaximin 550 MG BID 01/12 2100 AC 01/12 PO 2026 Sodium Chloride 1,000 ML Q13H 01/13 0845 AC IV 01/13 2144 Sodium Chloride 1,000 ML Q13H 01/12 1500 DC 01/12 IV 01/13 0359 1538 Trazodone HCl 100 MG QPM 01/12 2100 AC 01/12 PO 2026 Last 24 Hrs of Lab/Herb Results Last 24 Hrs of Labs/Mics: Laboratory Tests 01/13/18 0710: Sodium Pending, Potassium Pending, Chloride Pending, Carbon Dioxide Pending, Anion Gap Pending, BUN Pending, Creatinine Pending, BUN/Creatinine Ratio Pending , Calcium Pending, Total Bilirubin Pending, Direct Bilirubin Pending, AST Pending, ALT Pending, Alkaline Phosphatase Pending, Total Protein Pending, Albumin Pending, CBC w Diff NO MAN DIFF REQ, RBC 2.87 L, MCV 87.2, MCH 29.2, MCHC 33.5, RDW 23.4 H, MPV 9.9, Gran % 82.1 H, Lymphocytes % 6.8 L, Monocytes % 10.7 H, Eosinophils % 0.2, Basophils % 0.2, Absolute Granulocytes 9.4 H, Absolute Lymphocytes 0.8 L, Absolute Monocytes 1.2 H, Absolute Eosinophils 0, Absolute Basophils 0 01/13/18 0600: Prot Electrophoresis Pending, Total Protein (PEP) Pending, Albumin % (PEP) Pending, Dincn-0-Cyfgofemh Pending, Tuqao-6-Blraamxbn Pending, Befy-8-Wepcygad Pending, Muve-4-Thctxilq Pending, Gamma Globulins Pending, Abnorm Protein Band 1 Pending, Abnorm Protein Band 2 Pending, Abnorm Protein Band 3 Pending 01/12/18 1639: Urine Opiates Screen < 100, Methadone Screen < 40, Barbiturate Screen < 60, Ur Phencyclidine Scrn < 6.00, Amphetamines Screen < 100, U Benzodiazepines Scrn < 85, Urine Cocaine Screen < 50, Urine Cannabis Screen < 5.00, Urine Color YEL, Urine Clarity CLEAR, Urine pH 6.0, Ur Specific Seymour 1.020, Urine Protein NEG, Urine Ketones TRACE H, Urine Nitrite NEG, Urine Bilirubin NEG, Urine Urobilinogen 2.0 H, Ur Leukocyte Esterase NEG, Ur Microscopic EXAM NOT REQUIRED , Urine Hemoglobin NEG, Urine Glucose NEG Microbiology 01/12 1639 URINE ROUT: Urine Culture - RECD Assessment/Plan Assessment: 82-year-old gentleman with multiple comorbidities, including but not limited to, alcoholic cirrhosis, esophageal varices, portal hypertension, diabetes with microvascular complications, cholelithiasis, long-standing anemia presents to [facility] ED after sustaining a fall while he was reaching out in his closet to get something. 1. Fall. Head CT unremarkable except for age-related mild cerebral atrophy and chronic small vessel ischemic disease. His fall is likely secondary to dehydration and concomitant mild vertebrobasilar insufficiency from decreased blood flow to posterior circulation(compounded by hyperextension of the neck while reaching out for staff in his closet). Continue gentle hydration. Hold spironolactone and Lasix. Continue holding doxazosin (alpha-1 anastacio). Await nutrition consult and recommendations. Evaluated by speech therapy-recommend MBS. Physical and occ therapy evaluation. 2. Hypercalcemia. Corrected calcium for low albumin 11.7. Will provide hydration 1 bag. We will check intact PTH. Please check magnesium levels. Low Mg noted. Hypermagnesemia suppresses the release of PTH. Here we have low Mg , which should cause hypocalcemia. Hence, one can postulate that his degree of Hypercalcemia may infact be more profound. Given PTH independent process, will check PTHrP. New onset back pain. Check SPEP, UPEP (Combined Sensitivity for MM-93%) Pending above, will check 1,25 calcium levels. Continue hydration. 3. Hyperbilirubinemia. Transaminitis. Elevated alk phos. Abdominal ultrasound obtained, demonstrates intraluminal calculi along with wall thickening as well as pericholecystic fluid. All these findings can be explained by cirrhosis with portal hypertension, especially in the setting of no physical or sonographic Tsai sign. Continue to monitor liver enzymes closely. Stable today. 4. Leukocytosis. Perhaps due to hemoconcentration from dehydration. Rule out infection, negative urinalysis. Unremarkable chest x-ray. Afebrile, and no sonographic evidence of bile duct pathology. Monitor for fevers. If febrile or becomes confused, may need para to rule out infection. 5. Chronic anemia and thrombocytopenia. Continue to monitor. Will hold heparin products for now. 6. Essential tremor. Continue propranolol. Hold for SBP <100. 7. Diabetes. Accu-Cheks and sliding scale. FSGs accepatable 140-180. Encourage oral intake, await nutrition recommendation. DNR/DNI. Alps for DVT prophylaxis. Regular diet-Purre and Honey thick liquids for now. Problem List: 1. Thrombocytopenia 2. Acute blood loss anemia Pain Ratin Pain Location: Back Pain Goal: Remain pain free Pain Plan: PRN Tomorrow's Labs & Rationales: Acutely ill
--- NOTE | 2018-01-13 11:36 | RADIOLOGY REPORT ---
EXAMINATION: XR MODIFIED BARIUM SWALLOW CLINICAL INFORMATION: Aspiration risk. COMPARISON: None. TECHNIQUE: A modified barium swallow was performed with speech pathologist in attendance. Pur?e, honey thick, nectar thick and thin barium consistencies were given to the patient and the swallowing mechanism was observed fluoroscopically with several spot films taken. 20 images were obtained. FLUOROSCOPY TIME: 3 minutes and 37 seconds. FINDINGS: On swallowing puree, there was significant pooling in the vallecula, which persisted despite multiple prior swallows. Pooling was also noted with honey and nectar. The patient was given thin barium by teaspoon, which demonstrated some pooling in the vallecula. When given thin barium by cup, penetration without aspiration was demonstrated. IMPRESSION: 1.There was significant pooling in the vallecula on swallowing puree, honey and nectar. 2. Penetration without aspiration was noted when swallowing thin barium by cup. Speech pathologist assessment issued separately.
[2018-01-13 22:50] VITALS: BP 119/50
[2018-01-14 06:05] VITALS: BP 123/49
--- NOTE | 2018-01-14 08:48 | PN- Housestaff ---
See Addendum Subjective Follow-up For: Mechanical fall. Hypercalcemia Hyperbilirubinemia Subjective: Feels about the same. Still fatigued and tired. Had discussion about his inability to swallow, and the need for NG tube placement for nutritional maintenance. He is not ready for this and wants to discuss this with his . Complains of dry mouth. No fevers or chills overnight. No lightheadedness or dizziness. Review of Systems Constitutional: Reports: see HPI. Objective Last 24 Hrs of Vital Signs/I&O Vital Signs Date Time Temp Pulse Resp B/P B/P Pulse O2 O2 Flow FiO2 Mean Ox Delivery Rate 01/14 605 97.7 73 20 123/49 95 Room Air 01/13 2250 97.8 82 20 119/50 92 Intake & Output 01/14 1600 01/14 0800 01/14 0000 Intake Total 600 600 Output Total 420 Balance 600 180 Intake, IV 600 600 Output, Urine 420 Patient 148 lb Weight Physical Exam General Appearance: Alert, Oriented X3, Cooperative HEENT: Atraumatic, PERRLA, EOMI, Mucous membranes extremely dry. Cardiovascular: Regular Rate, Normal S1, Normal S2 Lungs: Clear to Auscultation, Normal Air Movement Abdomen: Normal Bowel Sounds, Soft, Distended Extremities: No Clubbing, No Cyanosis, No Edema Current Medications: Current Medications Sig/Sidra Start time Last Medication Dose Route Stop Time Status Admin Dextrose/Sodium 1,000 ML Q13H 01/14 0915 AC 01/14 Chloride IV 01/14 2214 0919 Dextrose/Sodium 1,000 ML Q13H 01/13 1400 DC 01/13 Chloride IV 01/14 0259 1451 Ferrous Sulfate 325 MG DAILY 01/13 0900 AC 01/13 PO 0957 Finasteride 5 MG DAILY 01/13 0942 AC PO Insulin Aspart 0 TIDAC 01/12 1700 DC 01/13 SC 1241 Insulin Human Regular 0 Q6 01/13 1800 AC 01/14 SC 0534 Lactulose 10 GM DAILY PRN 01/12 1245 AC PO Magnesium Sulfate 1 GM Q2H 01/13 1030 DC 01/13 Dextrose/Water 100 ML IV 01/13 1429 1540 Propranolol HCl 60 MG DAILY 01/12 1241 AC PO Rifaximin 550 MG BID 01/12 2100 AC 01/13 PO 0957 Sodium Chloride 1,000 ML Q13H 01/13 0845 DC 01/13 IV 01/13 2144 0956 Trazodone HCl 100 MG QPM 01/12 2100 AC 01/12 PO 2026 Last 24 Hrs of Lab/Herb Results Last 24 Hrs of Labs/Mics: Laboratory Tests 01/14/18 1015: Vit D 1,25-Dihyd Total Pending, 1,25 Dihydroxy Vit D2 Pending, 1,25 Dihydroxy Vit D3 Pending, Ref Lab Test Result Pending 01/14/18 0700: Anion Gap 7, Estimated GFR > 60, BUN/Creatinine Ratio 36.7 H, Total Bilirubin 2.1 H, Direct Bilirubin 0.9 H, AST 63 H, ALT 38, Alkaline Phosphatase 133 H, Total Protein 5.8 L, Albumin 2.2 L, CBC w Diff NO MAN DIFF REQ, RBC 2.90 L, MCV 87.2, MCH 29.4, MCHC 33.7, RDW 23.2 H, MPV 9.6, Gran % 81.1 H, Lymphocytes % 7.1 L, Monocytes % 11.2 H, Eosinophils % 0.4, Basophils % 0.2, Absolute Granulocytes 8.4 H, Absolute Lymphocytes 0.7 L, Absolute Monocytes 1.2 H, Absolute Eosinophils 0, Absolute Basophils 0 Assessment/Plan Assessment: 82-year-old gentleman with multiple comorbidities, including but not limited to, alcoholic cirrhosis, esophageal varices, portal hypertension, diabetes with microvascular complications, cholelithiasis, long-standing anemia presents to [facility] ED after sustaining a fall while he was reaching out in his closet to get something. 1. Hypercalcemia. Given PTH independent process, will check PTHrP. Check SPEP, UPEP (Combined Sensitivity for MM-93%) Check 1,25 calcium levels. Given little likelihood of it being a Vitamin D toxicity, hypercalcemia of malignancy is a concern. Continue hydration. No evidence of lytic lesions on the X-rays obtained thus far. 2. Dysphagia. High aspiration risk. To solids and liquids. Keep NPO. Needs nutrional support, severely malnourished. NG tube as temporizing measure. GI consult. GI-tube, wonder if feasible with his degree of ascites. 3. Goals of care. Pt's realistic about whole situation, and will discuss with Mr. Feliz regarding his wishes moving forwards. Mr. Feliz seemed hesitant to the idea of NG tube and G-tube options. Family may consider supportive and palliative care. Will follow. 4. Fall. Continue gentle hydration. Hold spironolactone and Lasix. Continue holding doxazosin (alpha-1 anastacio). Await nutrition and GI consult and recommendations. 3. Hyperbilirubinemia. Transaminitis. Elevated alk phos. Abdominal ultrasound obtained, demonstrates intraluminal calculi along with wall thickening as well as pericholecystic fluid. All these findings can be explained by cirrhosis with portal hypertension, especially in the setting of no physical or sonographic Tsai sign. Continue to monitor liver enzymes closely. Stable today. 4. Leukocytosis. Wonder if there is some degree of Myelodysplasia in the setting of chronic anemia and thrombocytopenia. Peripheral flow is an option. Will wait for family's decision regarding further goals of care. Rule out infection, negative urinalysis. Unremarkable chest x-ray. Afebrile, and no sonographic evidence of bile duct pathology. Get GGT. Monitor for fevers. If febrile or becomes confused, may need para to rule out infection. 5. Chronic anemia and thrombocytopenia. ? some degree of myelodysplasia. Will start pharmacological DVT ppx. Platelets stable. Given concerns for underlying malignant process, hypercoagulable state and immobilzation due to deconditioing, will start a short-half life reversible sterling agent- Heparin sq q8 (although Lovenox more ideal). 6. Essential tremor. Continue propranolol. Hold for SBP <100. 7. Diabetes. Accu-Cheks q6 and sliding scale NPO. FSGs goal <180. DNR/DNI. Pharm for DVT prophylaxis. NPO. Problem List: 1. Thrombocytopenia 2. Diabetes mellitus 3. Fracture of left inferior pubic ramus Pain Ratin Pain Location: None Pain Goal: Remain pain free Pain Plan: PRN Tomorrow's Labs & Rationales: Acutely ill patient.
[2018-01-14 09:42] LABS: ABSOLUTE BASOPHIL COUNT 0 /CUMM (0.0-0.2); ABSOLUTE EOSINOPHIL COUNT 0 /CUMM (0.0-0.7); ABSOLUTE GRANULOCYTE CT 8.4 /CUMM (1.4-6.5); ABSOLUTE LYMPH COUNT 0.7 /CUMM (1.2-3.4); ABSOLUTE MONOCYTE COUNT 1.2 /CUMM (0.10-0.60); BASOPHIL % 0.2 % (0.0-2.0); EOSINOPHIL % 0.4 % (0-5); GRANULOCYTE % 81.1 % (42.2-75.2); HEMATOCRIT 25.2 % (42-52); MEAN CORPUSCULAR HGB 29.4 PG (27.0-31.0); MEAN CORPUSCULAR HGB CONC 33.7 G/DL (33.0-37.0); MEAN CORPUSCULAR VOLUME 87.2 FL (80.0-94.0); MEAN PLATELET VOLUME 9.6 FL (7.4-10.4); PLATELET COUNT 99 /CUMM (130-400); RBC DISTRIBUTION WIDTH 23.2 % (11.5-14.5); WHITE BLOOD CELL COUNT 10.4 /CUMM (4.8-10.8)
[2018-01-14 14:08] VITALS: BP 120/60
[2018-01-14 15:57] VITALS: BP 118/56
[2018-01-14 21:58] VITALS: BP 110/51
[2018-01-15 06:20] VITALS: BP 106/58
--- NOTE | 2018-01-15 07:29 | PN- Housestaff ---
See Addendum Subjective Follow-up For: Mechanical fall. Hypercalcemia Hyperbilirubinemia Subjective: Continues to feel poorly. Requests some ice chips. Still hesitant about NG tube placement, most discussed with family about further goals. Complains of persistent dry mouth. Not happy with lactulose enema. No chills or fevers. Feels extremely weak. Review of Systems Constitutional: Reports: see HPI. Objective Last 24 Hrs of Vital Signs/I&O Vital Signs Date Time Temp Pulse Resp B/P B/P Pulse O2 O2 Flow FiO2 Mean Ox Delivery Rate 01/14 2158 97.8 73 18 110/51 98 01/14 1557 97.5 76 18 118/56 91 01/14 1408 97.0 69 18 120/60 98 Room Air Intake & Output 01/15 0800 01/15 0000 01/14 1600 Intake Total 835 600 Output Total 400 Balance 835 200 Intake, IV 535 600 Intake, Oral 300 Number 1 Bowel Movements Output, Urine 400 Physical Exam General Appearance: Alert, Oriented X3 Cardiovascular: Regular Rate, Normal S1, Normal S2 Lungs: Clear to Auscultation, Normal Air Movement Abdomen: Normal Bowel Sounds, Soft Extremities: No Clubbing, No Cyanosis, No Edema Current Medications: Current Medications Sig/Sidra Start time Last Medication Dose Route Stop Time Status Admin Acetaminophen 1,000 MG .STK-MED ONE 01/14 0958 DC IV 01/14 0959 Dextrose/Sodium 1,000 ML Q13H 01/15 0600 AC 01/15 Chloride IV 01/15 1859 0551 Dextrose/Sodium 1,000 ML Q13H 01/14 0915 DC 01/14 Chloride IV 01/14 2214 0919 Ferrous Sulfate 325 MG DAILY 01/13 0900 AC 01/13 PO 0957 Finasteride 5 MG DAILY 01/13 0942 AC PO Heparin Sodium 100 UNIT .STK-MED ONE 01/14 1459 DC (Porcine) IV 01/14 1500 Heparin Sodium 5,000 UNIT Q8 01/14 1400 AC 01/15 (Porcine) SC 0542 Insulin Human Regular 1 UNITS .STK-MED ONE 01/14 1820 DC IV 01/14 1821 Insulin Human Regular 4 UNITS .STK-MED ONE 01/14 1355 DC IV 01/14 1356 Insulin Human Regular 0 Q6 01/13 1800 AC 01/15 SC 0011 Lactulose 1 BOT Q8 01/14 1400 AC 01/15 ID 0542 Lactulose 10 GM DAILY PRN 01/12 1245 DC PO Patient Medication 1 ED ONE ONE 01/14 1545 DC Teaching ED 01/14 1546 Propranolol HCl 60 MG DAILY 01/12 1241 AC PO Rifaximin 550 MG BID 01/12 2100 AC 01/13 PO 0957 Trazodone HCl 100 MG QPM 01/12 2100 AC 01/12 PO 2026 Last 24 Hrs of Lab/Herb Results Last 24 Hrs of Labs/Mics: Laboratory Tests 01/14/18 1015: Vit D 1,25-Dihyd Total Pending, 1,25 Dihydroxy Vit D2 Pending, 1,25 Dihydroxy Vit D3 Pending, Ref Lab Test Result Pending Assessment/Plan Assessment: 82-year-old gentleman with multiple comorbidities, including but not limited to, alcoholic cirrhosis, esophageal varices, portal hypertension, diabetes with microvascular complications, cholelithiasis, long-standing anemia presents to [facility] ED after sustaining a fall while he was reaching out in his closet to get something. 1. Hypercalcemia. Given PTH independent process, await PTHrP results. Await SPEP, UPEP (Combined Sensitivity for MM-93%) Await 1,25 calcium levels. Given little likelihood of it being a Vitamin D toxicity, hypercalcemia of malignancy is a concern. Continue hydration. No evidence of lytic lesions on the X-rays obtained thus far. 2. Dysphagia. High aspiration risk. To solids and liquids. Keep NPO. Needs nutrional support, severely malnourished. NG tube. GI consult. G-tube, wonder if feasible with his degree of ascites. Called GI 01/14/18 for consult, will replace consult today. 3. Goals of care. Pt's realistic about whole situation, and will discuss with Mr. Feliz regarding his wishes moving forwards. Mr. Feliz seemed hesitant to the idea of NG tube and G-tube options. Family may consider supportive and palliative care, pending evaluation by GI. Will follow. 4. Fall. Continue gentle hydration. Hold spironolactone and Lasix. Continue holding doxazosin (alpha-1 anastacio). Await nutrition and GI consult and recommendations. 3. Hyperbilirubinemia. Transaminitis. Elevated alk phos. Abdominal ultrasound obtained, demonstrates intraluminal calculi along with wall thickening as well as pericholecystic fluid. All these findings can be explained by cirrhosis with portal hypertension, especially in the setting of no physical or sonographic Tsai sign. Continue to monitor liver enzymes closely. GI consult pending. 4. Leukocytosis. Resolved. Wonder if there is some degree of Myelodysplasia in the setting of chronic anemia and thrombocytopenia. Peripheral flow is an option. Will wait for family's decision regarding further goals of care. Leukocytosis resolved and ruled out infection, negative urinalysis. Unremarkable chest x-ray. Afebrile, and no sonographic evidence of bile duct pathology. Get GGT. Monitor for fevers. If febrile or becomes confused, may need para to rule out infection. 5. Chronic anemia and thrombocytopenia. ? some degree of myelodysplasia. Will start pharmacological DVT ppx. Platelets stable. Given concerns for underlying malignant process, hypercoagulable state and immobilzation due to deconditioing, will start a short-half life reversible sterling agent- Heparin sq q8 (although Lovenox more ideal). 6. Essential tremor. Continue propranolol. Hold for SBP <100. 7. Diabetes. Accu-Cheks q6 and sliding scale NPO. FSGs goal <180. DNR/DNI. Pharm for DVT prophylaxis. NPO. Problem List: 1. Cirrhosis 2. Thrombocytopenia 3. Abrasions of multiple sites Pain Ratin Pain Location: Generalized Pain Goal: Remain pain free Pain Plan: PRN Tomorrow's Labs & Rationales: Acutely ill patient
[2018-01-15 09:18] LABS: ABSOLUTE BASOPHIL COUNT 0 /CUMM (0.0-0.2); ABSOLUTE EOSINOPHIL COUNT 0 /CUMM (0.0-0.7); ABSOLUTE GRANULOCYTE CT 7.3 /CUMM (1.4-6.5); ABSOLUTE LYMPH COUNT 0.8 /CUMM (1.2-3.4); BASOPHIL % 0.2 % (0.0-2.0); EOSINOPHIL % 0.5 % (0-5); GRANULOCYTE % 79.6 % (42.2-75.2); HEMATOCRIT 26.7 % (42-52); MEAN CORPUSCULAR HGB 29.4 PG (27.0-31.0); MEAN CORPUSCULAR HGB CONC 33.8 G/DL (33.0-37.0); MEAN PLATELET VOLUME 9.5 FL (7.4-10.4); RBC DISTRIBUTION WIDTH 23.2 % (11.5-14.5); RED BLOOD CELL CT 3.07 /CUMM (4.70-6.10); WHITE BLOOD CELL COUNT 9.2 /CUMM (4.8-10.8)
[2018-01-15 10:25] LABS: PLATELET COUNT 104 /CUMM (130-400)
[2018-01-15 15:09] VITALS: BP 110/60
--- NOTE | 2018-01-15 15:15 | Cons- Gastroenterology ---
General Information and HPI Consulting Request Date of Consult: 01/15/18 Requested By: Luis Gill MD Reason for Consult: Oropharyngeal dysphasia Cirrhosis Source of Information: patient, family, old records History of Present Illness: The patient has known alcoholic cirrhosis, with recent decompensation including ascites, and some degree of encephalopathy. He has a history of GI bleeding from varices, although not recently and his last EGD in September demonstrated small varices only. Recently he has had systemic decompensation, including anorexia, weight loss, weakness, falling, some confusion. He has seen neurology for a tremor. Imaging demonstrated retroperitoneal adenopathy, and he was evaluated by oncology with decision to approach conservatively. His abdominal distention has been stable, and he has had minor lower extremity edema. He has developed choking with swallowing, and inpatient swallow evaluation/modified barium swallow was concerning for risk of aspiration. Allergies/Medications Allergies: Coded Allergies: NO KNOWN ALLERGIES (NONE 12/27/17) Home Med List: B12/Levomefolate Calcium/B-6 (Folbic Rf Tablet) 2 MG-1.13 MG-25 MG TABLET 1 TAB PO DAILY Vitamin (Reported) Cholecalciferol (Vitamin D3) 1,000 UNIT TABLET 1 TAB PO DAILY VITAMIN SUPPORT (Reported) Doxazosin Mesylate (Cardura) 4 MG TABLET 1 TAB PO DAILY BPH (Reported) Ferrous Sulfate 325 MG (65 MG IRON) TABLET 1 TAB PO DAILY ANEMIA (Reported) Furosemide (Lasix) 40 MG TABLET 1 TAB PO DAILY Fluid (Reported) Glipizide (Glipizide ER) 2.5 MG TAB.ER.24 1 TAB PO DAILY DM II (Reported) Lactulose 10 GRAM/15 ML SOLUTION 15 ML PO DAILY CONSTIPATION (Reported) Metformin HCl 1,000 MG TABLET 1 TAB PO BID DIABETES (Reported) Propranolol HCl (Propranolol HCl ER) 60 MG CAP.SA.24H 1 CAP PO DAILY Cirrhosis (Reported) Rifaximin (Xifaxan) 550 MG TABLET 1 TAB PO BID Liver (Reported) Spironolactone (Aldactone) 100 MG TABLET 1 TAB PO DAILY Fluid (Reported) Trazodone HCl 100 MG TABLET 1 TAB PO QPM SLEEP (Reported) Vit C/E/Zn/Coppr/Lutein/Zeaxan (Preservision Areds 2 Softgel) 250-200-40 CAPSULE 1 TAB PO BID EYE (Reported) Current Medications: Current Medications Sig/Sidra Start time Last Medication Dose Route Stop Time Status Admin Dextrose/Sodium 1,000 ML Q13H 01/15 0600 AC 01/15 Chloride IV 01/15 1859 0551 Dextrose/Sodium 1,000 ML Q13H 01/14 0915 DC 01/14 Chloride IV 01/14 2214 0919 Ferrous Sulfate 325 MG DAILY 01/13 0900 AC 01/13 PO 0957 Finasteride 5 MG DAILY 01/13 0942 AC PO Heparin Sodium 5,000 UNIT Q8 01/14 1400 AC 01/15 (Porcine) SC 0542 Insulin Human Regular 4 UNITS .STK-MED ONE 01/15 0009 DC IV 01/15 0010 Insulin Human Regular 1 UNITS .STK-MED ONE 01/14 1820 DC IV 01/14 1821 Insulin Human Regular 0 Q6 01/13 1800 AC 01/15 SC 1255 Lactulose 1 BOT Q8 01/14 1400 AC 01/15 NV 0542 Patient Medication 1 ED ONE ONE 01/14 1545 DC Teaching ED 01/14 1546 Propranolol HCl 60 MG DAILY 01/12 1241 AC PO Rifaximin 550 MG BID 01/12 2100 AC 01/13 PO 0957 Trazodone HCl 100 MG QPM 01/12 2100 AC 01/12 PO 2027 Past History Travel History Traveled to [place] past 21 day No Medical History Neurological: peripheral neuropathy, essential tremor EENT: cataracts, hearing loss Cardiovascular: NONE Respiratory: NONE Gastrointestinal: Esophageal varices, band ligated Junctional varices Portal hypertensive gastropathy Hepatic: cholelithiasis, cirrhosis Renal: NONE Musculoskeletal: osteoarthritis Psychiatric: alcohol dependence, insomnia Endocrine: diabetes Blood Disorders: thrombocytopenia (cirrhotic) Cancer(s): NONE MANAGER/Reproductive: NONE Surgical History Surgical History: UPPER ENDOSCOPY WITH VARICEAL BANDING. tracheostomy as . INGUINAL HERNIA REPAIRED Family History Relations & Conditions If Any: maternal aunt, ; Cause: Alcoholic cirrhosis. Psychosocial History Who Do You Live With? spouse Services at Home: None Primary Language: Portuguese Smoking Status: Former Smoker ETOH Use: denies use Illicit Drug Use: denies illicit drug use Living Will? full code Power of Meat And Seafood Clerk/HCP? unknown Functional Ability ADLs Independent: dressing, eating, toileting, bathing. Ambulation: independent IADLs Independent: shopping, housework, finances, food prep, telephone, transportation , medication admin. Exam & Diagnostic Data Vital Signs and I&O Vital Signs Date Time Temp Pulse Resp B/P B/P Pulse O2 O2 Flow FiO2 Mean Ox Delivery Rate 01/15 0620 98.1 76 18 106/58 98 Room Air 01/14 2158 97.8 73 18 110/51 98 01/14 1557 97.5 76 18 118/56 91 Intake & Output 01/15 1600 01/15 0400 01/14 1600 01/14 0400 01/13 1600 01/13 040 Intake Total 137 145 2244 600 1780 300 Output Total 400 420 250 Balance 300 835 392 464 7178 300 Intake, IV 975 105 6505 600 1060 300 Intake, Oral 300 720 Number 0 1 0 Bowel Movements Output, Urine 400 420 250 Patient 148 lb 141 lb 140 lb Weight Weight Bed scale Measurement Method Physical Exam: Thin/cachectic. Diffuse loss of muscle mass. Alert, oriented, sluggish mentation. Sclera anicteric. No gross oropharyngeal lesion. Neck supple without thyromegaly/mass. No jaundice, multiple ecchymoses. No peripheral adenopathy. Heart regular rhythm. Lungs clear. Abdomen with normal bowel sounds; nontender, reducible umbilical hernia; palpable spleen, no tenderness or mass. 1+ pedal edema. Results Pertinent Lab Results: Laboratory Tests 01/15 01/14 0810 1015 Chemistry Sodium (137 - 145 mmol/L) 139 Potassium (3.5 - 5.1 mmol/L) 4.1 Chloride (98 - 107 mmol/L) 105 Carbon Dioxide (22 - 30 mmol/L) 26 Anion Gap (5 - 16) 9 BUN (9 - 20 mg/dL) 21 H Creatinine (0.7 - 1.2 mg/dL) 0.6 L Estimated GFR (>60 ml/min) > 60 BUN/Creatinine Ratio (7 - 25 %) 35.0 H Vit D 1,25-Dihyd Total Pending 1,25 Dihydroxy Vit D2 Pending 1,25 Dihydroxy Vit D3 Pending Hematology CBC w Diff NO MAN DIFF REQ WBC (4.8 - 10.8 /CUMM) 9.2 RBC (4.70 - 6.10 /CUMM) 3.07 L Hgb (14.0 - 18.0 G/DL) 9.0 L Hct (42 - 52 %) 26.7 L MCV (80.0 - 94.0 FL) 87.0 MCH (27.0 - 31.0 PG) 29.4 MCHC (33.0 - 37.0 G/DL) 33.8 RDW (11.5 - 14.5 %) 23.2 H Plt Count (130 - 400 /CUMM) 104 L MPV (7.4 - 10.4 FL) 9.5 Gran % (42.2 - 75.2 %) 79.6 H Lymphocytes % (20.5 - 51.1 %) 8.7 L Monocytes % (1.7 - 9.3 %) 11.0 H Eosinophils % (0 - 5 %) 0.5 Basophils % (0.0 - 2.0 %) 0.2 Absolute Granulocytes (1.4 - 6.5 /CUMM) 7.3 H Absolute Lymphocytes (1.2 - 3.4 /CUMM) 0.8 L Absolute Monocytes (0.10 - 0.60 /CUMM) 1.0 H Absolute Eosinophils (0.0 - 0.7 /CUMM) 0 Absolute Basophils (0.0 - 0.2 /CUMM) 0 Miscellaneous Ref Lab Test Result Pending 01/14 01/13 0700 1100 Chemistry Sodium (137 - 145 mmol/L) 136 L Potassium (3.5 - 5.1 mmol/L) 3.9 Chloride (98 - 107 mmol/L) 101 Carbon Dioxide (22 - 30 mmol/L) 28 Anion Gap (5 - 16) 7 BUN (9 - 20 mg/dL) 22 H Creatinine (0.7 - 1.2 mg/dL) 0.6 L Estimated GFR (>60 ml/min) > 60 BUN/Creatinine Ratio (7 - 25 %) 36.7 H Calcium (8.4 - 10.2 mg/dL) 9.2 Total Bilirubin (0.2 - 1.3 mg/dL) 2.1 H Direct Bilirubin (< 0.4 mg/dL) 0.9 H GGT (15 - 73 U/L) 98 H AST (17 - 59 U/L) 63 H ALT (21 - 72 U/L) 38 Alkaline Phosphatase (< 127 U/L) 133 H Total Protein (6.3 - 8.2 g/dL) 5.8 L Albumin (3.5 - 5.0 g/dL) 2.2 L Hematology CBC w Diff NO MAN DIFF REQ WBC (4.8 - 10.8 /CUMM) 10.4 RBC (4.70 - 6.10 /CUMM) 2.90 L Hgb (14.0 - 18.0 G/DL) 8.5 L Hct (42 - 52 %) 25.2 L MCV (80.0 - 94.0 FL) 87.2 MCH (27.0 - 31.0 PG) 29.4 MCHC (33.0 - 37.0 G/DL) 33.7 RDW (11.5 - 14.5 %) 23.2 H Plt Count (130 - 400 /CUMM) 99 L MPV (7.4 - 10.4 FL) 9.6 Gran % (42.2 - 75.2 %) 81.1 H Lymphocytes % (20.5 - 51.1 %) 7.1 L Monocytes % (1.7 - 9.3 %) 11.2 H Eosinophils % (0 - 5 %) 0.4 Basophils % (0.0 - 2.0 %) 0.2 Absolute Granulocytes (1.4 - 6.5 /CUMM) 8.4 H Absolute Lymphocytes (1.2 - 3.4 /CUMM) 0.7 L Absolute Monocytes (0.10 - 0.60 /CUMM) 1.2 H Absolute Eosinophils (0.0 - 0.7 /CUMM) 0 Absolute Basophils (0.0 - 0.2 /CUMM) 0 Miscellaneous Ref Lab Test Result Cancelled 01/13 01/13 0710 0600 Chemistry Sodium (137 - 145 mmol/L) 134 L Potassium (3.5 - 5.1 mmol/L) 4.2 Chloride (98 - 107 mmol/L) 101 Carbon Dioxide (22 - 30 mmol/L) 26 Anion Gap (5 - 16) 7 BUN (9 - 20 mg/dL) 29 H Creatinine (0.7 - 1.2 mg/dL) 0.7 Estimated GFR (>60 ml/min) > 60 BUN/Creatinine Ratio (7 - 25 %) 41.4 H Calcium (8.4 - 10.2 mg/dL) 10.0 Total Bilirubin (0.2 - 1.3 mg/dL) 2.2 H Direct Bilirubin (< 0.4 mg/dL) 1.0 H AST (17 - 59 U/L) 65 H ALT (21 - 72 U/L) 41 Alkaline Phosphatase (< 127 U/L) 147 H Prot Electrophoresis Pending Total Protein (6.3 - 8.2 g/dL) 6.1 L Total Protein (PEP) Pending Albumin (3.5 - 5.0 g/dL) 2.4 L Albumin % (PEP) Pending [id number] Pending [id number] Pending [id number] Pending [id number] Pending Gamma Globulins Pending Abnorm Protein Band 1 Pending Abnorm Protein Band 2 Pending Abnorm Protein Band 3 Pending Hematology CBC w Diff NO MAN DIFF REQ WBC (4.8 - 10.8 /CUMM) 11.4 H RBC (4.70 - 6.10 /CUMM) 2.87 L Hgb (14.0 - 18.0 G/DL) 8.4 L Hct (42 - 52 %) 25.0 L MCV (80.0 - 94.0 FL) 87.2 MCH (27.0 - 31.0 PG) 29.2 MCHC (33.0 - 37.0 G/DL) 33.5 RDW (11.5 - 14.5 %) 23.4 H Plt Count (130 - 400 /CUMM) 97 L MPV (7.4 - 10.4 FL) 9.9 Gran % (42.2 - 75.2 %) 82.1 H Lymphocytes % (20.5 - 51.1 %) 6.8 L Monocytes % (1.7 - 9.3 %) 10.7 H Eosinophils % (0 - 5 %) 0.2 Basophils % (0.0 - 2.0 %) 0.2 Absolute Granulocytes (1.4 - 6.5 /CUMM) 9.4 H Absolute Lymphocytes (1.2 - 3.4 /CUMM) 0.8 L Absolute Monocytes (0.10 - 0.60 /CUMM) 1.2 H Absolute Eosinophils (0.0 - 0.7 /CUMM) 0 Absolute Basophils (0.0 - 0.2 /CUMM) 0 01/12 1639 Toxicology Urine Opiates Screen (>2000 NG/ML) < 100 Methadone Screen (>300 NG/ML) < 40 Barbiturate Screen (>200 NG/ML) < 60 Ur Phencyclidine Scrn (>25 NG/ML) < 6.00 Amphetamines Screen (>1000 NG/ML) < 100 U Benzodiazepines Scrn (>200 NG/ML) < 85 Urine Cocaine Screen (>300 NG/ML) < 50 Urine Cannabis Screen (>50 NG/ML) < 5.00 Urines Urine Color (YEL,AMB,STR) YEL Urine Clarity (CLEAR) CLEAR Urine pH (5.0 - 8.0) 6.0 Ur Specific Rousseau (1.001 - 1.035) 1.020 Urine Protein (NEG,<30 MG/DL) NEG Urine Ketones (NEG) TRACE H Urine Nitrite (NEG) NEG Urine Bilirubin (NEG) NEG Urine Urobilinogen (0.1 - 1.0 EU/dl) 2.0 H Ur Leukocyte Esterase (NEG) NEG Ur Microscopic EXAM NOT REQUIRED Urine Hemoglobin (NEG) NEG Urine Glucose (N MG/DL) NEG Assessment/Plan Assessment/Recommendations: 1. Oropharyngeal dysphagia. This is certainly in the setting of overall deterioration, deconditioning, loss of muscle mass. Concerning for underlying neuromuscular disorder and/or paraneoplastic disease. NG feeding contraindicated because of varices, and percutaneous gastrostomy contraindicated because of ascites. 2. Cirrhosis, with decompensation including ascites. Heretofore, no imaging evidence for hepatoma. Known varices, without recent bleeding. 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 3. Retroperitoneal adenopathy and anemia, with the patient scheduled for upcoming repeat imaging. No further workup or aggressive intervention was planned by hematology-oncology after discussion with patient and family. Recommendations * CT scan of the chest/abdomen/pelvis with IV contrast. This will assess for hepatoma, progression of adenopathy, and degree of ascites (important in decision making advanced to any consideration for percutaneous gastrostomy). * For the present, nothing by mouth with IV fluids * Rifaximin 550 mg by mouth twice a day Consult Acknowledgment - Thank you for your consult request.
--- NOTE | 2018-01-15 19:37 | CT SCAN REPORT ---
EXAMINATION: CT CHEST, ABDOMEN AND PELVIS WITH IV CONTRAST. CLINICAL INFORMATION: Ascites. Needs tube feeds. COMPARISON: CT abdomen exam 09/10/2017. TECHNIQUE: 5 mm thin axial images of chest, abdomen and pelvis were obtained following IV 95 obtained 320. DLP 440. FINDINGS: CHEST: There is a small left pleural effusion with underlying the left lower lobe atelectasis. Otherwise both lungs are hyperinflated and clear of acute pneumonic process. No pulmonary nodule, mass or consolidation seen. There is no right pleural effusion. The heart size is enlarged with coronary artery calcifications. There are numerous abnormal precarinal, pretracheal and aortic window lymph nodes. Largest pretracheal measures 2.9 x 2.7 cm axial image 20, series 2. The central trachea and the bronchi widely patent The axilla and the chest wall appears unremarkable. The thyroid lobes are symmetrical and normal. ABDOMEN AND PELVIS: The liver surface is lobulated and slightly attenuated. There is a 7 mm hyperdense lesion in the right hepatic lobe. There is no intrahepatic ductal dilatation. There is moderate splenomegaly. There is moderate to large ascites. Numerous collateral vessels are seen in the gastrohepatic ligament and at the gastroesophageal junction including at the splenic hilum from portal venous hypertension. The portal vein is patent with mild prominence. Visualized pancreas, adrenal glands and the kidneys unremarkable except for a likely cyst in the lower pole left kidney. No hydronephrosis. The abdominal aorta is normal caliber. There are intraperitoneal lymph nodes and likely collateral vessels. Scattered groundglass seen in descending and sigmoid colon without diverticulitis. The small bowel loops unremarkable. No free air seen. There is diffuse thinning of the abdominal wall with mild edema. Imaging through the pelvis reveals dependent radiopaque bladder stone which is stable. No bladder wall thickening seen. No inguinal hernia seen. Bone windows reveal no lytic or sclerotic process. Mild degenerative disc changes throughout lower lumbar spine is noted. There is mild ventral spondylosis. IMPRESSION: Small left pleural effusion with underlying left lower lobe atelectasis. Otherwise the lungs are clear. Diffuse ascites, splenomegaly and portal venous hypertension. Fatty liver. Urinary bladder stone without any bladder wall thickening. Sigmoid and descending colon diverticulosis without diverticulitis. Stable right hepatic cyst.
[2018-01-15 22:42] VITALS: BP 126/60
[2018-01-16 06:20] VITALS: BP 138/63
[2018-01-16 08:42] LABS: ABSOLUTE BASOPHIL COUNT 0 /CUMM (0.0-0.2); ABSOLUTE EOSINOPHIL COUNT 0.1 /CUMM (0.0-0.7); ABSOLUTE GRANULOCYTE CT 6.3 /CUMM (1.4-6.5); ABSOLUTE MONOCYTE COUNT 0.8 /CUMM (0.10-0.60); BASOPHIL % 0 % (0.0-2.0); EOSINOPHIL % 0.7 % (0-5); GRANULOCYTE % 77.3 % (42.2-75.2); HEMATOCRIT 25.3 % (42-52); MEAN CORPUSCULAR HGB 29.5 PG (27.0-31.0); MEAN CORPUSCULAR HGB CONC 33.6 G/DL (33.0-37.0); MEAN CORPUSCULAR VOLUME 87.7 FL (80.0-94.0); MEAN PLATELET VOLUME 9.1 FL (7.4-10.4); PLATELET COUNT 98 /CUMM (130-400); RBC DISTRIBUTION WIDTH 24.3 % (11.5-14.5); RED BLOOD CELL CT 2.89 /CUMM (4.70-6.10); WHITE BLOOD CELL COUNT 8.2 /CUMM (4.8-10.8)
--- NOTE | 2018-01-16 11:37 | PN- Housestaff ---
Subjective Follow-up For: Mechanical fall. Hypercalcemia Hyperbilirubinemia Subjective: Seen and examined. Patient continues to feel poorly and is lethargic. And he has been repeatedly declining lactulose enemas. Acute overnight events. Review of Systems Constitutional: Reports: see HPI. Objective Last 24 Hrs of Vital Signs/I&O Vital Signs Date Time Temp Pulse Resp B/P B/P Pulse O2 O2 Flow FiO2 Mean Ox Delivery Rate 01/17 620 97.9 82 18 138/63 96 Room Air 01/15 2242 97.7 78 20 126/60 94 Room Air / 1509 97.8 70 18 110/60 96 Intake & Output 01/16 1600 01/16 0800 01/16 0000 Intake Total 600 75 Output Total Balance 600 75 Intake, IV 600 75 Number 0 Bowel Movements Physical Exam General Appearance: Alert Other Physical Findings: Cardiovascular: Regular Rate, Normal S1, Normal S2 Lungs: Clear to Auscultation, Normal Air Movement Abdomen: Normal Bowel Sounds, Soft Extremities: No Clubbing, No Cyanosis, No Edema Current Medications: Current Medications Sig/Sidra Start time Last Medication Dose Route Stop Time Status Admin Dextrose/Sodium 1,000 ML Q13H 01/15 2000 DC 01/15 Chloride IV 01/16 0859 2233 Dextrose/Sodium 1,000 ML Q13H / 0600 DC / Chloride IV 01/15 1859 0551 Ferrous Sulfate 325 MG DAILY 01/13 0900 AC 01/13 PO 0957 Finasteride 5 MG DAILY 01/13 0942 AC 01/16 PO 1023 Heparin Sodium 5,000 UNIT Q8 01/14 1400 AC 01/16 (Porcine) SC 0556 Insulin Human Regular 2 UNITS .STK-MED ONE 01/15 1733 DC IV 01/15 1734 Insulin Human Regular 1 UNITS .STK-MED ONE 01/15 1251 DC IV 01/15 1252 Insulin Human Regular 0 Q6 01/13 1800 AC 01/16 SC 0555 Lactulose 1 BOT Q8 01/14 1400 AC 01/15 [place] 0542 Propranolol HCl 60 MG DAILY 01/12 1241 AC PO Rifaximin 550 MG BID 01/12 2100 AC 01/15 PO 2223 Trazodone HCl 100 MG QPM 01/12 2100 AC 01/15 PO 2223 Last 24 Hrs of Lab/Herb Results Last 24 Hrs of Labs/Mics: Laboratory Tests 01/16/18 0620: Anion Gap 8, Estimated GFR > 60, BUN/Creatinine Ratio 31.7 H, Total Bilirubin 3.5 H, Direct Bilirubin 2.0 H, AST 61 H, ALT 46, Alkaline Phosphatase 152 H, Total Protein 6.1 L, Albumin 2.2 L, CBC w Diff NO MAN DIFF REQ, RBC 2.89 L, MCV 87.7, MCH 29.5, MCHC 33.6, RDW 24.3 H, MPV 9.1, Gran % 77.3 H, Lymphocytes % 11.7 L, Monocytes % 10.3 H, Eosinophils % 0.7, Basophils % 0, Absolute Granulocytes 6.3, Absolute Lymphocytes 1.0 L, Absolute Monocytes 0.8 H, Absolute Eosinophils 0.1, Absolute Basophils 0 Assessment/Plan Assessment: 82-year-old gentleman with multiple comorbidities, including but not limited to, alcoholic cirrhosis, esophageal varices, portal hypertension, diabetes with microvascular complications, cholelithiasis, long-standing anemia presents to [facility] ED after sustaining a fall while he was reaching out in his closet to get something. Patient had a CT scan yesterday. Results as follow Small left pleural effusion with underlying left lower lobe atelectasis. Otherwise the lungs are clear. Diffuse ascites, splenomegaly and portal venous hypertension. Fatty liver. Urinary bladder stone without any bladder wall thickening.BE Sigmoid and descending colon diverticulosis without diverticulitis. Stable right hepatic cyst. The patient has been evaluated by GI. Given his diffuse ascites they do not think that PEG tube placement can be performed. OTher option this to done by interventional radiology however with the recurrent risk of ascites, it is unlikely to proceed with the procedure. We are going to get speech therapist involved and discuss goals of care with the family #Dysphagia. High aspiration risk. To solids and liquids. Keep NPO. Needs nutrional support, severely malnourished. NG tube. GI consult. G-tube, wonder if feasible with his degree of ascites. #Fall. -Continue gentle hydration. -Hold spironolactone and Lasix. Continue holding doxazosin (alpha-1 anastacio). #Hyperbilirubinemia. Transaminitis. Elevated alk phos. -Abdominal ultrasound obtained, demonstrates intraluminal calculi along with wall thickening as well as pericholecystic fluid. -All these findings can be explained by cirrhosis with portal hypertension, especially in the setting of no physical or sonographic Tsai sign. -Continue to monitor liver enzymes closely. GI consult pending. #Hypercalcemia. Given PTH independent process, await PTHrP results. Await SPEP, UPEP (Combined Sensitivity for MM-93%) Await 1,25 calcium levels. Given little likelihood of it being a Vitamin D toxicity, hypercalcemia of malignancy is a concern. Continue hydration. No evidence of lytic lesions on the X-rays obtained thus far. #Leukocytosis. Resolved. Wonder if there is some degree of Myelodysplasia in the setting of chronic anemia and thrombocytopenia. Peripheral flow is an option. Will wait for family's decision regarding further goals of care. Leukocytosis resolved and ruled out infection, negative urinalysis. Unremarkable chest x-ray. Afebrile, and no sonographic evidence of bile duct pathology. Monitor for fevers. If febrile or becomes confused, may need para to rule out infection. #Chronic anemia and thrombocytopenia. ? some degree of myelodysplasia. Will start pharmacological DVT ppx. Platelets stable. #Given concerns for underlying malignant process, hypercoagulable state and immobilzation due to deconditioing, will start a short-half life reversible sterlign agent- Heparin sq q8 (although Lovenox more ideal). #Essential tremor. Continue propranolol. Hold for SBP <100. #Diabetes. Accu-Cheks q6 and sliding scale NPO. FSGs goal <180. Problem List: 1. Fall 2. Cirrhosis Pain Ratin Pain Location: na Pain Goal: Pain 4 or less Pain Plan: na Tomorrow's Labs & Rationales: all labs unchanged no morning labs ordered
--- NOTE | 2018-01-16 12:20 | PN- Gastroenterology ---
Assessment/Plan GI Assessment/Recommendations: 1. Oropharyngeal dysphagia. This is certainly in the setting of overall deterioration, deconditioning, loss of muscle mass. Concerning for underlying neuromuscular disorder and/or paraneoplastic disease. NG feeding contraindicated because of varices, and percutaneous gastrostomy contraindicated because of ascites. 2. Cirrhosis, with decompensation including ascites. Heretofore, no imaging evidence for hepatoma. Now with small lesion on CT. Known varices, without recent bleeding. 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 3. Retroperitoneal adenopathy and anemia. No change on repeat imaging. Recommendations * Given ascites and varices, cannot perform percutaneous endoscopic gastrostomy placement. May wish to discuss with IR (large-volume paracentesis to drain ascites, subsequent imaging guided gastrostomy placement); this would still be contraindicated, however, given risk of recurrent ascites. * For the present, nothing by mouth with IV fluids. Begin pure diet and thickened liquids with supervision by speech therapist. * Rifaximin 550 mg by mouth twice a day * Patient and his are agreeable to palliative care consult. Subjective Subjective: No new complaints. No pain, nausea. Objective Vital Signs and I&Os Vital Signs Date Time Temp Pulse Resp B/P B/P Pulse O2 O2 Flow FiO2 Mean Ox Delivery Rate 01/16 0620 97.9 82 18 138/63 96 Room Air / 2242 97.7 78 20 126/60 94 Room Air / 1509 97.8 70 18 110/60 96 Intake & Output 01/16 1600 / 0400 / 1600 / 0400 / 1600 06/ 0400 Intake Total 699 66 [id number] 770 4716 600 Output Total 400 420 Balance 020 15 4168 835 800 180 Intake, IV 600 75 310 133 5934 600 Intake, Oral 500 300 Number 0 0 1 Bowel Movements Output, Urine 400 420 Patient 148 lb Weight Physical Exam: Sclera anicteric. Abdomen distended. Trace pedal edema. Current Medications: Current Medications Sig/Sidra Start time Last Medication Dose Route Stop Time Status Admin Dextrose/Sodium 1,000 ML Q13H 01/16 2000 DC / Chloride IV 01/16 0859 2233 Dextrose/Sodium 1,000 ML Q13H 01/15 06 DC / Chloride IV 01/15 1859 0543 Ferrous Sulfate 325 MG DAILY 01/13 0900 AC 01/13 PO 0957 Finasteride 5 MG DAILY 01/13 0942 AC 01/16 PO 1023 Heparin Sodium 5,000 UNIT Q8 01/14 1400 AC 01/16 (Porcine) SC 0556 Insulin Human Regular 2 UNITS .STK-MED ONE 01/15 1733 DC IV 01/15 1734 Insulin Human Regular 1 UNITS .STK-MED ONE 01/15 1251 DC IV 01/15 1252 Insulin Human Regular 0 Q6 01/13 1800 AC 01/16 SC 0555 Lactulose 1 BOT Q8 01/14 1400 AC 01/15 [place] 0542 Propranolol HCl 60 MG DAILY 01/12 1241 AC PO Rifaximin 550 MG BID 01/12 2100 AC 01/15 PO 2223 Trazodone HCl 100 MG QPM 01/12 2100 AC 01/15 PO 2223 Results Pertinent Lab Results: Laboratory Tests 01/16 01/15 0620 0810 Chemistry Sodium (137 - 145 mmol/L) 139 139 Potassium (3.5 - 5.1 mmol/L) 4.0 4.1 Chloride (98 - 107 mmol/L) 107 105 Carbon Dioxide (22 - 30 mmol/L) 24 26 Anion Gap (5 - 16) 8 9 BUN (9 - 20 mg/dL) 19 21 H Creatinine (0.7 - 1.2 mg/dL) 0.6 L 0.6 L Estimated GFR (>60 ml/min) > 60 > 60 BUN/Creatinine Ratio (7 - 25 %) 31.7 H 35.0 H Total Bilirubin (0.2 - 1.3 mg/dL) 3.5 H Direct Bilirubin (< 0.4 mg/dL) 2.0 H AST (17 - 59 U/L) 61 H ALT (21 - 72 U/L) 46 Alkaline Phosphatase (< 127 U/L) 152 H Total Protein (6.3 - 8.2 g/dL) 6.1 L Albumin (3.5 - 5.0 g/dL) 2.2 L Hematology CBC w Diff NO MAN DIFF REQ NO MAN DIFF REQ WBC (4.8 - 10.8 /CUMM) 8.2 9.2 RBC (4.70 - 6.10 /CUMM) 2.89 L 3.07 L Hgb (14.0 - 18.0 G/DL) 8.5 L 9.0 L Hct (42 - 52 %) 25.3 L 26.7 L MCV (80.0 - 94.0 FL) 87.7 87.0 MCH (27.0 - 31.0 PG) 29.5 29.4 MCHC (33.0 - 37.0 G/DL) 33.6 33.8 RDW (11.5 - 14.5 %) 24.3 H 23.2 H Plt Count (130 - 400 /CUMM) 98 L 104 L MPV (7.4 - 10.4 FL) 9.1 9.5 Gran % (42.2 - 75.2 %) 77.3 H 79.6 H Lymphocytes % (20.5 - 51.1 %) 11.7 L 8.7 L Monocytes % (1.7 - 9.3 %) 10.3 H 11.0 H Eosinophils % (0 - 5 %) 0.7 0.5 Basophils % (0.0 - 2.0 %) 0 0.2 Absolute Granulocytes (1.4 - 6.5 /CUMM) 6.3 7.3 H Absolute Lymphocytes (1.2 - 3.4 /CUMM) 1.0 L 0.8 L Absolute Monocytes (0.10 - 0.60 /CUMM) 0.8 H 1.0 H Absolute Eosinophils (0.0 - 0.7 /CUMM) 0.1 0 Absolute Basophils (0.0 - 0.2 /CUMM) 0 0 06/01 06/ 1015 0700 Chemistry Sodium (137 - 145 mmol/L) 136 L Potassium (3.5 - 5.1 mmol/L) 3.9 Chloride (98 - 107 mmol/L) 101 Carbon Dioxide (22 - 30 mmol/L) 28 Anion Gap (5 - 16) 7 BUN (9 - 20 mg/dL) 22 H Creatinine (0.7 - 1.2 mg/dL) 0.6 L Estimated GFR (>60 ml/min) > 60 BUN/Creatinine Ratio (7 - 25 %) 36.7 H Calcium (8.4 - 10.2 mg/dL) 9.2 Total Bilirubin (0.2 - 1.3 mg/dL) 2.1 H Direct Bilirubin (< 0.4 mg/dL) 0.9 H GGT (15 - 73 U/L) 98 H AST (17 - 59 U/L) 63 H ALT (21 - 72 U/L) 38 Alkaline Phosphatase (< 127 U/L) 133 H Total Protein (6.3 - 8.2 g/dL) 5.8 L Albumin (3.5 - 5.0 g/dL) 2.2 L Vit D 1,25-Dihyd Total Pending 1,25 Dihydroxy Vit D2 Pending 1,25 Dihydroxy Vit D3 Pending Hematology CBC w Diff NO MAN DIFF REQ WBC (4.8 - 10.8 /CUMM) 10.4 RBC (4.70 - 6.10 /CUMM) 2.90 L Hgb (14.0 - 18.0 G/DL) 8.5 L Hct (42 - 52 %) 25.2 L MCV (80.0 - 94.0 FL) 87.2 MCH (27.0 - 31.0 PG) 29.4 MCHC (33.0 - 37.0 G/DL) 33.7 RDW (11.5 - 14.5 %) 23.2 H Plt Count (130 - 400 /CUMM) 99 L MPV (7.4 - 10.4 FL) 9.6 Gran % (42.2 - 75.2 %) 81.1 H Lymphocytes % (20.5 - 51.1 %) 7.1 L Monocytes % (1.7 - 9.3 %) 11.2 H Eosinophils % (0 - 5 %) 0.4 Basophils % (0.0 - 2.0 %) 0.2 Absolute Granulocytes (1.4 - 6.5 /CUMM) 8.4 H Absolute Lymphocytes (1.2 - 3.4 /CUMM) 0.7 L Absolute Monocytes (0.10 - 0.60 /CUMM) 1.2 H Absolute Eosinophils (0.0 - 0.7 /CUMM) 0 Absolute Basophils (0.0 - 0.2 /CUMM) 0 Miscellaneous Ref Lab Test Result Pending Imaging/Other Studies: CT scan: Moderate to large ascites, no change adenopathy.
[2018-01-16 15:10] VITALS: BP 112/60
--- NOTE | 2018-01-16 16:28 | ULTRASOUND REPORT ---
EXAMINATION: US TRIPLEX LOWER EXTREMITY, RIGHT CLINICAL INFORMATION: Edema. COMPARISON: None TECHNIQUE: Color-flow triplex imaging with spectral analysis and compression Doppler were performed on the lower extremity. FINDINGS: Respiratory variation, normal compression and augmented flow are noted throughout the lower extremity. The visualized common femoral vein, superficial femoral vein, profunda femoral vein, popliteal vein and midcalf peroneal and posterior tibial venous segments show no evidence of deep venous thrombosis. There is no Bañuelos's cyst. IMPRESSION: No evidence of deep venous thrombosis involving the lower extremity.
--- NOTE | 2018-01-16 21:00 | PN- Att Addend ---
Attending MD Review Statement Attending Statement Attending MD Statement: examined this patient, discuss w/resident/PA/DEVELOPMENT DIRECTOR, agreed w/resident/PA/DEVELOPMENT DIRECTOR, discussed with family, reviewed EMR data (avail) Attending Assessment/Plan: d/w pt and family about the PEG tube placement issue. Given his diffuse ascites on CT scan it would be a difficult procedure. We discussed palliative care option with pts and we are going to consult palliative care to see the patient tomorrow. 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
[2018-01-16 22:29] VITALS: BP 127/58
[2018-01-17 06:20] VITALS: BP 132/62
--- NOTE | 2018-01-17 10:11 | PN- Housestaff ---
See Addendum Subjective Follow-up For: Mechanical fall. Hypercalcemia Hyperbilirubinemia Subjective: Continues to feel poorly Continues to feel very weak. He does not want NG tube or any such intervention. He wants to eat and is open to the idea of focusing on comfort, eating under supervision and palliative care consult. He requests ice chips and does well with them. No fevers or chills. Review of Systems Constitutional: Reports: see HPI. Objective Last 24 Hrs of Vital Signs/I&O Vital Signs Date Time Temp Pulse Resp B/P B/P Pulse O2 O2 Flow FiO2 Mean Ox Delivery Rate 01/17 1002 97.9 68 18 132/62 06/04 0620 97.9 68 18 132/62 97 Room Air 01/16 2229 97.6 84 18 127/58 95 Room Air 01/16 1510 97.6 74 20 112/60 97 Intake & Output 01/17 1600 01/17 0800 01/17 0000 Intake Total 600 100 Output Total Balance 600 100 Intake, IV 600 100 Physical Exam General Appearance: Alert, Oriented X3, Cooperative Cardiovascular: Regular Rate, Normal S1, Normal S2 Lungs: Clear to Auscultation, Normal Air Movement Abdomen: Normal Bowel Sounds, Soft, Distended. Extremities: No Clubbing, No Cyanosis Current Medications: Current Medications Sig/Sidra Start time Last Medication Dose Route Stop Time Status Admin Dextrose/Sodium 1,000 ML Q13H 01/16 2030 AC 01/17 Chloride IV 1003 Ferrous Sulfate 325 MG DAILY 01/13 0900 AC 01/13 PO 0957 Finasteride 5 MG DAILY 01/13 0942 AC 01/16 PO 1023 Heparin Sodium 5,000 UNIT Q8 01/14 1400 AC 01/17 (Porcine) [place] 0616 Insulin Human Regular 1 UNITS .STK-MED ONE 01/16 1811 DC IV 01/16 1812 Insulin Human Regular 4 UNITS .STK-MED ONE 01/16 1327 DC IV 01/16 1328 Insulin Human Regular 0 Q6 01/13 1800 AC 01/17 SC 0615 Lactulose 1 BOT Q8 01/14 1400 AC 01/15 [place] 0542 Propranolol HCl 60 MG DAILY 01/12 1241 AC PO Rifaximin 550 MG BID 01/12 2100 AC 01/15 PO 2223 Trazodone HCl 100 MG QPM 01/12 2100 AC 01/15 PO 2223 Assessment/Plan Assessment: 82-year-old gentleman with multiple comorbidities, including but not limited to, alcoholic cirrhosis, esophageal varices, portal hypertension, diabetes with microvascular complications, cholelithiasis, long-standing anemia presents to [facility] ED after sustaining a fall while he was reaching out in his closet to get something. 1. Hypercalcemia. Given PTH independent process, await PTHrP results. Await SPEP, UPEP (Combined Sensitivity for MM-93%) Low 1,25 calcium levels argue against it being a Vitamin D toxicity, hypercalcemia of malignancy is a concern. Continue hydration. No evidence of malignancy on CT chest abdomen and pelvis. No evidence of lytic lesions on the X-rays obtained thus far. 2. Dysphagia. Appreciate GI recommendations. Patient requests trial of food intake under supervision. Palliative consult requested. 3. Goals of care. Palliative consult with Dr. Jones requested. 4. Fall. Continue gentle hydration. Hold spironolactone and Lasix. Continue holding doxazosin (alpha-1 anastacio). 3. Hyperbilirubinemia. Transaminitis. Elevated alk phos. Abdominal ultrasound obtained, demonstrates intraluminal calculi along with wall thickening as well as pericholecystic fluid. All these findings can be explained by cirrhosis with portal hypertension, especially in the setting of no physical or sonographic Tsai sign. Continue to monitor liver enzymes closely. 4. Leukocytosis. Resolved. Wonder if there is some degree of Myelodysplasia in the setting of chronic anemia and thrombocytopenia. Peripheral flow is an option. Will wait for family's decision regarding further goals of care. Leukocytosis resolved and ruled out infection, negative urinalysis. Unremarkable chest x-ray. Afebrile, and no sonographic evidence of bile duct pathology. 5. Chronic anemia and thrombocytopenia. ? some degree of myelodysplasia. Given concerns for underlying malignant process, hypercoagulable state and immobilzation due to deconditioing, will start a short-half life reversible sterling agent- Heparin sq q8 (although Lovenox more ideal). 6. Essential tremor. Continue propranolol. Hold for SBP <100. 7. Diabetes. Accu-Cheks q6 and sliding scale NPO. FSGs goal <180. DNR/DNI. Pharm for DVT prophylaxis. NPO. Problem List: 1. Unable to ambulate Pain Ratin Pain Location: Everywhere Pain Goal: Pain 4 or less Pain Plan: PRN Tomorrow's Labs & Rationales: Acutely ill
[2018-01-17 14:00] VITALS: BP 136/56
[2018-01-17 22:41] VITALS: BP 136/66
[2018-01-18 05:55] VITALS: BP 141/67
[2018-01-18 08:31] LABS: ABSOLUTE BASOPHIL COUNT 0 /CUMM (0.0-0.2); ABSOLUTE EOSINOPHIL COUNT 0.1 /CUMM (0.0-0.7); ABSOLUTE GRANULOCYTE CT 5.2 /CUMM (1.4-6.5); ABSOLUTE LYMPH COUNT 0.7 /CUMM (1.2-3.4); ABSOLUTE MONOCYTE COUNT 0.6 /CUMM (0.10-0.60); BASOPHIL % 0 % (0.0-2.0); GRANULOCYTE % 78.6 % (42.2-75.2); HEMATOCRIT 26.3 % (42-52); MEAN CORPUSCULAR HGB 29.2 PG (27.0-31.0); MEAN CORPUSCULAR HGB CONC 33.3 G/DL (33.0-37.0); MEAN CORPUSCULAR VOLUME 87.9 FL (80.0-94.0); MEAN PLATELET VOLUME 8.8 FL (7.4-10.4); PLATELET COUNT 94 /CUMM (130-400); RBC DISTRIBUTION WIDTH 23.8 % (11.5-14.5); RED BLOOD CELL CT 2.99 /CUMM (4.70-6.10); WHITE BLOOD CELL COUNT 6.6 /CUMM (4.8-10.8)
[2018-01-18 13:47] VITALS: BP 120/70
--- NOTE | 2018-01-18 15:44 | PN- Housestaff ---
Subjective Follow-up For: Mechanical fall. Hypercalcemia Hyperbilirubinemia Subjective: Notes improvement. Review of Systems Constitutional: Reports: see HPI. Objective Last 24 Hrs of Vital Signs/I&O Vital Signs Date Time Temp Pulse Resp B/P B/P Pulse O2 O2 Flow FiO2 Mean Ox Delivery Rate 01/18 1347 97.0 63 18 120/70 97 Room Air 06/ 0945 97.7 79 20 141/67 06/05 0555 97.7 79 20 141/67 97 Room Air 06/ 2241 97.9 83 20 136/66 96 Intake & Output 01/18 1600 01/18 0800 06/ 0000 Intake Total 1100 600 Output Total Balance 1100 600 Intake, IV 700 600 Intake, Oral 400 Number 1 Bowel Movements Physical Exam General Appearance: Alert, Oriented X3, Cooperative Cardiovascular: Regular Rate, Normal S1, Normal S2 Lungs: Clear to Auscultation, Normal Air Movement Abdomen: Normal Bowel Sounds, Soft Extremities: No Clubbing, No Cyanosis, No Edema Current Medications: Current Medications Sig/Sidra Start time Last Medication Dose Route Stop Time Status Admin Dextrose/Sodium 1,000 ML Q13H 01/16 2030 AC 01/18 Chloride IV 1158 Ferrous Sulfate 325 MG DAILY 01/13 0900 AC 01/18 PO 0945 Finasteride 5 MG DAILY 01/13 0942 AC 01/18 PO 0945 Heparin Sodium 5,000 UNIT Q8 01/14 1400 AC 01/17 (Porcine) SC 0616 Insulin Human Regular 4 UNITS .STK-MED ONE 01/18 0616 DC IV 01/18 0617 Insulin Human Regular 4 UNITS .STK-MED ONE 01/17 2357 DC IV 01/17 2358 Insulin Human Regular 2 UNITS .STK-MED ONE 01/17 1902 DC IV 01/17 1903 Insulin Human Regular 0 Q6 01/13 1800 AC 01/18 SC 1158 Lactulose 1 BOT Q8 01/14 1400 AC 01/15 MD 0542 Morphine Sulfate 2.5 MG Q6 01/17 1800 CAN PO Morphine Sulfate 1 MG Q6 01/17 1800 AC 01/18 IV 1158 Propranolol HCl 60 MG DAILY 01/12 1241 AC 06/ PO 0945 Rifaximin 550 MG BID 01/12 2100 AC 01/18 PO 0945 Trazodone HCl 100 MG QPM 01/12 2100 AC 01/15 PO 2223 Last 24 Hrs of Lab/Herb Results Last 24 Hrs of Labs/Mics: Laboratory Tests 01/18/18 0655: Anion Gap 9, Estimated GFR > 60, BUN/Creatinine Ratio 28.3 H, CBC w Diff NO MAN DIFF REQ, RBC 2.99 L, MCV 87.9, MCH 29.2, MCHC 33.3, RDW 23.8 H, MPV 8.8, Gran % 78.6 H, Lymphocytes % 11.0 L, Monocytes % 9.4 H, Eosinophils % 1.0, Basophils % 0, Absolute Granulocytes 5.2, Absolute Lymphocytes 0.7 L, Absolute Monocytes 0.6, Absolute Eosinophils 0.1, Absolute Basophils 0 Assessment/Plan Assessment: 82-year-old gentleman with multiple comorbidities, including but not limited to, alcoholic cirrhosis, esophageal varices, portal hypertension, diabetes with microvascular complications, cholelithiasis, long-standing anemia presents to [facility] ED after sustaining a fall while he was reaching out in his closet to get something. 1. Hypercalcemia. Given PTH independent process, await PTHrP results. Await SPEP, UPEP-low gammaglobulins go against diagnosis of multiple myeloma. No need to send immunofixation studies. Low 1,25 calcium levels argue against it being a Vitamin D toxicity, hypercalcemia of malignancy is a concern. Continue hydration. No evidence of malignancy on CT chest abdomen and pelvis. No evidence of lytic lesions on the X-rays obtained thus far. 2. Dysphagia. Appreciate GI recommendations. Doing well with pure food under supervision. Palliative consult requested. 3. Goals of care. Palliative consult with Dr. Jones requested. 4. Fall. Continue gentle hydration. Hold spironolactone and Lasix. Continue holding doxazosin (alpha-1 anastacio). 3. Hyperbilirubinemia. Transaminitis. Elevated alk phos. Abdominal ultrasound obtained, demonstrates intraluminal calculi along with wall thickening as well as pericholecystic fluid. All these findings can be explained by cirrhosis with portal hypertension, especially in the setting of no physical or sonographic Tsai sign. Continue to monitor liver enzymes closely. 4. Leukocytosis. Resolved. Wonder if there is some degree of Myelodysplasia in the setting of chronic anemia and thrombocytopenia. Peripheral flow is an option. Will wait for family's decision regarding further goals of care. Leukocytosis resolved and ruled out infection, negative urinalysis. Unremarkable chest x-ray. Afebrile, and no sonographic evidence of bile duct pathology. 5. Chronic anemia and thrombocytopenia. ? some degree of myelodysplasia. Given concerns for underlying malignant process, hypercoagulable state and immobilzation due to deconditioing, will start a short-half life reversible sterling agent- Heparin sq q8 (although Lovenox more ideal). 6. Essential tremor. Continue propranolol. Hold for SBP <100. 7. Diabetes. Accu-Cheks q6 and sliding scale NPO. FSGs goal <180. DNR/DNI. Pharm for DVT prophylaxis. Diet ordered-comfort feeding. Problem List: 1. Cirrhosis Pain Ratin Pain Location: Morphine Pain Goal: Remain pain free Pain Plan: Morphine Tomorrow's Labs & Rationales: Acutely ill
--- NOTE | 2018-01-18 16:35 | Transfer of Care Summary ---
Hospital Course Course Hospital Course: 82-year-old gentleman with multiple comorbidities, including but not limited to, alcoholic cirrhosis, esophageal varices, portal hypertension, diabetes with microvascular complications, cholelithiasis, long-standing anemia presents to [facility] ED after sustaining a fall while he was reaching out in his closet to get something. 1. Fall. Head CT negative. During the course of admission, it was the patient had extreme generalized deconditioning and showed very poor muscle strength. This was thought to be secondary to very poor nutritional status. Patient was also seen aspirating with eating food. Following this a swallow eval was obtained and the patient failed the swallowing. Modified barium swallow was obtained, in which patient was found to have profound oropharyngeal dysphagia. Following this the patient was kept nothing by mouth and given fluid hydration. 2. Oropharyngeal dysphagia. A GI evaluation was obtained to discuss the possibility of NG tube or G-tube placement. Given the extent of esophageal varices, NG tube was contraindicated. In given the extent of his ascites a G- tube was not a possibility either. During all this, patient's general physical condition continued to decline, and after multiple family discussions it was ascertained that the patient would want to be fed despite the risks associated with aspiration and would want to be comfortable. Following this, comfort feeding with ice creams, puddings as well as pured food was started on 2017. Patient should some improvement in his physical strength following initiation of pured diet under supervision. 2. Hypercalcemia. Corrected calcium for low albumin 11.7. Patient was provided with hydration. His intact PTH levels were checked, which were low. His 1,25 vitamin D levels were low as well, pointing towards an etiology which was PTH independent and related to a process probably secondary to PTH related peptide. SPEP and UPEP was ordered as well, which remained negative for presence of MGUS or MM. The results of PTH related peptide to remain negative at this time. Patient had previously been found to have adenopathy on CAT scans. A follow-up CAT scan of chest abdomen and pelvis was obtained while inpatient which did not show any progression of adenopathy. 3. Hyperbilirubinemia. Transaminitis. Elevated alk phos. Abdominal ultrasound obtained, demonstrates intraluminal calculi along with wall thickening as well as pericholecystic fluid. All these findings can be explained by cirrhosis with portal hypertension, especially in the setting of no physical or sonographic Tsai sign. Liver enzymes were continually monitored, and remained stable during the course of his stay. 4. Leukocytosis. This was thought to be secondary to dehydration/ hemoconcentration. With fluid hydration, his mucositis improved and all sources of infection were ruled out. 5. Chronic anemia and thrombocytopenia. Patient's family told that, in 2011 patient was told that he has myelodysplasia but never followed up. Patient may benefit from an outpatient hematology follow-up regarding myelodysplasia. 6. Essential tremor. Continue propranolol. Hold for SBP <100. 7. Diabetes. Accu-Cheks and sliding scale. Palliative care consult pending. DNR/DNI. Alps and pharmacological DVT prophylaxis. Regular pured diet with nectar thick liquids. Complications: Severe malnutrition General physical deconditioning and decreased functional status. Assessment/Plan: As above. Attending MD Review Statement Documenting Attending: Jas Pimentel MD Other Findings: Agree with summary of care as described.
--- NOTE | 2018-01-18 16:38 | Patient Discharge Instructions ---
Discharge Instructions General Discharge Information You were seen/treated for: Dehydration Hypercalcemia Special Instructions: Please follow-up with primary care physician as an outpatient. Please follow-up with GI physician as an outpatient. Please follow-up with Dr. Jones as an outpatient. Diet Continue normal diet: Yes (Puree with nectar thick) Activity Full Activity/No Limits: Yes Acute Coronary Syndrome Inclusion Criteria At DC or during hospital stay patient has or had the following: ACS DIAGNOSIS No Discharge Core Measures Meds if any: Prescribed or Continued at Discharge Meds if any: NOT Prescribed or Continued at Discharge Congestive Heart Failure Inclusion Criteria At DC or during hospital stay patient has or had the following: CHF DIAGNOSIS No Discharge Core Measures Meds if any: Prescribed or Continued at Discharge Meds if any: NOT Prescribed or Continued at Discharge Cerebrovascular accident Inclusion Criteria At DC or during hospital stay patient has or had the following: CVA/TIA Diagnosis No Discharge Core Measures Meds if any: Prescribed or Continued at Discharge Meds if any: NOT Prescribed or Continued at Discharge Venous thromboembolism Inclusion Criteria VTE Diagnosis No VTE Type NONE VTE Confirmed by (Test) NONE Discharge Core Measures - Per Current guidelines, there needs to be overlap - treatment for the first 5 days of Warfarin therapy. - If discharged on Warfarin prior to 5 days of - overlap therapy, the patient will need to be - assessed for post discharge needs including - *Post discharge parental anticoagulation - *Warfarin and/or parental anticoagulation education - *Follow up date to check INR post discharge At least 5 days overlap therapy as Inpatient No Meds if any: Prescribed or Continued at Discharge Note: Overlap Therapy is Warfarin and Anticoagulant Meds if any: NOT Prescribed or Continued at Discharge
[2018-01-18 22:42] VITALS: BP 130/80
--- NOTE | 2018-01-18 22:44 | Cons- Palliative Care ---
General Information and HPI Consulting Request Date of Consult: 01/18/18 Requested By: Jas Pimenetl MD Reason for Consult: pain management, non-pain symptom mgmt, care/transition planning Source patient, family Exam Limitations no limitations Associated Symptoms: pain, anorexia, depression, physical discomfort History of Present Illness: 82M w/ end-stage alcoholic liver disease manifested by ascites, varices, encephalopathy - admitted to following fall at home. Patient without serious trauma, but noted to be in debilitated condition. Family who are present today (spouse, 2 sons) share that patient has been experiencing declining physical function at home including poor ambulation, poor PO intake. A family meeting was held today for 1.5 hours to address goals of care, disposition planning, and symptom management. Patient and family express understanding that patient's current condition limits his ability to return home at this time. His spouse shares that she is also ill and unable to provide direct care to the patient at this time. He is currently non-ambulatory, requiring assistance of 2 people to transfer from him from bed to chair. He also is demonstrating incontinence. PO intake has been limited recently due to dysphagia - he is now tolerating limited PO intake of a pureed consistency with the understanding that he is likely experiencing ongoing aspiration. Prior discussion with family regarding alternative nutritional supplementation has included discussion of NGT, though this method would only be for temporary use and may be contraindicated given the presence of esophageal varices. Gastrostomy has also been discussed - this too may be contraindicated given the presence of ascites. Patient and family is desiring of a comfort-prioritized approach to care and are in agreement with permissive PO intake in setting of ongoing aspiration. Patient appears to be comfortable when taking in ice chips, water, and even ice cream/pudding. We dicsused at length disposition options - at this time, patient is desiring to attempt some level of rehabilitation, but recognizes that his condition may deteriorate at which time, rehabilitation would be discontinued and his care would transition to a custoidal nature. He does not wish to return to the hospital under these circumstances, opting intead for a [id number] philosophy. We agreed that at which time his care transitions to comfort-only, a hospice program should be engaged. Patient and family express understanding that patient will need to transition to SNF -I have recommended they choose a facility close to their home in [place]. Allergies/Medications Allergies: Coded Allergies: NO KNOWN ALLERGIES (NONE 12/27/17) Home Med List: B12/Levomefolate Calcium/B-6 (Folbic Rf Tablet) 2 MG-1.13 MG-25 MG TABLET 1 TAB PO DAILY Vitamin (Reported) Cholecalciferol (Vitamin D3) 1,000 UNIT TABLET 1 TAB PO DAILY VITAMIN SUPPORT (Reported) Doxazosin Mesylate (Cardura) 4 MG TABLET 1 TAB PO DAILY BPH (Reported) Ferrous Sulfate 325 MG (65 MG IRON) TABLET 1 TAB PO DAILY ANEMIA (Reported) Furosemide (Lasix) 40 MG TABLET 1 TAB PO DAILY Fluid (Reported) Glipizide (Glipizide ER) 2.5 MG TAB.ER.24 1 TAB PO DAILY DM II (Reported) Lactulose 10 GRAM/15 ML SOLUTION 15 ML PO DAILY CONSTIPATION (Reported) Metformin HCl 1,000 MG TABLET 1 TAB PO BID DIABETES (Reported) Propranolol HCl (Propranolol HCl ER) 60 MG CAP.SA.24H 1 CAP PO DAILY Cirrhosis (Reported) Rifaximin (Xifaxan) 550 MG TABLET 1 TAB PO BID Liver (Reported) Spironolactone (Aldactone) 100 MG TABLET 1 TAB PO DAILY Fluid (Reported) Trazodone HCl 100 MG TABLET 1 TAB PO QPM SLEEP (Reported) Vit C/E/Zn/Coppr/Lutein/Zeaxan (Preservision Areds 2 Softgel) 250-200-40 CAPSULE 1 TAB PO BID EYE (Reported) Current Medications: Current Medications Sig/Sidra Start time Last Medication Dose Route Stop Time Status Admin Dextrose/Sodium 1,000 ML Q13H 01/16 2030 AC 01/18 Chloride IV 1158 Ferrous Sulfate 325 MG DAILY 01/13 0900 AC 01/18 PO 0945 Finasteride 5 MG DAILY 01/13 0942 AC 01/18 PO 0945 Heparin Sodium 5,000 UNIT Q8 01/14 1400 AC 01/17 (Porcine) SC 0616 Insulin Aspart 0 AT BEDTIME 01/18 2100 AC SC Insulin Aspart 0 TIDAC 01/18 1830 AC 01/18 SC 1831 Insulin Human Regular 2 UNITS .STK-MED ONE 01/18 1153 DC IV 01/18 1154 Insulin Human Regular 4 UNITS .STK-MED ONE 01/18 0616 DC IV 01/18 0617 Insulin Human Regular 4 UNITS .STK-MED ONE 01/17 2357 DC IV 01/17 2358 Insulin Human Regular 0 Q6 01/13 1800 DC 01/18 SC 1158 Lactulose 1 BOT Q8 01/14 1400 AC 01/15 SD 0542 Morphine Sulfate 1 MG Q6 01/17 1800 AC 01/18 IV 1817 Propranolol HCl 60 MG DAILY 01/12 1241 AC 01/18 PO 0945 Rifaximin 550 MG BID 01/12 2100 AC 01/18 PO 0945 Trazodone HCl 100 MG QPM 01/12 2100 AC 01/15 PO 2223 Review of Systems Review of Systems: generalized discomfort, thirst Past History Medical History Neurological: peripheral neuropathy, essential tremor EENT: cataracts, hearing loss Cardiovascular: NONE Respiratory: NONE Gastrointestinal: Esophageal varices, 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 tracheostomy as . INGUINAL HERNIA REPAIRED Family History Relations & Conditions If Any maternal aunt, ; Cause: Alcoholic cirrhosis. Psychosocial History Who Do You Live With? spouse Services at Home: None Primary Language: Spanish Smoking Status: Former Smoker ETOH Use: former heavy alcohol use Illicit Drug Use: denies illicit drug use Karnofsky Performance Scale: 20 Living Will? unknown Power of Automation Manager/HCP? unknown Functional Ability ADLs Independent: dressing, eating, toileting, bathing. Ambulation: independent IADLs Independent: shopping, housework, finances, food prep, telephone, transportation , medication admin. 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 yes Exam & Diagnostic Data Last 24 Hrs of Vitals/I&Os: Vital Signs Date Time Temp Pulse Resp B/P B/P Pulse O2 O2 Flow FiO2 Mean Ox Delivery Rate 01/18 1347 97.0 63 18 120/70 97 Room Air 01/18 0945 97.7 79 20 141/67 / 0555 97.7 79 20 141/67 97 Room Air / 2241 97.9 83 20 136/66 96 Intake & Output 01/18 1600 01/18 0800 01/18 0000 Intake Total 1100 600 Output Total Balance 1100 600 Intake, IV 700 600 Intake, Oral 400 Number 1 Bowel Movements Physical Exam: elderly male, in bed, NAD HEENT - normocephalic, atraumatic, +scleral icterus Neck - supple Lung - CTA CV - RRR Abd - distended, ascites Extr - + edema, (B) arms w/ dressing in place Neuro - mile encephalopathy Diagnostic Data Lab/Micro/Pathology Results: Laboratory Tests 01/18/18 0655: Anion Gap 9, Estimated GFR > 60, BUN/Creatinine Ratio 28.3 H, CBC w Diff NO MAN DIFF REQ, RBC 2.99 L, MCV 87.9, MCH 29.2, MCHC 33.3, RDW 23.8 H, MPV 8.8, Gran % 78.6 H, Lymphocytes % 11.0 L, Monocytes % 9.4 H, Eosinophils % 1.0, Basophils % 0, Absolute Granulocytes 5.2, Absolute Lymphocytes 0.7 L, Absolute Monocytes 0.6, Absolute Eosinophils 0.1, Absolute Basophils 0 Assessment/Plan Assessment 82M w/ ESLD Patient's Condition: serious Prognosis: poor Is Patient Decisional? yes Case Discussed With: patient, family, house staff Goals of Care: rehabilitative, limited medical treatment Treatment Preferences: 1. Transition to PO analgesia - may use MSO4 20mg/cc - 0.125-0.25cc SL q2h PRN 2. Continue with permissive PO intake - spoon feeding pureed consistency 3. Aggressively treat dry mouth - may use Biotene, Salivart, ice chips 4. Identify SNF to provide a comfort-prioritized rehabilitative plan to patient. Rehab to continue while patient is obtaining benefit. When he obtains maximal benefit, his care will need to transition to fci care - at which time, a decision can be made about whether patient should return home. While at SNF, patient prefers [id number]. 5. If his condition deteriorates, we have agreed that care should transition to comfort-only and hispice care should be engaged. 6. Ongoing family support Consult Acknowledgment - Thank you for your consult request.
[2018-01-19 05:44] VITALS: BP 138/61
--- NOTE | 2018-01-19 07:17 | PN- Housestaff ---
Cristian VAZQUEZ,Yadira 01/19/18 0716: Subjective Follow-up For: Hypercalcemia Dysphagia fall Hyperbilirubinemia Subjective: Seen and examined at bedside Patient remains at his baseline. Good spirits. Review of Systems Constitutional: Reports: see HPI. Objective Last 24 Hrs of Vital Signs/I&O Vital Signs Date Time Temp Pulse Resp B/P B/P Pulse O2 O2 Flow FiO2 Mean Ox Delivery Rate 01/19 0544 97.8 63 22 138/61 94 Room Air 01/18 2242 98.1 58 18 130/80 97 Room Air 01/18 1347 97.0 63 18 120/70 97 Room Air / 0945 97.7 79 20 141/67 Intake & Output 01/19 0800 01/19 0000 01/18 1600 Intake Total 646 381 5926 Output Total Balance 986 367 1191 Intake, IV 700 300 700 Intake, Oral 50 400 Number 2 1 Bowel Movements Physical Exam General Appearance: Alert, Cooperative, No Acute Distress Skin: everett wraps on both the hands. HEENT: Atraumatic, PERRLA Neck: Supple Cardiovascular: Normal S1, Normal S2, systolic murmur present Current Medications: Current Medications Sig/Sidra Start time Last Medication Dose Route Stop Time Status Admin Dextrose/Sodium 1,000 ML Q13H 01/16 2030 DC 01/19 [place] 0329 Ferrous Sulfate 325 MG DAILY 01/13 0900 AC 01/19 PO 0952 Finasteride 5 MG DAILY 01/13 0942 AC 01/19 PO 0952 Heparin Sodium 5,000 UNIT Q8 01/14 1400 AC 01/17 (Porcine) SC 0616 Insulin Aspart 0 AT BEDTIME 01/18 2100 SC Insulin Aspart 0 TIDAC 01/18 1830 01/19 SC 1215 Insulin Human Regular 0 Q6 01/13 1800 DC 01/18 SC 1158 Lactulose 1 BOT Q8 01/14 1400 AC 01/15 [place] 0542 Morphine Sulfate 1 MG Q6 01/17 1800 DC 01/19 IV 0518 Oxycodone HCl 5 MG Q12 01/19 1118 AC 01/19 PO 1127 Patient Medication 1 ED ONE ONE 01/19 1100 DC Teaching ED 01/19 1101 Propranolol HCl 60 MG DAILY 01/12 1241 AC 01/19 PO 0955 Rifaximin 550 MG BID 01/12 2100 AC 01/19 PO 0952 Trazodone HCl 100 MG QPM 01/12 2100 AC 01/15 PO 2224 Assessment/Plan Assessment: 82-year-old gentleman with multiple comorbidities, including but not limited to, alcoholic cirrhosis, esophageal varices, portal hypertension, diabetes with microvascular complications, cholelithiasis, long-standing anemia presents to [facility] ED after sustaining a fall while he was reaching out in his closet to get something. 1. Fall. Head CT negative. During the course of admission, it was the patient had extreme generalized deconditioning and showed very poor muscle strength. This was thought to be secondary to very poor nutritional status. Patient was also seen aspirating with eating food. Following this a swallow eval was obtained and the patient failed the swallowing. Modified barium swallow was obtained, in which patient was found to have profound oropharyngeal dysphagia. Following this the patient was kept nothing by mouth and subsequently pureed/ thickened diet. 2. Oropharyngeal dysphagia. A GI evaluation was obtained to discuss the possibility of NG tube or G-tube placement. Given the extent of esophageal varices, NG tube was contraindicated. In given the extent of his ascites a G- tube was not a possibility either. During all this, patient's general physical condition continued to decline, and after multiple family discussions it was ascertained that the patient would want to be fed despite the risks associated with aspiration and would want to be comfortable. Following this, comfort feeding with ice creams, puddings as well as pured food was started on 2017. Patient should some improvement in his physical strength following initiation of pured diet under supervision. 2. Hypercalcemia. Corrected calcium for low albumin 11.7. Patient was provided with hydration. His intact PTH levels were checked, which were low. His 1,25 vitamin D levels were low as well, pointing towards an etiology which was PTH independent and related to a process probably secondary to PTH related peptide. SPEP and UPEP was ordered as well, which remained negative for presence of MGUS or MM. The results of PTH related peptide to remain negative at this time. Patient had previously been found to have adenopathy on CAT scans. A follow-up CAT scan of chest abdomen and pelvis was obtained while inpatient which did not show any progression of adenopathy. 3. Hyperbilirubinemia. Transaminitis. Elevated alk phos. Abdominal ultrasound obtained, demonstrates intraluminal calculi along with wall thickening as well as pericholecystic fluid. All these findings can be explained by cirrhosis with portal hypertension, especially in the setting of no physical or sonographic Tsai sign. Liver enzymes were continually monitored, and remained stable during the course of his stay. 4. Leukocytosis. This was thought to be secondary to dehydration/ hemoconcentration. With fluid hydration, his mucositis improved and all sources of infection were ruled out. 5. Chronic anemia and thrombocytopenia. Patient's family told that, in 2011 patient was told that he has myelodysplasia but never followed up. Patient may benefit from an outpatient hematology follow-up regarding myelodysplasia. 6. Essential tremor. Continue propranolol. Hold for SBP <100. 7. Diabetes. Accu-Cheks and sliding scale. Palliative care consult pending. DNR/DNI. Alps and pharmacological DVT prophylaxis. Regular pured diet with nectar thick liquids. Problem List: 1. Abrasions of multiple sites 2. Fall 3. Anemia 4. Thrombocytopenia Pain Ratin Pain Location: n/a Pain Goal: Pain 4 or less Pain Plan: n/a Tomorrow's Labs & Rationales: none Jas Pimentel MD 01/19/18 2230: Attending MD Review Statement Attending Statement Attending MD Statement: examined this patient, discuss w/resident/PA/AIRCRAFT STRUCTURE MECHANIC, agreed w/resident/PA/AIRCRAFT STRUCTURE MECHANIC, discussed with family, reviewed EMR data (avail), discussed with nursing, discussed with case mgmt, amended to note Attending Assessment/Plan: The patient was seen and discussed with house staff. Appears more comfortable on morphine and is eating better w/o symptoms of aspiration. Plan is for STR. Await decision regarding locations. Will transition to po pain meds.
[2018-01-19 14:38] VITALS: BP 123/56
[2018-01-19 22:14] VITALS: BP 107/49
[2018-01-20 06:20] VITALS: BP 107/54
--- NOTE | 2018-01-20 10:34 | PN- Housestaff ---
Jarret Fitzgerald 01/20/18 1029: Subjective Follow-up For: General deconditioning Subjective: Reports 0 pain this morning. Feels well overall. Continues to enjoy pured food. Review of Systems Constitutional: Reports: see HPI. Objective Last 24 Hrs of Vital Signs/I&O Vital Signs Date Time Temp Pulse Resp B/P B/P Pulse O2 O2 Flow FiO2 Mean Ox Delivery Rate 01/20 1027 Room Air 01/20 1025 102/52 01/20 0704 Room Air 01/20 0620 98.4 62 20 107/54 97 Room Air 01/19 2214 98.8 62 20 107/49 98 Room Air 01/19 1438 97.4 67 20 123/56 98 Room Air Intake & Output 01/20 1600 01/20 0800 01/20 0000 Intake Total 120 Output Total Balance 120 Intake, Oral 120 Number 1 0 Bowel Movements Physical Exam General Appearance: Alert, Oriented X3, Cooperative HEENT: Atraumatic, PERRLA Cardiovascular: Regular Rate, Normal S1, Normal S2 Lungs: Clear to Auscultation, Normal Air Movement Abdomen: Normal Bowel Sounds, Soft, No Tenderness Extremities: No Clubbing, No Cyanosis, No Edema Current Medications: Current Medications Sig/Sidra Start time Last Medication Dose Route Stop Time Status Admin Dextrose/Sodium 1,000 ML Q13H 01/16 2030 DC 01/19 [place] 0329 Ferrous Sulfate 325 MG DAILY 01/13 0900 01/20 PO 0904 Finasteride 5 MG DAILY 01/13 0942 01/20 PO 0904 Heparin Sodium 5,000 UNIT Q8 01/14 1400 AC 01/17 (Porcine) SC 0616 Insulin Aspart 0 AT BEDTIME 01/18 2100 SC Insulin Aspart 0 TIDAC 01/18 1830 01/20 SC 0750 Lactulose 1 BOT Q8 01/14 1400 AC 01/15 [place] 0542 Morphine Sulfate 1 MG Q6 01/17 1800 DC 01/19 IV 0518 Oxycodone HCl 5 MG Q12 01/19 1118 01/20 PO 0904 Patient Medication 1 ED ONE ONE 01/19 1100 DC Teaching ED 01/19 1101 Phenylephrine HCl 1 CHER Q6P PRN 01/20 1030 AC PA Propranolol HCl 60 MG DAILY 01/12 1241 AC 01/19 PO 0955 Rifaximin 550 MG BID 01/12 2100 AC 01/20 PO 0905 Trazodone HCl 100 MG QPM 01/12 2100 AC 01/19 PO 2055 Assessment/Plan Assessment: 82-year-old gentleman with multiple comorbidities, including but not limited to, alcoholic cirrhosis, esophageal varices, portal hypertension, diabetes with microvascular complications, cholelithiasis, long-standing anemia presents to ED after sustaining a fall while he was reaching out in his closet to get something. 1. Hypercalcemia. Await PTHrP results. 2. Dysphagia. Doing well. Doing well with pure food under supervision. 3. Goals of care. Appreciate palliative care recommendations. Will follow up. 3. Hyperbilirubinemia. Stable disease 4. Leukocytosis. Resolved. 5. Chronic anemia and thrombocytopenia. ? some degree of myelodysplasia. 6. Essential tremor. Continue propranolol. Hold for SBP <100. 7. Diabetes. Accu-Cheks q6 and sliding scale NPO. FSGs goal <180. DNR/DNI. Pharm for DVT prophylaxis. Diet ordered-comfort feeding. Problem List: 1. Cirrhosis 2. Upper GI bleed Pain Ratin Pain Location: None Pain Goal: Remain pain free Pain Plan: PRN Tomorrow's Labs & Rationales: ANGELITA Pimentel MD,Jas 01/20/18 2313: Attending MD Review Statement Attending Statement Attending MD Statement: examined this patient, discuss w/resident/PA/RN INTENSIVE CARE UNIT, agreed w/resident/PA/RN INTENSIVE CARE UNIT, reviewed EMR data (avail), discussed with nursing, discussed with case mgmt, amended to note Attending Assessment/Plan: The patient was seen and discussed with house staff, nursing and case management. Doing OK with eating w/o clinical aspiration. Some constipation noted. Await placement STR. Pain under good control at present.
--- NOTE | 2018-01-20 10:45 | PN- Gastroenterology ---
Assessment/Plan GI Assessment/Recommendations: 1. Oropharyngeal dysphagia. This is in the setting of overall deterioration, deconditioning, loss of muscle mass. Concerning for underlying neuromuscular disorder and/or paraneoplastic disease. NG feeding contraindicated because of varices, and percutaneous gastrostomy contraindicated because of ascites. The patient has started pured diet, with assistance of speech therapy. 2. Cirrhosis, with decompensation including ascites. Heretofore, no imaging evidence for hepatoma. Now with small lesion on CT. Known varices, without recent bleeding. 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 Under umbilical hernia. 3. Retroperitoneal adenopathy and anemia. No change on repeat imaging. May have underlying MDS. 4. Debilitation. Appreciate palliative care consult. Agree with recommendations. Recommendations * Continue pure diet and thickened liquids with supervision by speech therapist. * Rifaximin 550 mg by mouth twice a day * Rectal examination to assess for fecal impaction. If none, decrease lactulose dose. Watch for constipation/constipation with the introduction of narcotic analgesics. * Agree with palliative care consultation recommendations Thank you very much for allowing GI participation in this patient's hospital care. We will no longer follow this patient regularly. Please call or reconsult as needed. Subjective Subjective: The patient is slightly lethargic, but easily arousable and conversant. She is complaining of occasional periumbilical pain, diarrhea, and pressure in his rectum. Objective Vital Signs and I&Os Vital Signs Date Time Temp Pulse Resp B/P B/P Pulse O2 O2 Flow FiO2 Mean Ox Delivery Rate 01/20 1027 Room Air 01/20 1025 102/52 01/20 0704 Room Air 01/20 0620 98.4 62 20 107/54 97 Room Air 01/19 2214 98.8 62 20 107/49 98 Room Air 01/19 1438 97.4 67 20 123/56 98 Room Air Intake & Output 01/20 1600 /07 0400 / 1600 / 0400 / 1600 / 0400 Intake Total 120 1851 669 7455 Output Total Balance 120 4122 759 7649 Intake, IV 642 585 0201 Intake, Oral 120 370 400 Number 1 2 1 Bowel Movements Physical Exam: Arousable, alert and oriented. No asterixis. Sclera mildly icteric. Abdomen distended, positive/tender umbilical hernia. No edema. Current Medications: Current Medications Sig/Sidra Start time Last Medication Dose Route Stop Time Status Admin Ferrous Sulfate 325 MG DAILY 01/13 0900 AC 01/20 PO 09 Finasteride 5 MG DAILY 01/13 0942 AC 01/20 PO 09 Heparin Sodium 5,000 UNIT Q8 01/14 1400 AC 01/17 (Porcine) SC 0616 Insulin Aspart 0 AT BEDTIME 01/18 2100 AC SC Insulin Aspart 0 TIDAC 01/18 1830 AC 01/20 SC 0750 Lactulose 1 BOT Q8 01/14 1400 AC 01/15 [place] 0542 Morphine Sulfate 1 MG Q6 01/17 1800 DC 01/19 IV 0518 Oxycodone HCl 5 MG Q12 01/19 1118 AC 01/20 PO 0904 Patient Medication 1 ED ONE ONE 01/19 1100 DC Teaching ED 01/19 1101 Phenylephrine HCl 1 CHER Q6P PRN 01/20 1030 AC VT Propranolol HCl 60 MG DAILY 01/12 1241 AC 01/19 PO 0955 Rifaximin 550 MG BID 01/12 2100 AC 01/20 PO 09 Trazodone HCl 100 MG QPM 01/12 2100 AC 01/19 PO 2055 Results Pertinent Lab Results: Laboratory Tests 01/18 655 Chemistry Sodium (137 - 145 mmol/L) 140 Potassium (3.5 - 5.1 mmol/L) 3.7 Chloride (98 - 107 mmol/L) 107 Carbon Dioxide (22 - 30 mmol/L) 24 Anion Gap (5 - 16) 9 BUN (9 - 20 mg/dL) 17 Creatinine (0.7 - 1.2 mg/dL) 0.6 L Estimated GFR (>60 ml/min) > 60 BUN/Creatinine Ratio (7 - 25 %) 28.3 H Hematology CBC w Diff NO MAN DIFF REQ WBC (4.8 - 10.8 /CUMM) 6.6 RBC (4.70 - 6.10 /CUMM) 2.99 L Hgb (14.0 - 18.0 G/DL) 8.7 L Hct (42 - 52 %) 26.3 L MCV (80.0 - 94.0 FL) 87.9 MCH (27.0 - 31.0 PG) 29.2 MCHC (33.0 - 37.0 G/DL) 33.3 RDW (11.5 - 14.5 %) 23.8 H Plt Count (130 - 400 /CUMM) 94 L MPV (7.4 - 10.4 FL) 8.8 Gran % (42.2 - 75.2 %) 78.6 H Lymphocytes % (20.5 - 51.1 %) 11.0 L Monocytes % (1.7 - 9.3 %) 9.4 H Eosinophils % (0 - 5 %) 1.0 Basophils % (0.0 - 2.0 %) 0 Absolute Granulocytes (1.4 - 6.5 /CUMM) 5.2 Absolute Lymphocytes (1.2 - 3.4 /CUMM) 0.7 L Absolute Monocytes (0.10 - 0.60 /CUMM) 0.6 Absolute Eosinophils (0.0 - 0.7 /CUMM) 0.1 Absolute Basophils (0.0 - 0.2 /CUMM) 0
--- NOTE | 2018-01-20 12:34 | PN- Palliative Care ---
Subjective Subjective: stable over past 24-48h case management pursuing options for rehab at 4 a facilities, but with expectation that patient will likely require LTC. Review of Systems: comfortable. Objective Last 24 Hrs of Vital Signs/I&O Vital Signs Date Time Temp Pulse Resp B/P B/P Pulse O2 O2 Flow FiO2 Mean Ox Delivery Rate 01/20 1027 Room Air 01/20 1025 102/52 01/20 0704 Room Air 01/20 0620 98.4 62 20 107/54 97 Room Air 01/19 2214 98.8 62 20 107/49 98 Room Air 01/19 1438 97.4 67 20 123/56 98 Room Air Intake & Output 01/20 1600 01/20 0800 01/20 0000 Intake Total 120 Output Total Balance 120 Intake, Oral 120 Number 1 0 Bowel Movements Assessment/Plan Treatment Preferences: 1. Transition to PO analgesia - may use MSO4 20mg/cc - 0.125-0.25cc SL q2h PRN 2. Continue with permissive PO intake - spoon feeding pureed consistency 3. Aggressively treat dry mouth - may use Biotene, Salivart, ice chips 4. Identify SNF to provide a comfort-prioritized rehabilitative plan to patient. Rehab to continue while patient is obtaining benefit. When he obtains maximal benefit, his care will need to transition to senior living care - at which time, a decision can be made about whether patient should return home. While at SNF, patient prefers [id number]. 5. If his condition deteriorates, we have agreed that care should transition to comfort-only and hispice care should be engaged. 6. Ongoing family support
[2018-01-20 13:44] VITALS: BP 112/80
[2018-01-20 22:29] VITALS: BP 114/52
[2018-01-21 06:00] VITALS: BP 122/50
--- NOTE | 2018-01-21 07:46 | PN- Housestaff ---
Cristian VAZQUEZ,Yadira 01/21/18 0746: Subjective Follow-up For: Hypercalcemia Dysphagia fall Hyperbilirubinemia Subjective: seen and examined at bedside Remains at bedside. No complaints. Review of Systems Constitutional: Reports: see HPI. Objective Last 24 Hrs of Vital Signs/I&O Vital Signs Date Time Temp Pulse Resp B/P B/P Pulse O2 O2 Flow FiO2 Mean Ox Delivery Rate 01/21 600 97.9 61 20 122/50 97 Room Air 01/20 2229 97.4 63 24 114/52 100 Room Air 01/20 1344 98.2 90 20 112/80 96 Room Air 01/20 1027 Room Air / 1025 102/52 Intake & Output 01/21 0800 01/21 0000 01/20 1600 Intake Total 50 50 700 Output Total Balance 50 50 700 Intake, Oral 50 50 700 Number 1 4 Bowel Movements Physical Exam General Appearance: Alert, Oriented X3, Cooperative Skin: No Rashes, bandages on both hands Sepsis Skin Exam (color): Normal for Ethnicity HEENT: Atraumatic, PERRLA, EOMI Neck: Supple Cardiovascular: Normal S1, Normal S2 Lungs: Clear to Auscultation, Normal Air Movement Abdomen: Normal Bowel Sounds, Soft, No Tenderness Neurological: Strength at 5/5 X4 Ext, Normal Tone Extremities: No Clubbing, No Cyanosis, 1-2+ edema Vascular: Normal Pulses Current Medications: Current Medications Sig/Sidra Start time Last Medication Dose Route Stop Time Status Admin Ferrous Sulfate 325 MG DAILY 01/13 0900 DCD 01/21 PO 0913 Finasteride 5 MG DAILY 01/13 0942 DCD 01/21 PO 0913 Heparin Sodium 5,000 UNIT Q8 01/14 1400 DCD 01/17 (Porcine) SC 0616 Insulin Aspart 0 AT BEDTIME 01/18 2100 DCD 01/20 SC 205 Insulin Aspart 0 TIDAC 01/18 1830 DCD 01/21 SC 0759 Lactulose 1 BOT Q8 01/14 1400 DCD 01/15 [place] 0542 Oxycodone HCl 5 MG Q12 01/19 1118 DCD 01/21 PO 0918 Phenylephrine HCl 1 CHER Q6P PRN 01/20 1030 DCD [place] Propranolol HCl 60 MG DAILY 01/12 1241 DCD 01/19 PO 0955 Rifaximin 550 MG BID 01/12 2100 DCD 01/21 PO 0913 Trazodone HCl 100 MG QPM 01/12 2100 DCD 01/20 PO 2049 Assessment/Plan Assessment: 82-year-old gentleman with multiple comorbidities, including but not limited to, alcoholic cirrhosis, esophageal varices, portal hypertension, diabetes with microvascular complications, cholelithiasis, long-standing anemia presents to [facility] ED after sustaining a fall while he was reaching out in his closet to get something. 1. Fall. Head CT negative. During the course of admission, it was the patient had extreme generalized deconditioning and showed very poor muscle strength. This was thought to be secondary to very poor nutritional status. Patient was also seen aspirating with eating food. Following this a swallow eval was obtained and the patient failed the swallowing. Modified barium swallow was obtained, in which patient was found to have profound oropharyngeal dysphagia. 2. Orpharyngeal dysphagia. A GI evaluation was obtained to discuss the possibility of NG tube or G-tube placement. Given the extent of esophageal varices, NG tube was contraindicated. In given the extent of his ascites a G- tube was not a possibility either. During all this, patient's general physical condition continued to decline, and after multiple family discussions it was ascertained that the patient would want to be fed despite the risks associated with aspiration and would want to be comfortable. Following this, comfort feeding with ice creams, puddings as well as pured food was started on 2017. Patient should some improvement in his physical strength following initiation of pured diet under supervision. 2. Hypercalcemia. Corrected calcium for low albumin 11.7. Patients intact PTH levels were low. His 1,25 vitamin D levels were low as well, pointing towards an etiology which was PTH independent, however PTHrP negative. SPEP/UPEP were also normal. Unclear etiology but improved with hydration. Patient had previously been found to have adenopathy on CAT scans. A follow-up CAT scan of chest abdomen and pelvis was obtained while inpatient which did not show any progression of adenopathy. 3. Hyperbilirubinemia. Transaminitis. Elevated alk phos. Abdominal ultrasound obtained, demonstrates intraluminal calculi along with wall thickening as well as pericholecystic fluid. All these findings can be explained by cirrhosis with portal hypertension, especially in the setting of no physical or sonographic Tsai sign. Liver enzymes were continually monitored, and remained stable during the course of his stay. 4. Leukocytosis. This was thought to be secondary to dehydration/ hemoconcentration. With fluid hydration, his mucositis improved and all sources of infection were ruled out. 5. Chronic anemia and thrombocytopenia. Patient's family told that, in 2011 patient was told that he has myelodysplasia but never followed up. Patient may benefit from an outpatient hematology follow-up regarding myelodysplasia. 6. Essential tremor. Continue propranolol. Hold for SBP <100. 7. Diabetes. Accu-Cheks and sliding scale. 8. Bilateral hand wounds: Patient had skin tears on bilateral upper extremities and getting acewraps with xeroform/tefla dressing daily. please continue for now. Palliative care consulted - recommended oral pain medications with SL morphine if available. Strongly recommend comfort prioritized rehabillitative plan. Encouraged spoon feeding with pureed consistency. DNR/DNI. Alps and pharmacological DVT prophylaxis. Regular pured diet with nectar thick liquids Problem List: 1. Abrasions of multiple sites 2. Fall 3. Hyponatremia 4. Leg edema 5. Diabetes mellitus Pain Ratin Pain Location: n/a Pain Goal: Pain 4 or less Pain Plan: tylenol prn Tomorrow's Labs & Rationales: none Jas Pimentel MD 01/21/18 1807: Attending MD Review Statement Attending Statement Attending MD Statement: examined this patient, discuss w/resident/PA/PANEL FLOW MACHINE OPERATOR, agreed w/resident/PA/PANEL FLOW MACHINE OPERATOR, reviewed EMR data (avail), discussed with nursing, discussed with case mgmt, amended to note Attending Assessment/Plan: The patient appears comfortable today. Eating well w/o evidence of aspiration. OK to transfer to [facility] in [place] today.
--- NOTE | 2018-01-21 09:25 | Discharge Summary ---
See Addendum Visit Information Visit Dates Admission Date: 01/12/18 Discharge Date: 01/21/18 Hospital Course Course Attending Physician: Jas Pimentel MD Primary Care Physician: Anurag Akins MD Consulting Request: 1 Consulting Specialty: Gastroenterology Consulting Physician: Reason for Consult: Oropharyngeal dysphagia Consulting Request: 2 Consulting Specialty: Palliative Care Consulting Physician: Reason for Consult: Pain management, care/transition planning Hospital Course: 82-year-old gentleman with multiple comorbidities, including but not limited to, alcoholic cirrhosis, esophageal varices, portal hypertension, diabetes with microvascular complications, cholelithiasis, long-standing anemia presents to [facility] ED after sustaining a fall while he was reaching out in his closet to get something. 1. Fall. Head CT negative. During the course of admission, it was the patient had extreme generalized deconditioning and showed very poor muscle strength. This was thought to be secondary to very poor nutritional status. Patient was also seen aspirating with eating food. Following this a swallow eval was obtained and the patient failed the swallowing. Modified barium swallow was obtained, in which patient was found to have profound oropharyngeal dysphagia. 2. Orpharyngeal dysphagia. A GI evaluation was obtained to discuss the possibility of NG tube or G-tube placement. Given the extent of esophageal varices, NG tube was contraindicated. In given the extent of his ascites a G- tube was not a possibility either. During all this, patient's general physical condition continued to decline, and after multiple family discussions it was ascertained that the patient would want to be fed despite the risks associated with aspiration and would want to be comfortable. Following this, comfort feeding with ice creams, puddings as well as pured food was started on 2017. Patient should some improvement in his physical strength following initiation of pured diet under supervision. 2. Hypercalcemia. Corrected calcium for low albumin 11.7. Patients intact PTH levels were low. His 1,25 vitamin D levels were low as well, pointing towards an etiology which was PTH independent, however PTHrP negative. SPEP/UPEP were also normal. Unclear etiology but improved with hydration. Patient had previously been found to have adenopathy on CAT scans. A follow-up CAT scan of chest abdomen and pelvis was obtained while inpatient which did not show any progression of adenopathy. 3. Hyperbilirubinemia. Transaminitis. Elevated alk phos. Abdominal ultrasound obtained, demonstrates intraluminal calculi along with wall thickening as well as pericholecystic fluid. All these findings can be explained by cirrhosis with portal hypertension, especially in the setting of no physical or sonographic Tsai sign. Liver enzymes were continually monitored, and remained stable during the course of his stay. 4. Leukocytosis. This was thought to be secondary to dehydration/ hemoconcentration. With fluid hydration, his mucositis improved and all sources of infection were ruled out. 5. Chronic anemia and thrombocytopenia. Patient's family told that, in 2011 patient was told that he has myelodysplasia but never followed up. Patient may benefit from an outpatient hematology follow-up regarding myelodysplasia. 6. Essential tremor. Continue propranolol. Hold for SBP <100. 7. Diabetes. Accu-Cheks and sliding scale. 8. Bilateral hand wounds: Patient had skin tears on bilateral upper extremities and getting acewraps with xeroform/tefla dressing daily. please continue for now. Palliative care consulted - recommended oral pain medications with SL morphine if available. Strongly recommend comfort prioritized rehabillitative plan. Encouraged spoon feeding with pureed consistency. DNR/DNI. Alps and pharmacological DVT prophylaxis. Regular pured diet with nectar thick liquids. Complications: none Allergies: Coded Allergies: NO KNOWN ALLERGIES (NONE 12/27/17) Significant Procedures: Head and Cervical spine, Pelvis CT IMPRESSION: No acute intracranial process seen. Age-related mild cerebral atrophy and chronic small vessel ischemic changes in subcortical white matter of both cerebral hemispheres. There is no acute fracture or dislocation cervical spine. There are degenerative disc changes C2-C3 through C6-C7 disc level with moderate ventral and posterior spondylosis. CXR and elbow Xray 01/12/18 IMPRESSION: No visible fracture or dislocation involving bilateral wrist, forearm or the elbows. No acute cardiopulmonary process seen in the chest. There is no visible acute fracture or dislocation AP pelvis. Pertinent Lab Results: as above Disposition Summary Disposition Principal Diagnosis: Oropharyngeal dysphagia due to progressive deterioration/deconditioning. Additional Diagnosis: Fall Cirrhosis Retroperitoneal adenopathy Hypercalcemia Hyperbilirubinemia Essential tremor diabetes Discharge Disposition: SNF Discharge Instructions General Discharge Information Code Status: Do Not Resucitate/Intubat Patient's Diet: pureed and thickened diet Patient's Activity: as tolerated Follow-Up Instructions/Appts: Please follow up with your PCP in a week Please follow up with palliative care Please continue comfort feeding Medications at Discharge Discharge Medications: Stop taking the following medications: Spironolactone (Aldactone) 100 MG TABLET ORAL DAILY Furosemide (Lasix) 40 MG TABLET ORAL DAILY Continue taking these medications: Cholecalciferol (Vitamin D3) 1,000 UNIT TABLET 1 Tablet ORAL DAILY Comments: NOT GIVEN IN HOSPITAL Metformin HCl (Metformin HCl) 1,000 MG TABLET 1 Tablet ORAL TWICE DAILY Comments: NOT GIVEN AT HOSPITAL Trazodone HCl (Trazodone HCl) 100 MG TABLET 1 Tablet ORAL Every night Comments: Last Taken: 01/20/18 Time: 850PM Glipizide (Glipizide ER) 2.5 MG TAB.ER.24 1 Tablet ORAL DAILY Comments: NOT GIVEN AT HOSPITAL Vit C/E/Zn/Coppr/Lutein/Zeaxan (Preservision Areds 2 Softgel) 250-200-40 CAPSULE 1 Tablet ORAL TWICE DAILY Comments: NOT GIVEN AT HOSPITAL Ferrous Sulfate (Ferrous Sulfate) 325 MG (65 MG IRON) TABLET 1 Tablet ORAL DAILY Comments: Last Taken: 09/30/17 Time: 9AM Propranolol HCl (Propranolol HCl ER) 60 MG CAP.SA.24H 1 Capsule ORAL DAILY Qty = 30 Comments: Last Taken: 01/19/18 Time: 955AM B12/Levomefolate Calcium/B-6 (Folbic Rf Tablet) 2 MG-1.13 MG-25 MG TABLET 1 Tablet ORAL DAILY Qty = 30 Comments: NOT GIVEN IN HOSPITAL Rifaximin (Xifaxan) 550 MG TABLET 1 Tablet ORAL TWICE DAILY Qty = 60 Comments: Last Taken: 01/21/18 Time: 913AM Lactulose (Lactulose) 10 GRAM/15 ML SOLUTION 15 Milliliters ORAL DAILY Comments: Last Taken: 01/15/18 Time: 542AM Doxazosin Mesylate (Cardura) 4 MG TABLET 1 Tablet ORAL DAILY Comments: NOT GIVEN IN HOSPITAL Copies To: Tashi VAZQUEZ,Anurag Zuniga; Karen VAZQUEZ,Pancho Harding Attending MD Review Statement Documenting Attending: Jas Pimentel MD Other Findings: The patient was seen and discussed with house staff. OK to discharge to [facility] in [place] today for STR.
[2018-01-21 11:00] VITALS: BP 122/50
== END 2018-01-21 12:40 | DRG 392 ==
LOC: ERH 06:19 → 2NA 09:56 → ERHI 09:56 → ENRESERV 16:21 → ENTRNSPT 16:58 → EDTRNSPT 17:09 → EDTRNSPTSTS 17:09 → 2NA 17:16 → CMPTRNSPT 17:20 → 2NA 01-13 11:56 → ENPENDDIS 01-21 10:29 → 2NA 01-21 12:40
PROVIDERS: Internal Medicine; Internal Medicine Hematology & Oncology; Pediatrics
DX: R13.12 Dysphagia, oropharyngeal phase (principal); S32.502A Unspecified fracture of left pubis, initial encounter for closed fracture; K76.6 Portal hypertension; I85.10 Secondary esophageal varices without bleeding; K70.31 Alcoholic cirrhosis of liver with ascites; E83.52 Hypercalcemia; R26.81 Unsteadiness on feet; E11.42 Type 2 diabetes mellitus with diabetic polyneuropathy; Z51.5 Encounter for palliative care; F10.10 Alcohol abuse, uncomplicated; Y90.0 Blood alcohol level of less than 20 mg/100 ml; E80.6 Other disorders of bilirubin metabolism; E83.41 Hypermagnesemia; E86.0 Dehydration; D64.9 Anemia, unspecified; G25.0 Essential tremor; D69.6 Thrombocytopenia, unspecified; K80.20 Calculus of gallbladder without cholecystitis without obstruction; F41.9 Anxiety disorder, unspecified; W18.30XA Fall on same level, unspecified, initial encounter; Y92.003 Bedroom of unspecified non-institutional (private) residence as the place of occurrence of the external cause; S51.012A Laceration without foreign body of left elbow, initial encounter; S51.011A Laceration without foreign body of right elbow, initial encounter; D72.829 Elevated white blood cell count, unspecified; Z66 Do not resuscitate; Z79.84 Long term (current) use of oral hypoglycemic drugs
CPT/HCPCS: 2NASP; 82570; 83519; 84156; 84166; 36592; 71045; 72170; 73080-LT; 73080-RT; 73090-LT; 73090-RT; 73100-LT; 73100-RT; 74177; 74230; 80307; 81003; 82436; 82652; 84165; 87086; 93005; 93010; 96360; 97110-GO; 97112-GO; 97116-GO; 97162-GP; 97165-GO; 97530-GO; G0480; J0131; J1642; J1644; J1815; J7040; J7042